=== PATIENT | male | born 1955 | race Caucasian/White ===

== ENCOUNTER 2016-09-13 17:59 | Emergency (ER) | payer BC, MEDICARE ==
[2016-09-13 18:35] VITALS: BP 136/67
[2016-09-13] MEDS ORDERED: Acetaminophen/HYDROcodone 325-5 MG Tab PO ONE (19:09)
--- NOTE | 2016-09-15 10:20 | ER ---
DATE SEEN: 09/13/2016 HISTORY OF PRESENT ILLNESS: The patient is a 60-year-old gentleman, who is status post left total knee replacement, who last , now 3 days ago, had his kim removed and Steri-Strips applied. He states he has been doing relatively well until yesterday when he started having discharge from this wound. He tried to elevate and apply pressure and ice, but still had a little bit of swelling. He states that he has gone through his hydrocodone, has been using ibuprofen and acetaminophen for pain with a little bit of relief, but not much. He has oxycodone, that he has been using and that seems to help a little bit more. He otherwise denies any fevers, chills, nausea, or vomiting. MEDICATIONS: 1. Trazodone. 2. Omeprazole. 3. Prozac. 4. Effexor. 5. Celebrex. 6. Hyzaar. ALLERGIES: No known drug allergies. PAST MEDICAL HISTORY: Depression, knee replacement, and hypertension. REVIEW OF SYSTEMS: RESPIRATORY: No shortness of breath. HEMATOLOGIC: He had an ultrasound done last week for left knee swelling in this region, which was negative for DVT. PHYSICAL EXAMINATION: VITAL SIGNS: Temperature 36.8, blood pressure 136/67, respiratory rate 18, and 100% on room air. GENERAL: He is in no apparent acute distress. EXTREMITIES: Left knee has a midline incision and Steri-Strips applied. There is scant discharge coming out of the lower one-third. His range of motion is limited, but he can flex and extend. EMERGENCY DEPARTMENT COURSE: Area of the wound incision was cleaned. Pressure dressing applied. There has been no recurrent bleeding. ASSESSMENT: Status post left knee replacement with bleeding. PLAN: Elevate, ice, and keep pressure dressing until Thursday, and then follow up with Orthopedics on Thursday. /[id number] GENA/AURELIA
== END 2016-09-13 19:20 | disposition home or self-care (01) ==
LOC: FB.ED 17:59
DX: M96.830 Postprocedural hemorrhage of a musculoskeletal structure following a musculoskeletal system procedure (principal); Z96.652 Presence of left artificial knee joint; I10 Essential (primary) hypertension; F32.9 Major depressive disorder, single episode, unspecified
CPT/HCPCS: 99282; A9270-GY

== ENCOUNTER 2016-09-23 09:57 | Inpatient (IN) | payer BC, MEDICARE ==
[2016-09-23] MEDS: ceFAZolin 2 GM in Premix Bag 1 BAG IV SCH ×2 (15:50→23:51)
[2016-09-23] MEDS: Acetaminophen/HYDROcodone 325-5 MG Tab PO PRN ×2 (15:52→22:46)
[2016-09-23] MEDS ORDERED: ceFAZolin 1 GM in Sodium Chloride 0.9% 50 ML IV SCH (16:00)
[2016-09-23] MEDS ORDERED: Loratadine 10 MG Tab PO PRN (16:12)
[2016-09-23] MEDS: Sodium Chloride 0.9% 10 ML Syringe FLUSH PRN (17:33)
[2016-09-23] MEDS: Heparin Sodium 10 Units/ML 5 ML Syringe FLUSH SCH (17:33)
[2016-09-23] MEDS: FLUoxetine 20 MG Cap PO SCH (17:34)
[2016-09-23] MEDS: Sodium Chloride 0.9% 250 ML IV SCH (17:34)
[2016-09-23] MEDS: Docusate Sodium 100 MG Cap PO SCH ×2 (17:50→20:52)
--- NOTE | 2016-09-23 17:51 | PCM.HP ---
H&P History of Present Illness - General Date of Service: 09/23/16 Admit Problem/Dx: Admission Diagnosis/Problem Admission Diagnosis/Problem Postoperative infection Source of Information: Patient History Limitations: Reports: No Limitations - History of Present Illness Initial Comments - Free Text/Narative: This is a 60-year-old male patient that had a left knee replacement on 08/26/69. He did well until 2 weeks ago and started having some pain and redness. He was evaluated by Dr. Cy Morris who did his surgery. He was found to have abscess in the joint and was admitted to the hospital for IV antibiotics and ID consultation. According to the patient they did surgery and open up the joint and cleaned it out. He is transferred down here for stream bed, PT, OT and IV antibiotics with a PICC line. RIGHTLOWER ARM\HAND Pain Score (Numeric/FACES): 8 LEFT KNEE\LOWER LEG Pain Score (Numeric/FACES): 8 - Related Data Allergies/Adverse Reactions: Allergies Allergy/AdvReac Type Severity Reaction Status Date / Time BARLEY GRAIN Allergy Difficulty Uncoded 09/23/16 14:41 Breathing Home Medications: Home Meds FLUoxetine [PROzac] 20 mg PO WITHDINNER 09/13/16 [History] Losartan/Hydrochlorothiazide [Hyzaar 100-25 Tablet] 1 tab PO DAILY 09/13/16 [ History] Omeprazole 20 mg PO DAILY 09/13/16 [History] Venlafaxine [Effexor] 75 mg PO BID 09/13/16 [History] traZODone HCl [Trazodone HCl] 100 mg PO BEDTIME 09/13/16 [History] Acetaminophen [Acetaminophen Extra Strength] 1,000 mg PO Q6H PRN 09/23/16 [ History] Acetaminophen/HYDROcodone [[place] 325-5 MG] 2 tab PO Q4H PRN 09/23/16 [History] Aspirin [Ecotrin] 325 mg PO BID 09/23/16 [History] Gabapentin [Neurontin] 300 mg PO BID 09/23/16 [History] Loratadine 10 mg PO DAILY PRN 09/23/16 [History] Metoprolol Tartrate [Lopressor] 25 mg PO BID 09/23/16 [History] Morphine [MS Contin] 15 mg PO BID 09/23/16 [History] Multivitamin [Daily Jorge] 1 tab PO DAILY 09/23/16 [History] Rifampin 300 mg PO Q12H 09/23/16 [History] hydrOXYzine Pamoate [Vistaril] 25 mg PO Q4H PRN 09/23/16 [History] Past Medical History HEENT History: Reports: Epistaxis, Hard of Hearing, Impaired Vision, Otitis Media, Sinusitis Cardiovascular History: Reports: Afib, Hypertension, SOB on Exertion Respiratory History: Reports: Bronchitis, Recurrent, SOB Gastrointestinal History: Reports: GERD, Hemorrhoids, Other (See Below) Other Gastrointestinal History: OBESITY Genitourinary History: Reports: UTI, Recurrent Musculoskeletal History: Reports: Arthritis, Back Pain, Chronic, Fracture, Osteoarthritis Psychiatric History: Reports: Depression Dermatologic History: Reports: Other (See Below) Other Dermatologic History: 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 KNEE REPLACEMENTS, BUNIONECTOMY ON LEFT FOOT, BACK SURGERY Dermatological Surgical History: Reports: None Social & Family History - Family History Family Medical History: Noncontributory - Tobacco Use Smoking Status *Q: Never Smoker Second Hand Smoke Exposure: No - Caffeine Use Caffeine Use: Reports: Soda Other Caffeine Use: ABOUT 3 CANS COKE PER DAY. - Recreational Drug Use Recreational Drug Use: No H&P Review of Systems - Review of Systems: Review Of Systems: See Below General: Reports: No Symptoms HEENT: Reports: No Symptoms Pulmonary: Reports: No Symptoms Cardiovascular: Reports: No Symptoms Gastrointestinal: Reports: Constipation Genitourinary: Reports: No Symptoms Musculoskeletal: Reports: Joint Pain Skin: Reports: Other (Right forearm infiltration from IV that swollen.) Psychiatric: Reports: No Symptoms Neurological: Reports: No Symptoms Hematologic/Lymphatic: Reports: No Symptoms Immunologic: Reports: No Symptoms Exam - Exam Exam: See Below - Vital Signs Vital Signs: Last Vital Signs Temp 97.9 F 09/23/16 13:00 Pulse 68 09/23/16 13:00 Resp 24 H 09/23/16 13:00 BP 123/67 09/23/16 13:00 Pulse Ox 100 09/23/16 13:00 Weight: 326 lb 4 oz - Exam General: Alert, Oriented, Cooperative HEENT: Hearing Intact, Posterior Pharynx Clear, TMs Clear Neck: Supple, Trachea Midline, 2 Lungs: Clear to Auscultation, Normal Respiratory Effort Cardiovascular: Regular Rate, Regular Rhythm. No: Systolic Murmur, Diastolic Murmur Abdomen: Normal Bowel Sounds, Soft. No: Peritoneal Signs, Distention, Guarding Back Exam: Normal Inspection Extremities: Other (Right forearm has some swelling and some brownish color forearm. Left knee has a little erythema. [place] in place without any drainage in the left knee.) Skin: Other (See above) Neuro Extensive - Mental Status: Alert, Oriented x3, Normal Mood/Affect, Normal Cognition Neuro Extensive - Motor, Sensory, Reflexes: No: Normal Gait Psychiatric: Alert, Normal Affect, Normal Mood *Q Meaningful Use (ADM) - VTE *Q VTE Criteria *Q: - Stroke *Q Stroke Criteria *Q: - AMI *Q AMI Criteria *Q: - Problem List (1) MRSA (methicillin resistant Staphylococcus aureus) infection SNOMED Code(s): 068956226 ICD Code: A49.02 - METHICILLIN RESIS STAPH INFECTION, UNSP SITE Status: Acute Current Visit: Yes (2) IV infiltration SNOMED Code(s): 96138989 ICD Code: T80.1XXA - VASCULAR COMP FOL INFUSN, TRANFS AND THERAPUTC INJECT, INIT Status: Acute Current Visit: Yes Problem List Initiated/Reviewed/Updated: Yes Orders Last 24hrs: Active Orders 24 hr Category Date Time Status Patient Status [ADT] Routine ADT 09/23/16 14:29 Active Oxygen Therapy [RC] PRN Care 09/23/16 14:29 Active Up With Assistance [RC] ASDIRECTED Care 09/23/16 14:29 Active VTE/DVT Education [RC] Per Unit Routine Care 09/23/16 14:29 Active Vital Signs [RC] 08 Care 09/23/16 14:29 Active Consult to Occupational Therapy [OT Evaluation and Cons 09/23/16 17:11 Active Treatment] [CONS] Routine Consult to Physical Therapy [PT Evaluation and Cons 09/23/16 17:11 Active Treatment] [CONS] Routine Regular Diet [DIET] Diet 09/23/16 Dinner Active CBC WITH AUTO DIFF [HEME] Routine Lab 09/29/16 05:11 Ordered CREATININE W/GFR [CHEM] Routine Lab 09/29/16 06:00 Ordered HEPATIC FUNCTION PANEL,HFP [CHEM] Routine Lab 09/29/16 06:00 Ordered Acetaminophen [Tylenol Extra Strength] Med 09/23/16 14:27 Active 1,000 mg PO Q6H PRN Acetaminophen/HYDROcodone [[place] 325-5 MG] Med 09/23/16 14:27 Active 2 tab PO Q4H PRN Aspirin [Ecotrin] Med 09/23/16 21:00 Active 325 mg PO BID Docusate Sodium [Colace] Med 09/23/16 17:15 Active 100 mg PO BID FLUoxetine [PROzac] Med 09/23/16 18:00 Active 20 mg PO WITHDINNER Gabapentin [Neurontin] Med 09/23/16 21:00 Active 300 mg PO BID Heparin Sodium [Heparin Lock Flush 10 Units/ML] Med 09/23/16 17:00 Active 50 unit FLUSH Q8H Hydrochlorothiazide/Losartan [Hyzaar 100-25 MG] Med 09/24/16 09:00 Active 1 tab PO DAILY Loratadine [Claritin] Med 09/23/16 16:12 Active 10 mg PO DAILY PRN Metoprolol Tartrate [Lopressor] Med 09/23/16 21:00 Active 25 mg PO BID Morphine [MS Contin] Med 09/23/16 21:00 Active 15 mg PO BID Multivitamins [Tab-A-Jorge] Med 09/24/16 09:00 Active 1 tab PO DAILY Omeprazole Med 09/24/16 06:00 Active 20 mg PO DAILY@0600 Rifampin [Rifadin] Med 09/23/16 21:00 Active 300 mg PO BID Sodium Chloride 0.9% [Normal Saline] 250 ml Med 09/23/16 16:15 Active IV ASDIRECTED Sodium Chloride 0.9% [Saline Flush] Med 09/23/16 16:12 Active 10 ml FLUSH ASDIRECTED PRN Venlafaxine [Effexor] Med 09/23/16 21:00 Active 75 mg PO BID ceFAZolin [Ancef] 2 gm Med 09/23/16 16:00 Active Premix Bag 1 bag IV Q8H hydrOXYzine HCl [Atarax] Med 09/23/16 14:44 Active 25 mg PO Q4H PRN traZODone Med 09/23/16 21:00 Active 100 mg PO BEDTIME Resuscitation Status Routine Resus Stat 09/23/16 14:29 Ordered Medication Orders Acetaminophen (Tylenol Extra Strength) 1,000 mg PO Q6H PRN PRN Reason: MILD PAIN Hydrocodone Bitart/Acetaminophen ([place] 325-5 Mg) 2 tab PO Q4H PRN PRN Reason: Pain Last Admin: 09/23/16 15:52 Dose: 2 tab Aspirin (Ecotrin) 325 mg PO BID [facility] Docusate Sodium (Colace) 100 mg PO BID [facility] Fluoxetine HCl (Prozac) 20 mg PO WITHDINNER [facility] Last Admin: 09/23/16 17:34 Dose: 20 mg Gabapentin (Neurontin) 300 mg PO BID [facility] HCTZ/Losartan Potassium (Hyzaar 100-25 Mg) 1 tab PO DAILY [facility] Heparin Sodium (Porcine) (Heparin Lock Flush 10 Units/Ml) 50 unit FLUSH Q8H [facility] Last Admin: 09/23/16 17:33 Dose: 50 unit Hydroxyzine HCl (Atarax) 25 mg PO Q4H PRN PRN Reason: PAIN/ITCHING Cefazolin Sodium/Dextrose 2 gm (/ Premix) 50 mls @ 100 mls/hr IV Q8H [facility] Stop: 10/29/16 18:00 Last Admin: 09/23/16 15:50 Dose: 100 mls/hr Sodium Chloride (Normal Saline) 250 mls @ 100 mls/hr IV ASDIRECTED [facility] Last Admin: 09/23/16 17:34 Dose: 100 mls/hr Loratadine (Claritin) 10 mg PO DAILY PRN PRN Reason: ALLERGIES Metoprolol Tartrate (Lopressor) 25 mg PO BID [facility] Morphine Sulfate (Ms Contin) 15 mg PO BID [facility] Multivitamins/Minerals/Vitamin C (Tab-A-Jorge) 1 tab PO DAILY [facility] Omeprazole (Omeprazole) 20 mg PO DAILY@0600 [facility] Rifampin (Rifadin) 300 mg PO BID [facility] Sodium Chloride (Saline Flush) 10 ml FLUSH ASDIRECTED PRN PRN Reason: Keep Vein Open Last Admin: 09/23/16 17:33 Dose: 10 ml Trazodone HCl (Trazodone) 100 mg PO BEDTIME [facility] Venlafaxine HCl (Effexor) 75 mg PO BID [facility] Assessment/Plan Comment:: 1. Patient admitted to swing bed for IV antibiotics/PT/OT on full code. 2. Regular diet 3. Upper PT/OT. 4. PICC line with IV antibiotics per infectious disease. Infectious disease
[2016-09-23] MEDS: Aspirin 325 MG Tab.EC PO SCH (20:31)
[2016-09-23] MEDS: Venlafaxine 75 MG Tab PO SCH (20:32)
[2016-09-23] MEDS: Metoprolol Tartrate 25 MG Tab PO SCH (20:33)
[2016-09-23] MEDS: Morphine 15 MG Tab.ER PO SCH (20:34)
[2016-09-23] MEDS: traZODone 100 MG Tab PO SCH (20:37)
[2016-09-23] MEDS: Rifampin 150 MG Cap PO SCH (20:38)
[2016-09-23] MEDS: Gabapentin 300 MG Cap PO SCH (20:43)
[2016-09-23] MEDS ORDERED: Rifampin 300 MG Cap PO SCH (21:00)
[2016-09-24] MEDS: Acetaminophen/HYDROcodone 325-5 MG Tab PO PRN ×3 (03:15→19:16)
[2016-09-24] MEDS: hydrOXYzine HCl 25 MG Tab PO PRN ×2 (03:15→21:57)
[2016-09-24] MEDS: Omeprazole 20 MG Cap.CR PO SCH (05:16)
[2016-09-24] MEDS: Morphine 15 MG Tab.ER PO SCH ×2 (08:47→21:54)
[2016-09-24] MEDS: Acetaminophen 500 MG Tab PO PRN (08:48)
[2016-09-24] MEDS: Docusate Sodium 100 MG Cap PO SCH ×2 (08:51→21:50)
[2016-09-24] MEDS: Aspirin 325 MG Tab.EC PO SCH ×2 (08:51→21:50)
[2016-09-24] MEDS: Venlafaxine 75 MG Tab PO SCH ×2 (08:51→21:51)
[2016-09-24] MEDS: Hydrochlorothiazide/Losartan 25-100 MG Tab PO SCH (08:52)
[2016-09-24] MEDS: Metoprolol Tartrate 25 MG Tab PO SCH ×2 (08:53→21:51)
[2016-09-24] MEDS: Rifampin 150 MG Cap PO SCH ×2 (08:54→21:56)
[2016-09-24] MEDS: Multivitamin Tab PO SCH (08:55)
[2016-09-24] MEDS: Gabapentin 300 MG Cap PO SCH ×2 (08:55→21:54)
[2016-09-24] MEDS: Sodium Chloride 0.9% 10 ML Syringe FLUSH PRN (08:56)
[2016-09-24] MEDS: ceFAZolin 2 GM in Premix Bag 1 BAG IV SCH ×2 (08:58→16:26)
[2016-09-24] MEDS: Sodium Chloride 0.9% 250 ML IV SCH (08:58)
[2016-09-24] MEDS: Heparin Sodium 10 Units/ML 5 ML Syringe FLUSH SCH ×3 (10:35→17:15)
[2016-09-24] MEDS: FLUoxetine 20 MG Cap PO SCH (17:16)
[2016-09-24] MEDS: traZODone 100 MG Tab PO SCH (21:56)
[2016-09-25] MEDS: Sodium Chloride 0.9% 10 ML Syringe FLUSH PRN ×5 (01:55→15:56)
[2016-09-25] MEDS: Heparin Sodium 10 Units/ML 5 ML Syringe FLUSH SCH ×3 (01:55→16:56)
[2016-09-25] MEDS: Acetaminophen/HYDROcodone 325-5 MG Tab PO PRN ×4 (01:56→20:15)
[2016-09-25] MEDS: Omeprazole 20 MG Cap.CR PO SCH (05:56)
[2016-09-25] MEDS: ceFAZolin 2 GM in Premix Bag 1 BAG IV SCH ×5 (07:59→23:37)
[2016-09-25] MEDS: Sodium Chloride 0.9% 250 ML IV SCH (08:00)
[2016-09-25] MEDS: Docusate Sodium 100 MG Cap PO SCH ×2 (08:09→20:18)
[2016-09-25] MEDS: Aspirin 325 MG Tab.EC PO SCH ×2 (08:09→20:19)
[2016-09-25] MEDS: Venlafaxine 75 MG Tab PO SCH ×2 (08:10→20:19)
[2016-09-25] MEDS: Hydrochlorothiazide/Losartan 25-100 MG Tab PO SCH (08:10)
[2016-09-25] MEDS: Metoprolol Tartrate 25 MG Tab PO SCH ×2 (08:10→20:19)
[2016-09-25] MEDS: Gabapentin 300 MG Cap PO SCH ×2 (08:11→20:20)
[2016-09-25] MEDS: Rifampin 150 MG Cap PO SCH ×2 (08:11→20:21)
[2016-09-25] MEDS: Multivitamin Tab PO SCH (08:11)
[2016-09-25] MEDS: Morphine 15 MG Tab.ER PO SCH ×2 (08:32→20:40)
[2016-09-25] MEDS: FLUoxetine 20 MG Cap PO SCH (18:41)
[2016-09-25] MEDS: traZODone 100 MG Tab PO SCH (20:21)
[2016-09-25] MEDS: hydrOXYzine HCl 25 MG Tab PO PRN (23:36)
[2016-09-26] MEDS: Heparin Sodium 10 Units/ML 5 ML Syringe FLUSH SCH ×3 (00:29→17:03)
[2016-09-26] MEDS: Omeprazole 20 MG Cap.CR PO SCH (05:53)
[2016-09-26] MEDS: Acetaminophen/HYDROcodone 325-5 MG Tab PO PRN ×2 (07:37→15:57)
[2016-09-26] MEDS: ceFAZolin 2 GM in Premix Bag 1 BAG IV SCH ×2 (08:43→16:02)
[2016-09-26] MEDS: Aspirin 325 MG Tab.EC PO SCH ×2 (08:43→20:32)
[2016-09-26] MEDS: Docusate Sodium 100 MG Cap PO SCH ×2 (08:43→20:32)
[2016-09-26] MEDS: Venlafaxine 75 MG Tab PO SCH ×2 (08:44→20:32)
[2016-09-26] MEDS: Morphine 15 MG Tab.ER PO SCH ×2 (08:45→20:40)
[2016-09-26] MEDS: Metoprolol Tartrate 25 MG Tab PO SCH ×2 (08:45→20:33)
[2016-09-26] MEDS: Hydrochlorothiazide/Losartan 25-100 MG Tab PO SCH (08:45)
[2016-09-26] MEDS: Gabapentin 300 MG Cap PO SCH ×2 (08:46→20:41)
[2016-09-26] MEDS: Multivitamin Tab PO SCH (08:46)
[2016-09-26] MEDS: Rifampin 150 MG Cap PO SCH ×2 (08:46→20:42)
[2016-09-26] MEDS: FLUoxetine 20 MG Cap PO SCH (17:21)
[2016-09-26] MEDS: hydrOXYzine HCl 25 MG Tab PO PRN (17:21)
[2016-09-26] MEDS: traZODone 100 MG Tab PO SCH (20:42)
[2016-09-27] MEDS: Heparin Sodium 10 Units/ML 5 ML Syringe FLUSH SCH ×3 (00:39→18:45)
[2016-09-27] MEDS: Acetaminophen/HYDROcodone 325-5 MG Tab PO PRN ×3 (00:50→14:11)
[2016-09-27] MEDS: Omeprazole 20 MG Cap.CR PO SCH (05:19)
[2016-09-27] MEDS: Sodium Chloride 0.9% 250 ML IV SCH (08:14)
[2016-09-27] MEDS: Sodium Chloride 0.9% 10 ML Syringe FLUSH PRN ×2 (08:14→09:33)
[2016-09-27] MEDS: ceFAZolin 2 GM in Premix Bag 1 BAG IV SCH ×5 (08:14→23:34)
[2016-09-27] MEDS: Aspirin 325 MG Tab.EC PO SCH ×2 (09:36→20:35)
[2016-09-27] MEDS: Metoprolol Tartrate 25 MG Tab PO SCH ×2 (09:36→20:36)
[2016-09-27] MEDS: Venlafaxine 75 MG Tab PO SCH ×2 (09:36→20:35)
[2016-09-27] MEDS: Multivitamin Tab PO SCH (09:37)
[2016-09-27] MEDS: Gabapentin 300 MG Cap PO SCH ×2 (09:37→20:36)
[2016-09-27] MEDS: Morphine 15 MG Tab.ER PO SCH ×2 (09:37→20:35)
[2016-09-27] MEDS: Hydrochlorothiazide/Losartan 25-100 MG Tab PO SCH (09:38)
[2016-09-27] MEDS: Rifampin 150 MG Cap PO SCH ×2 (09:38→20:36)
[2016-09-27] MEDS: Docusate Sodium 100 MG Cap PO SCH ×2 (09:39→20:34)
[2016-09-27] MEDS: FLUoxetine 20 MG Cap PO SCH (18:44)
[2016-09-27] MEDS: traZODone 100 MG Tab PO SCH (18:44)
[2016-09-27] MEDS: hydrOXYzine HCl 25 MG Tab PO PRN (19:13)
[2016-09-28] MEDS: Heparin Sodium 10 Units/ML 5 ML Syringe FLUSH SCH ×3 (00:25→18:13)
[2016-09-28] MEDS: Omeprazole 20 MG Cap.CR PO SCH (06:25)
[2016-09-28] MEDS: Morphine 15 MG Tab.ER PO SCH ×2 (09:02→20:10)
[2016-09-28] MEDS: ceFAZolin 2 GM in Premix Bag 1 BAG IV SCH ×3 (09:02→23:38)
[2016-09-28] MEDS: Aspirin 325 MG Tab.EC PO SCH ×2 (09:03→20:09)
[2016-09-28] MEDS: Gabapentin 300 MG Cap PO SCH ×2 (09:03→20:11)
[2016-09-28] MEDS: Metoprolol Tartrate 25 MG Tab PO SCH ×2 (09:03→20:09)
[2016-09-28] MEDS: Hydrochlorothiazide/Losartan 25-100 MG Tab PO SCH (09:04)
[2016-09-28] MEDS: Multivitamin Tab PO SCH (09:04)
[2016-09-28] MEDS: Venlafaxine 75 MG Tab PO SCH ×2 (09:05→20:09)
[2016-09-28] MEDS: Rifampin 150 MG Cap PO SCH ×2 (09:05→20:11)
[2016-09-28] MEDS: Docusate Sodium 100 MG Cap PO SCH ×2 (09:05→20:08)
[2016-09-28] MEDS: Sodium Chloride 0.9% 10 ML Syringe FLUSH PRN (09:51)
[2016-09-28] MEDS: traZODone 100 MG Tab PO SCH (18:57)
[2016-09-28] MEDS: FLUoxetine 20 MG Cap PO SCH (18:57)
[2016-09-28] MEDS: Acetaminophen/HYDROcodone 325-5 MG Tab PO PRN (18:57)
[2016-09-28] MEDS: hydrOXYzine HCl 25 MG Tab PO PRN (18:57)
[2016-09-29] MEDS: Heparin Sodium 10 Units/ML 5 ML Syringe FLUSH SCH ×3 (00:29→17:05)
[2016-09-29] MEDS: Omeprazole 20 MG Cap.CR PO SCH (05:35)
[2016-09-29] MEDS: Sodium Chloride 0.9% 10 ML Syringe FLUSH PRN ×2 (06:33→17:06)
[2016-09-29] MEDS: Morphine 15 MG Tab.ER PO SCH ×2 (08:31→21:09)
[2016-09-29] MEDS: Multivitamin Tab PO SCH (08:33)
[2016-09-29] MEDS: Docusate Sodium 100 MG Cap PO SCH ×2 (08:33→21:10)
[2016-09-29] MEDS: Aspirin 325 MG Tab.EC PO SCH ×2 (08:33→21:10)
[2016-09-29] MEDS: ceFAZolin 2 GM in Premix Bag 1 BAG IV SCH ×2 (08:33→17:05)
[2016-09-29] MEDS: Venlafaxine 75 MG Tab PO SCH ×2 (08:34→21:10)
[2016-09-29] MEDS: Hydrochlorothiazide/Losartan 25-100 MG Tab PO SCH (08:34)
[2016-09-29] MEDS: Rifampin 150 MG Cap PO SCH ×2 (08:35→21:10)
[2016-09-29] MEDS: Gabapentin 300 MG Cap PO SCH ×2 (08:35→21:10)
[2016-09-29] MEDS: Metoprolol Tartrate 25 MG Tab PO SCH ×2 (08:44→21:10)
[2016-09-29] MEDS: traZODone 100 MG Tab PO SCH (17:06)
[2016-09-29] MEDS: FLUoxetine 20 MG Cap PO SCH (17:06)
[2016-09-29] MEDS: Sodium Chloride 0.9% 250 ML IV SCH (17:08)
[2016-09-29] MEDS: hydrOXYzine HCl 25 MG Tab PO PRN (17:28)
[2016-09-29] MEDS: Acetaminophen/HYDROcodone 325-5 MG Tab PO PRN (17:29)
[2016-09-30] MEDS: ceFAZolin 2 GM in Premix Bag 1 BAG IV SCH ×4 (00:02→23:49)
[2016-09-30] MEDS: Heparin Sodium 10 Units/ML 5 ML Syringe FLUSH SCH ×3 (00:48→17:07)
[2016-09-30] MEDS: Omeprazole 20 MG Cap.CR PO SCH (06:13)
[2016-09-30] MEDS: Sodium Chloride 0.9% 10 ML Syringe FLUSH PRN (08:03)
[2016-09-30] MEDS: Rifampin 150 MG Cap PO SCH ×2 (08:11→20:52)
[2016-09-30] MEDS: Metoprolol Tartrate 25 MG Tab PO SCH ×2 (08:11→20:50)
[2016-09-30] MEDS: Multivitamin Tab PO SCH (08:11)
[2016-09-30] MEDS: Aspirin 325 MG Tab.EC PO SCH ×2 (08:11→20:51)
[2016-09-30] MEDS: Gabapentin 300 MG Cap PO SCH ×2 (08:11→20:52)
[2016-09-30] MEDS: Venlafaxine 75 MG Tab PO SCH ×2 (08:11→20:51)
[2016-09-30] MEDS: Hydrochlorothiazide/Losartan 25-100 MG Tab PO SCH (08:11)
[2016-09-30] MEDS: Docusate Sodium 100 MG Cap PO SCH ×2 (08:11→20:50)
[2016-09-30] MEDS: Morphine 15 MG Tab.ER PO SCH ×2 (08:52→20:51)
[2016-09-30] MEDS: Acetaminophen/HYDROcodone 325-5 MG Tab PO PRN (14:53)
[2016-09-30] MEDS: FLUoxetine 20 MG Cap PO SCH (17:08)
[2016-09-30] MEDS: traZODone 100 MG Tab PO SCH (17:09)
[2016-09-30] MEDS: hydrOXYzine HCl 25 MG Tab PO PRN (19:47)
[2016-09-30] MEDS: Sodium Chloride 0.9% 250 ML IV SCH (23:48)
[2016-10-01] MEDS: Heparin Sodium 10 Units/ML 5 ML Syringe FLUSH SCH ×3 (00:37→17:03)
[2016-10-01] MEDS: Omeprazole 20 MG Cap.CR PO SCH (06:09)
[2016-10-01] MEDS: hydrOXYzine HCl 25 MG Tab PO PRN (06:09)
[2016-10-01] MEDS: ceFAZolin 2 GM in Premix Bag 1 BAG IV SCH ×3 (07:23→23:45)
[2016-10-01] MEDS: Hydrochlorothiazide/Losartan 25-100 MG Tab PO SCH (08:40)
[2016-10-01] MEDS: Rifampin 150 MG Cap PO SCH ×2 (08:40→20:58)
[2016-10-01] MEDS: Gabapentin 300 MG Cap PO SCH ×2 (08:40→20:58)
[2016-10-01] MEDS: Morphine 15 MG Tab.ER PO SCH ×2 (08:41→20:57)
[2016-10-01] MEDS: Docusate Sodium 100 MG Cap PO SCH ×2 (08:41→20:50)
[2016-10-01] MEDS: Venlafaxine 75 MG Tab PO SCH ×2 (08:41→20:50)
[2016-10-01] MEDS: Aspirin 325 MG Tab.EC PO SCH ×2 (08:42→20:50)
[2016-10-01] MEDS: Multivitamin Tab PO SCH (08:42)
[2016-10-01] MEDS: Sodium Chloride 0.9% 10 ML Syringe FLUSH PRN ×3 (08:44→17:03)
[2016-10-01] MEDS: Metoprolol Tartrate 25 MG Tab PO SCH ×2 (09:00→20:51)
[2016-10-01] MEDS: Acetaminophen/HYDROcodone 325-5 MG Tab PO PRN ×2 (12:04→17:04)
[2016-10-01] MEDS: Sodium Chloride 0.9% 250 ML IV SCH (16:07)
[2016-10-01] MEDS: FLUoxetine 20 MG Cap PO SCH (17:05)
[2016-10-01] MEDS: traZODone 100 MG Tab PO SCH (17:05)
[2016-10-01] MEDS ORDERED: Enoxaparin 40 MG/0.4 ML Syringe SUBCUT SCH (21:00)
--- NOTE | 2016-10-01 21:11 | PCM.SN ---
- Free Text/Narrative Note: asked to see pt by daughter due to concerns for peripheral edema, increased pain in the right and left leg, and concern for DVT. currently swingbed for 2wk IV antibiotics and PT secondary to left knee joint infection s/p Left TKA, with culture positive for MSSA and now on IV ancef. He has done quite well with Pt. today seem to really 'tree' him out as his legs were more swollen and his feet were also beginning to hurt. Jonathan wraps applied and he notes this has helped. Exam shows bilateral edema up to knees. symetric minimal warmth that is equal and no additional swelling or thigh pain. knee other lin healthy. sensation and perfusion intact. 3+ pitting edema to the feet and ankles. cap refill <2sec and feet warm. US bilateral negative for DVTs. Pt and his daughter were reassured. will add jonathan to the right leg as well. will get his pain medication scheduled rather that prn as he was under the impression that they would just bring it to him instead of his needing to request it. therefore we have gotten behind on pain control. he knows now that it will be scheduled and that if he dose not need it, then he can refuse it at that time. all question answered and they are both comfortable with plan and reassured.
[2016-10-01] MEDS: Acetaminophen/HYDROcodone 325-5 MG Tab PO SCH (22:11)
[2016-10-02] MEDS: Heparin Sodium 10 Units/ML 5 ML Syringe FLUSH SCH ×3 (00:37→17:15)
[2016-10-02] MEDS: Acetaminophen/HYDROcodone 325-5 MG Tab PO SCH ×4 (03:42→22:47)
[2016-10-02] MEDS: Omeprazole 20 MG Cap.CR PO SCH (07:03)
[2016-10-02] MEDS: Aspirin 325 MG Tab.EC PO SCH ×2 (08:13→21:02)
[2016-10-02] MEDS: Docusate Sodium 100 MG Cap PO SCH ×2 (08:13→21:01)
[2016-10-02] MEDS: Rifampin 150 MG Cap PO SCH ×2 (08:13→21:03)
[2016-10-02] MEDS: Multivitamin Tab PO SCH (08:13)
[2016-10-02] MEDS: Hydrochlorothiazide/Losartan 25-100 MG Tab PO SCH (08:13)
[2016-10-02] MEDS: ceFAZolin 2 GM in Premix Bag 1 BAG IV SCH ×2 (08:13→16:11)
[2016-10-02] MEDS: Venlafaxine 75 MG Tab PO SCH ×2 (08:13→21:02)
[2016-10-02] MEDS: Gabapentin 300 MG Cap PO SCH ×2 (08:13→21:03)
[2016-10-02] MEDS: Morphine 15 MG Tab.ER PO SCH ×2 (08:23→21:02)
[2016-10-02] MEDS: Metoprolol Tartrate 25 MG Tab PO SCH ×2 (08:24→21:02)
[2016-10-02] MEDS: Sodium Chloride 0.9% 250 ML IV SCH (16:21)
[2016-10-02] MEDS: Sodium Chloride 0.9% 10 ML Syringe FLUSH PRN (16:24)
--- NOTE | 2016-10-02 16:28 | US ---
INDICATION: Pain and swelling in legs. DUPLEX ULTRASOUND, RIGHT AND LEFT LOWER EXTREMITY VEINS: Utilizing 2-D real time, duplex Doppler spectral analysis, and color flow imaging, examination of the right and left lower extremity veins revealed no evidence of deep venous thrombosis or obstruction. Compression views showed no abnormal lack of compression to suggest thrombosis. The patient was unable to perform Valsalva. Valvular competence was not evaluated. Interstitial edema is noted in the calves, limiting visualization of the anterior tibial and peroneal veins. IMPRESSION: 1. Duplex ultrasound, right and left lower extremity veins, shows no evidence of deep venous thrombosis. 2. Valvular competence was not evaluated. MTDD
[2016-10-02] MEDS: FLUoxetine 20 MG Cap PO SCH (17:16)
[2016-10-02] MEDS: traZODone 100 MG Tab PO SCH (17:17)
[2016-10-02] MEDS: hydrOXYzine HCl 25 MG Tab PO PRN (17:30)
[2016-10-02] MEDS: Enoxaparin 40 MG/0.4 ML Syringe SUBCUT SCH (21:02)
[2016-10-03] MEDS: ceFAZolin 2 GM in Premix Bag 1 BAG IV SCH ×4 (00:30→23:52)
[2016-10-03] MEDS: Heparin Sodium 10 Units/ML 5 ML Syringe FLUSH SCH ×3 (00:42→16:46)
[2016-10-03] MEDS: Acetaminophen/HYDROcodone 325-5 MG Tab PO SCH ×4 (05:00→21:26)
[2016-10-03] MEDS: Omeprazole 20 MG Cap.CR PO SCH (05:00)
[2016-10-03] MEDS: Aspirin 325 MG Tab.EC PO SCH ×2 (08:31→20:20)
[2016-10-03] MEDS: Docusate Sodium 100 MG Cap PO SCH ×2 (08:31→20:19)
[2016-10-03] MEDS: Hydrochlorothiazide/Losartan 25-100 MG Tab PO SCH (08:31)
[2016-10-03] MEDS: Metoprolol Tartrate 25 MG Tab PO SCH ×2 (08:31→20:21)
[2016-10-03] MEDS: Morphine 15 MG Tab.ER PO SCH ×2 (08:31→21:28)
[2016-10-03] MEDS: Loratadine 10 MG Tab PO SCH (08:31)
[2016-10-03] MEDS: Venlafaxine 75 MG Tab PO SCH ×2 (08:31→20:20)
[2016-10-03] MEDS: Multivitamin Tab PO SCH (08:32)
[2016-10-03] MEDS: Gabapentin 300 MG Cap PO SCH ×2 (08:32→20:27)
[2016-10-03] MEDS: Rifampin 150 MG Cap PO SCH ×2 (08:32→20:27)
[2016-10-03] MEDS: Sodium Chloride 0.9% 10 ML Syringe FLUSH PRN ×2 (15:45→16:46)
[2016-10-03] MEDS: FLUoxetine 20 MG Cap PO SCH (17:01)
[2016-10-03] MEDS: traZODone 100 MG Tab PO SCH (17:01)
[2016-10-03] MEDS: Enoxaparin 40 MG/0.4 ML Syringe SUBCUT SCH (20:25)
[2016-10-03] MEDS: hydrOXYzine HCl 25 MG Tab PO PRN (21:27)
[2016-10-04] MEDS: Heparin Sodium 10 Units/ML 5 ML Syringe FLUSH SCH ×3 (00:18→17:31)
[2016-10-04] MEDS: Acetaminophen/HYDROcodone 325-5 MG Tab PO SCH ×4 (03:30→21:57)
[2016-10-04] MEDS: Omeprazole 20 MG Cap.CR PO SCH (06:38)
[2016-10-04] MEDS: Sodium Chloride 0.9% 10 ML Syringe FLUSH PRN ×2 (08:21→16:35)
[2016-10-04] MEDS: Sodium Chloride 0.9% 250 ML IV SCH (08:22)
[2016-10-04] MEDS: ceFAZolin 2 GM in Premix Bag 1 BAG IV SCH ×2 (08:22→16:32)
[2016-10-04] MEDS: Loratadine 10 MG Tab PO SCH (09:28)
[2016-10-04] MEDS: Aspirin 325 MG Tab.EC PO SCH ×2 (09:28→21:08)
[2016-10-04] MEDS: Hydrochlorothiazide/Losartan 25-100 MG Tab PO SCH (09:28)
[2016-10-04] MEDS: Docusate Sodium 100 MG Cap PO SCH ×2 (09:28→21:08)
[2016-10-04] MEDS: Venlafaxine 75 MG Tab PO SCH ×2 (09:29→21:08)
[2016-10-04] MEDS: Metoprolol Tartrate 25 MG Tab PO SCH ×2 (09:30→21:08)
[2016-10-04] MEDS: Gabapentin 300 MG Cap PO SCH ×2 (09:32→21:08)
[2016-10-04] MEDS: Multivitamin Tab PO SCH (09:33)
[2016-10-04] MEDS: Rifampin 150 MG Cap PO SCH ×2 (09:33→21:08)
[2016-10-04] MEDS: Morphine 15 MG Tab.ER PO SCH ×2 (09:44→21:11)
[2016-10-04] MEDS: hydrOXYzine HCl 25 MG Tab PO PRN ×2 (18:07→21:58)
[2016-10-04] MEDS: traZODone 100 MG Tab PO SCH (18:07)
[2016-10-04] MEDS: FLUoxetine 20 MG Cap PO SCH (18:08)
[2016-10-04] MEDS: Enoxaparin 40 MG/0.4 ML Syringe SUBCUT SCH (21:13)
[2016-10-05] MEDS: ceFAZolin 2 GM in Premix Bag 1 BAG IV SCH ×3 (00:07→16:31)
[2016-10-05] MEDS: Heparin Sodium 10 Units/ML 5 ML Syringe FLUSH SCH ×3 (00:49→17:22)
[2016-10-05] MEDS: Acetaminophen/HYDROcodone 325-5 MG Tab PO SCH ×3 (06:30→21:49)
[2016-10-05] MEDS: Omeprazole 20 MG Cap.CR PO SCH (06:30)
[2016-10-05] MEDS: Sodium Chloride 0.9% 250 ML IV SCH (08:17)
[2016-10-05] MEDS: Docusate Sodium 100 MG Cap PO SCH ×2 (08:45→21:38)
[2016-10-05] MEDS: Gabapentin 300 MG Cap PO SCH ×2 (08:45→21:42)
[2016-10-05] MEDS: Loratadine 10 MG Tab PO SCH (08:45)
[2016-10-05] MEDS: Morphine 15 MG Tab.ER PO SCH ×2 (08:45→21:50)
[2016-10-05] MEDS: Metoprolol Tartrate 25 MG Tab PO SCH ×2 (08:45→21:39)
[2016-10-05] MEDS: Aspirin 325 MG Tab.EC PO SCH ×2 (08:45→21:38)
[2016-10-05] MEDS: Hydrochlorothiazide/Losartan 25-100 MG Tab PO SCH (08:45)
[2016-10-05] MEDS: Venlafaxine 75 MG Tab PO SCH ×2 (08:45→21:38)
[2016-10-05] MEDS: Multivitamin Tab PO SCH (08:46)
[2016-10-05] MEDS: Rifampin 150 MG Cap PO SCH ×2 (08:46→21:38)
[2016-10-05] MEDS: Sodium Chloride 0.9% 10 ML Syringe FLUSH PRN ×2 (16:32→17:23)
[2016-10-05] MEDS: FLUoxetine 20 MG Cap PO SCH (17:23)
[2016-10-05] MEDS: traZODone 100 MG Tab PO SCH (17:23)
[2016-10-05] MEDS: hydrOXYzine HCl 25 MG Tab PO PRN (17:23)
[2016-10-05] MEDS: Enoxaparin 40 MG/0.4 ML Syringe SUBCUT SCH (21:42)
[2016-10-06] MEDS: ceFAZolin 2 GM in Premix Bag 1 BAG IV SCH ×3 (00:07→16:03)
[2016-10-06] MEDS: Heparin Sodium 10 Units/ML 5 ML Syringe FLUSH SCH ×3 (01:07→17:30)
[2016-10-06] MEDS: Acetaminophen/HYDROcodone 325-5 MG Tab PO SCH ×4 (02:32→20:20)
[2016-10-06] MEDS: Omeprazole 20 MG Cap.CR PO SCH (06:32)
[2016-10-06] MEDS: Sodium Chloride 0.9% 10 ML Syringe FLUSH PRN ×2 (08:20→09:13)
[2016-10-06] MEDS: Sodium Chloride 0.9% 250 ML IV SCH (09:14)
[2016-10-06] MEDS: Morphine 15 MG Tab.ER PO SCH ×2 (09:20→21:48)
[2016-10-06] MEDS: Docusate Sodium 100 MG Cap PO SCH ×2 (09:22→21:43)
[2016-10-06] MEDS: Loratadine 10 MG Tab PO SCH (09:22)
[2016-10-06] MEDS: Aspirin 325 MG Tab.EC PO SCH ×2 (09:22→21:43)
[2016-10-06] MEDS: Venlafaxine 75 MG Tab PO SCH ×2 (09:23→21:42)
[2016-10-06] MEDS: Metoprolol Tartrate 25 MG Tab PO SCH ×2 (09:23→21:41)
[2016-10-06] MEDS: Hydrochlorothiazide/Losartan 25-100 MG Tab PO SCH (09:23)
[2016-10-06] MEDS: Gabapentin 300 MG Cap PO SCH ×2 (09:24→21:42)
[2016-10-06] MEDS: Rifampin 150 MG Cap PO SCH ×2 (09:24→21:41)
[2016-10-06] MEDS: Multivitamin Tab PO SCH (09:24)
[2016-10-06] MEDS: FLUoxetine 20 MG Cap PO SCH (17:30)
[2016-10-06] MEDS: traZODone 100 MG Tab PO SCH (17:30)
[2016-10-06] MEDS: hydrOXYzine HCl 25 MG Tab PO PRN (20:24)
[2016-10-06] MEDS: Enoxaparin 40 MG/0.4 ML Syringe SUBCUT SCH (21:43)
[2016-10-07] MEDS: ceFAZolin 2 GM in Premix Bag 1 BAG IV SCH ×4 (00:16→23:57)
[2016-10-07] MEDS: Heparin Sodium 10 Units/ML 5 ML Syringe FLUSH SCH ×3 (01:10→16:38)
[2016-10-07] MEDS: Acetaminophen/HYDROcodone 325-5 MG Tab PO SCH ×4 (02:09→20:28)
[2016-10-07] MEDS: Omeprazole 20 MG Cap.CR PO SCH (05:34)
[2016-10-07] MEDS: Sodium Chloride 0.9% 10 ML Syringe FLUSH PRN ×2 (07:57→15:37)
[2016-10-07] MEDS: Loratadine 10 MG Tab PO SCH (08:12)
[2016-10-07] MEDS: Aspirin 325 MG Tab.EC PO SCH ×2 (08:13→20:27)
[2016-10-07] MEDS: Multivitamin Tab PO SCH (08:13)
[2016-10-07] MEDS: Rifampin 150 MG Cap PO SCH ×2 (08:13→20:27)
[2016-10-07] MEDS: Docusate Sodium 100 MG Cap PO SCH ×2 (08:13→20:27)
[2016-10-07] MEDS: Hydrochlorothiazide/Losartan 25-100 MG Tab PO SCH (08:14)
[2016-10-07] MEDS: Metoprolol Tartrate 25 MG Tab PO SCH ×2 (08:14→20:28)
[2016-10-07] MEDS: Gabapentin 300 MG Cap PO SCH ×2 (08:14→20:27)
[2016-10-07] MEDS: Venlafaxine 75 MG Tab PO SCH ×2 (08:15→20:27)
[2016-10-07] MEDS: Morphine 15 MG Tab.ER PO SCH ×3 (08:16→20:28)
[2016-10-07] MEDS: Sodium Chloride 0.9% 250 ML IV SCH (15:40)
[2016-10-07] MEDS: FLUoxetine 20 MG Cap PO SCH (18:13)
[2016-10-07] MEDS: traZODone 100 MG Tab PO SCH (18:13)
[2016-10-07] MEDS: hydrOXYzine HCl 25 MG Tab PO PRN (18:21)
[2016-10-07] MEDS: Enoxaparin 40 MG/0.4 ML Syringe SUBCUT SCH (20:28)
[2016-10-08] MEDS: Heparin Sodium 10 Units/ML 5 ML Syringe FLUSH SCH ×3 (00:47→16:51)
[2016-10-08] MEDS: Acetaminophen/HYDROcodone 325-5 MG Tab PO SCH ×4 (02:02→20:30)
[2016-10-08] MEDS: Omeprazole 20 MG Cap.CR PO SCH (06:32)
[2016-10-08] MEDS: Morphine 15 MG Tab.ER PO SCH ×2 (08:56→20:29)
[2016-10-08] MEDS: Loratadine 10 MG Tab PO SCH (09:04)
[2016-10-08] MEDS: Docusate Sodium 100 MG Cap PO SCH ×2 (09:04→20:23)
[2016-10-08] MEDS: Aspirin 325 MG Tab.EC PO SCH ×2 (09:05→20:23)
[2016-10-08] MEDS: Venlafaxine 75 MG Tab PO SCH ×2 (09:05→20:23)
[2016-10-08] MEDS: Hydrochlorothiazide/Losartan 25-100 MG Tab PO SCH (09:06)
[2016-10-08] MEDS: Metoprolol Tartrate 25 MG Tab PO SCH ×2 (09:06→20:23)
[2016-10-08] MEDS: Gabapentin 300 MG Cap PO SCH ×2 (09:08→20:27)
[2016-10-08] MEDS: Rifampin 150 MG Cap PO SCH ×2 (09:08→20:27)
[2016-10-08] MEDS: Multivitamin Tab PO SCH (09:09)
[2016-10-08] MEDS: Sodium Chloride 0.9% 10 ML Syringe FLUSH PRN (09:18)
[2016-10-08] MEDS: Sodium Chloride 0.9% 250 ML IV SCH (09:20)
[2016-10-08] MEDS: ceFAZolin 2 GM in Premix Bag 1 BAG IV SCH ×2 (09:22→15:56)
[2016-10-08] MEDS: traZODone 100 MG Tab PO SCH (17:59)
[2016-10-08] MEDS: FLUoxetine 20 MG Cap PO SCH (17:59)
[2016-10-08] MEDS: hydrOXYzine HCl 25 MG Tab PO PRN (18:06)
[2016-10-08] MEDS: Enoxaparin 40 MG/0.4 ML Syringe SUBCUT SCH (20:26)
[2016-10-09] MEDS: ceFAZolin 2 GM in Premix Bag 1 BAG IV SCH ×3 (00:37→15:32)
[2016-10-09] MEDS: Heparin Sodium 10 Units/ML 5 ML Syringe FLUSH SCH ×3 (00:39→17:07)
[2016-10-09] MEDS: Acetaminophen/HYDROcodone 325-5 MG Tab PO SCH ×4 (01:50→20:22)
[2016-10-09] MEDS: Omeprazole 20 MG Cap.CR PO SCH (06:31)
[2016-10-09] MEDS: Aspirin 325 MG Tab.EC PO SCH ×2 (08:10→20:23)
[2016-10-09] MEDS: Venlafaxine 75 MG Tab PO SCH ×2 (08:10→20:23)
[2016-10-09] MEDS: Loratadine 10 MG Tab PO SCH (08:10)
[2016-10-09] MEDS: Docusate Sodium 100 MG Cap PO SCH ×2 (08:10→20:23)
[2016-10-09] MEDS: Hydrochlorothiazide/Losartan 25-100 MG Tab PO SCH (08:11)
[2016-10-09] MEDS: Metoprolol Tartrate 25 MG Tab PO SCH ×2 (08:11→20:23)
[2016-10-09] MEDS: Gabapentin 300 MG Cap PO SCH ×2 (08:12→20:24)
[2016-10-09] MEDS: Rifampin 150 MG Cap PO SCH ×2 (08:12→20:24)
[2016-10-09] MEDS: Multivitamin Tab PO SCH (08:13)
[2016-10-09] MEDS: Sodium Chloride 0.9% 10 ML Syringe FLUSH PRN (08:14)
[2016-10-09] MEDS: Morphine 15 MG Tab.ER PO SCH ×2 (08:34→20:23)
[2016-10-09] MEDS: hydrOXYzine HCl 25 MG Tab PO PRN ×2 (14:33→18:33)
[2016-10-09] MEDS: FLUoxetine 20 MG Cap PO SCH (18:28)
[2016-10-09] MEDS: traZODone 100 MG Tab PO SCH (18:28)
[2016-10-10] MEDS: ceFAZolin 2 GM in Premix Bag 1 BAG IV SCH ×3 (00:40→16:00)
[2016-10-10] MEDS: Sodium Chloride 0.9% 10 ML Syringe FLUSH PRN ×5 (01:35→16:58)
[2016-10-10] MEDS: Heparin Sodium 10 Units/ML 5 ML Syringe FLUSH SCH ×3 (01:36→16:58)
[2016-10-10] MEDS: Acetaminophen/HYDROcodone 325-5 MG Tab PO SCH ×3 (04:26→20:11)
[2016-10-10] MEDS: Omeprazole 20 MG Cap.CR PO SCH (06:00)
[2016-10-10] MEDS: Sodium Chloride 0.9% 250 ML IV SCH (08:13)
[2016-10-10] MEDS: Loratadine 10 MG Tab PO SCH (08:16)
[2016-10-10] MEDS: Venlafaxine 75 MG Tab PO SCH ×2 (08:17→20:11)
[2016-10-10] MEDS: Metoprolol Tartrate 25 MG Tab PO SCH ×2 (08:17→20:11)
[2016-10-10] MEDS: Aspirin 325 MG Tab.EC PO SCH ×2 (08:17→20:10)
[2016-10-10] MEDS: Hydrochlorothiazide/Losartan 25-100 MG Tab PO SCH (08:17)
[2016-10-10] MEDS: Docusate Sodium 100 MG Cap PO SCH ×2 (08:17→20:10)
[2016-10-10] MEDS: Multivitamin Tab PO SCH (08:18)
[2016-10-10] MEDS: Gabapentin 300 MG Cap PO SCH ×2 (08:18→20:11)
[2016-10-10] MEDS: Rifampin 150 MG Cap PO SCH ×2 (08:18→20:12)
[2016-10-10] MEDS: Morphine 15 MG Tab.ER PO SCH ×2 (08:20→20:11)
--- NOTE | 2016-10-10 08:31 | PCM.PN ---
- General Info Date of Service: 10/10/16 Admission Dx/Problem (Free Text): This a 60-year-old male patient here for infection postop left TKA. Doing well. Uses a knee pain is about 2-3/10. Much improved. He also had a infiltrate of the IV in the right forearm and wrist. That's much improved and doing better. He is very happy with his care here. He denies fevers or chills - Patient Data Vitals - most recent: Last Vital Signs Temp 98.0 F 10/09/16 08:00 Pulse 69 10/10/16 08:17 Resp 18 10/09/16 08:00 BP 125/68 10/10/16 08:17 Pulse Ox 98 10/09/16 08:00 Weight - most recent: 326 lb 11.2 oz I&O - last 24 hours: Intake & Output 10/09/16 10/10/16 10/10/16 22:59 06:59 14:59 Intake Total 560 90 80 Balance 560 90 80 Med Orders - Current: Current Medications Acetaminophen (Tylenol Extra Strength) 1,000 mg PO Q6H PRN PRN Reason: MILD PAIN Last Admin: 09/24/16 08:48 Dose: 1,000 mg Hydrocodone Bitart/Acetaminophen ([place] 325-5 Mg) 2 tab PO Q8H [facility] Last Admin: 10/10/16 04:26 Dose: 2 tab Aspirin (Ecotrin) 325 mg PO BID [facility] Last Admin: 10/10/16 08:17 Dose: 325 mg Docusate Sodium (Colace) 100 mg PO BID [facility] Last Admin: 10/10/16 08:17 Dose: 100 mg Fluoxetine HCl (Prozac) 20 mg PO WITHDINNER [facility] Last Admin: 10/09/16 18:28 Dose: 20 mg Gabapentin (Neurontin) 300 mg PO BID [facility] Last Admin: 10/10/16 08:18 Dose: 300 mg HCTZ/Losartan Potassium (Hyzaar 100-25 Mg) 1 tab PO DAILY [facility] Last Admin: 10/10/16 08:17 Dose: 1 tab Heparin Sodium (Porcine) (Heparin Lock Flush 10 Units/Ml) 50 unit FLUSH Q8H [facility] Last Admin: 10/10/16 01:36 Dose: 50 unit Hydroxyzine HCl (Atarax) 25 mg PO Q4H PRN PRN Reason: PAIN/ITCHING Last Admin: 10/09/16 18:33 Dose: 25 mg Cefazolin Sodium/Dextrose 2 gm (/ Premix) 50 mls @ 100 mls/hr IV Q8H [facility] Stop: 10/29/16 18:00 Last Admin: 10/10/16 08:13 Dose: 100 mls/hr Sodium Chloride (Normal Saline) 250 mls @ 100 mls/hr IV ASDIRECTED [facility] Last Admin: 10/10/16 08:13 Dose: 100 mls/hr Loratadine (Claritin) 10 mg PO DAILY [facility] Last Admin: 10/10/16 08:16 Dose: 10 mg Metoprolol Tartrate (Lopressor) 25 mg PO BID [facility] Last Admin: 10/10/16 08:17 Dose: 25 mg Morphine Sulfate (Ms Contin) 15 mg PO BID [facility] Last Admin: 10/10/16 08:20 Dose: 15 mg Multivitamins/Minerals/Vitamin C (Tab-A-Jorge) 1 tab PO DAILY [facility] Last Admin: 10/10/16 08:18 Dose: 1 tab Omeprazole (Omeprazole) 20 mg PO DAILY@0600 [facility] Last Admin: 10/10/16 06:00 Dose: 20 mg Rifampin (Rifadin) 300 mg PO BID [facility] Last Admin: 10/10/16 08:18 Dose: 300 mg Sodium Chloride (Saline Flush) 10 ml FLUSH ASDIRECTED PRN PRN Reason: Keep Vein Open Last Admin: 10/10/16 08:13 Dose: 10 ml Trazodone HCl (Trazodone) 100 mg PO WITHDINNER [facility] Last Admin: 10/09/16 18:28 Dose: 100 mg Venlafaxine HCl (Effexor) 75 mg PO BID [facility] Last Admin: 10/10/16 08:17 Dose: 75 mg Discontinued Medications Hydrocodone Bitart/Acetaminophen ([place] 325-5 Mg) 2 tab PO Q4H PRN PRN Reason: Pain Last Admin: 10/01/16 17:04 Dose: 2 tab Hydrocodone Bitart/Acetaminophen ([place] 325-5 Mg) 2 tab PO Q6H [facility] Last Admin: 10/05/16 06:30 Dose: 2 tab Hydrocodone Bitart/Acetaminophen ([place] 325-5 Mg) 2 tab PO Q6H [facility] Last Admin: 10/09/16 13:28 Dose: 2 tab Enoxaparin Sodium (Lovenox) 40 mg SUBCUT DAILY [facility] Last Admin: 10/01/16 22:18 Dose: 40 mg Enoxaparin Sodium (Lovenox) 40 mg SUBCUT Q24H [facility] Last Admin: 10/08/16 20:26 Dose: 40 mg Cefazolin Sodium 1 gm/ Sodium (Chloride) 50 mls @ 200 mls/hr IV Q8HR [facility] Loratadine (Claritin) 10 mg PO DAILY PRN PRN Reason: ALLERGIES Last Admin: 10/01/16 21:07 Dose: 10 mg Trazodone HCl (Trazodone) 100 mg PO BEDTIME [facility] Last Admin: 09/26/16 20:42 Dose: 100 mg - Exam General: alert, oriented, cooperative Skin: other (Left knee incision healing nicely without erythema or drainage.) - Problem List & Annotations (1) MRSA (methicillin resistant Staphylococcus aureus) infection SNOMED Code(s): 389279724 Code(s): A49.02 - METHICILLIN RESIS STAPH INFECTION, UNSP SITE Status: Deleted Current Visit: Yes (2) IV infiltration SNOMED Code(s): 38657438 Code(s): T80.1XXA - VASCULAR COMP FOL INFUSN, TRANFS AND THERAPUTC INJECT, INIT Status: Acute Current Visit: Yes Annotation/Comment:: right hand - Problem List Review Problem List Initiated/Reviewed/Updated: Yes - Plan Plan:: 1. Continue current care
[2016-10-10] MEDS: hydrOXYzine HCl 25 MG Tab PO PRN (16:01)
[2016-10-10] MEDS: traZODone 100 MG Tab PO SCH (17:01)
[2016-10-10] MEDS: FLUoxetine 20 MG Cap PO SCH (17:01)
[2016-10-11] MEDS: ceFAZolin 2 GM in Premix Bag 1 BAG IV SCH ×4 (00:01→23:54)
[2016-10-11] MEDS: Heparin Sodium 10 Units/ML 5 ML Syringe FLUSH SCH ×3 (00:02→18:22)
[2016-10-11] MEDS: Acetaminophen/HYDROcodone 325-5 MG Tab PO SCH ×3 (05:18→20:33)
[2016-10-11] MEDS: Omeprazole 20 MG Cap.CR PO SCH (05:19)
[2016-10-11] MEDS: Sodium Chloride 0.9% 10 ML Syringe FLUSH PRN ×2 (07:43→18:21)
[2016-10-11] MEDS: Morphine 15 MG Tab.ER PO SCH ×2 (08:21→20:32)
[2016-10-11] MEDS: Loratadine 10 MG Tab PO SCH (08:21)
[2016-10-11] MEDS: Docusate Sodium 100 MG Cap PO SCH ×2 (08:21→20:31)
[2016-10-11] MEDS: Aspirin 325 MG Tab.EC PO SCH ×2 (08:22→20:31)
[2016-10-11] MEDS: Hydrochlorothiazide/Losartan 25-100 MG Tab PO SCH (08:22)
[2016-10-11] MEDS: Venlafaxine 75 MG Tab PO SCH ×2 (08:22→20:31)
[2016-10-11] MEDS: Metoprolol Tartrate 25 MG Tab PO SCH ×2 (08:22→20:32)
[2016-10-11] MEDS: Gabapentin 300 MG Cap PO SCH ×2 (08:23→20:33)
[2016-10-11] MEDS: Rifampin 150 MG Cap PO SCH ×2 (08:23→20:34)
[2016-10-11] MEDS: Multivitamin Tab PO SCH (08:23)
[2016-10-11] MEDS: FLUoxetine 20 MG Cap PO SCH (18:25)
[2016-10-11] MEDS: traZODone 100 MG Tab PO SCH (18:27)
[2016-10-11] MEDS: hydrOXYzine HCl 25 MG Tab PO PRN (18:35)
[2016-10-11] MEDS: Sodium Chloride 0.9% 250 ML IV SCH (23:54)
[2016-10-12] MEDS: Heparin Sodium 10 Units/ML 5 ML Syringe FLUSH SCH ×4 (00:02→18:29)
[2016-10-12] MEDS: Acetaminophen/HYDROcodone 325-5 MG Tab PO SCH ×3 (06:00→20:37)
[2016-10-12] MEDS: Omeprazole 20 MG Cap.CR PO SCH (06:00)
[2016-10-12] MEDS: Sodium Chloride 0.9% 10 ML Syringe FLUSH PRN ×2 (08:33→18:37)
[2016-10-12] MEDS: Sodium Chloride 0.9% 250 ML IV SCH (08:36)
[2016-10-12] MEDS: ceFAZolin 2 GM in Premix Bag 1 BAG IV SCH ×2 (08:37→16:33)
[2016-10-12] MEDS: Loratadine 10 MG Tab PO SCH (09:01)
[2016-10-12] MEDS: Docusate Sodium 100 MG Cap PO SCH ×2 (09:02→20:36)
[2016-10-12] MEDS: Gabapentin 300 MG Cap PO SCH ×2 (09:02→20:36)
[2016-10-12] MEDS: Aspirin 325 MG Tab.EC PO SCH ×2 (09:02→20:36)
[2016-10-12] MEDS: Morphine 15 MG Tab.ER PO SCH ×2 (09:02→20:36)
[2016-10-12] MEDS: Venlafaxine 75 MG Tab PO SCH ×2 (09:02→20:36)
[2016-10-12] MEDS: Multivitamin Tab PO SCH (09:02)
[2016-10-12] MEDS: Hydrochlorothiazide/Losartan 25-100 MG Tab PO SCH (09:02)
[2016-10-12] MEDS: Metoprolol Tartrate 25 MG Tab PO SCH ×2 (09:02→20:40)
[2016-10-12] MEDS: Rifampin 150 MG Cap PO SCH ×2 (09:02→20:36)
[2016-10-12] MEDS ORDERED: Magnesium Hydroxide 400 MG/5 ML Susp 30 ML Cup PO PRN (18:10)
[2016-10-12] MEDS: traZODone 100 MG Tab PO SCH (18:30)
[2016-10-12] MEDS: FLUoxetine 20 MG Cap PO SCH (18:31)
[2016-10-12] MEDS: hydrOXYzine HCl 25 MG Tab PO PRN (18:35)
[2016-10-13] MEDS: ceFAZolin 2 GM in Premix Bag 1 BAG IV SCH ×4 (00:58→23:40)
[2016-10-13] MEDS: Heparin Sodium 10 Units/ML 5 ML Syringe FLUSH SCH ×4 (01:07→17:33)
[2016-10-13] MEDS: Sodium Chloride 0.9% 10 ML Syringe FLUSH PRN ×4 (04:19→23:36)
[2016-10-13] MEDS: Omeprazole 20 MG Cap.CR PO SCH (05:23)
[2016-10-13] MEDS: Acetaminophen/HYDROcodone 325-5 MG Tab PO SCH (05:24)
[2016-10-13] MEDS: Sodium Chloride 0.9% 250 ML IV SCH (08:03)
[2016-10-13] MEDS: Hydrochlorothiazide/Losartan 25-100 MG Tab PO SCH (08:34)
[2016-10-13] MEDS: Docusate Sodium 100 MG Cap PO SCH ×2 (08:34→20:20)
[2016-10-13] MEDS: Loratadine 10 MG Tab PO SCH (08:34)
[2016-10-13] MEDS: Metoprolol Tartrate 25 MG Tab PO SCH ×2 (08:35→20:21)
[2016-10-13] MEDS: Aspirin 325 MG Tab.EC PO SCH ×2 (08:35→20:21)
[2016-10-13] MEDS: Venlafaxine 75 MG Tab PO SCH ×2 (08:35→20:21)
[2016-10-13] MEDS: Gabapentin 300 MG Cap PO SCH ×2 (08:38→20:21)
[2016-10-13] MEDS: Rifampin 150 MG Cap PO SCH ×2 (08:38→20:21)
[2016-10-13] MEDS: Multivitamin Tab PO SCH (08:39)
--- NOTE | 2016-10-13 09:06 | PCM.PN ---
- General Info Date of Service: 10/13/16 Admission Dx/Problem (Free Text): Patient doing well without complaints. Left knee pain is very minimal. He is on MS Contin twice a day and scheduled oxycodone. He would like to start weaning off this medication. - Patient Data Vitals - most recent: Last Vital Signs Temp 97.5 F 10/13/16 08:30 Pulse 79 10/13/16 08:35 Resp 20 10/13/16 08:30 BP 131/75 10/13/16 08:35 Pulse Ox 100 10/13/16 08:30 Weight - most recent: 326 lb 11.2 oz I&O - last 24 hours: Intake & Output 10/12/16 10/13/16 10/13/16 22:59 06:59 14:59 Intake Total 91 80 Balance 91 80 Lab Results last 24 hrs: Laboratory Results - last 24 hr 10/13/16 10/13/16 Range/Units 04:25 04:25 WBC 7.1 (4.5-12.0) X10-3/uL RBC 2.69 L (4.30-5.75) x10(6)uL Hgb 8.4 L (11.5-15.5) g/dL Hct 25.4 L (30.0-51.3) % MCV 94.2 (80-96) fL MCH 31.1 (27.7-33.6) pg MCHC 33.0 (32.2-35.4) g/dL RDW 13.4 (11.5-15.5) % Plt Count 367 (125-369) X10(3)uL MPV 7.1 L (7.4-10.4) fL Neut % (Auto) 59.7 (46-82) % Lymph % (Auto) 25.4 (13-37) % Pitkin % (Auto) 11.4 (4-12) % Eos % (Auto) 3 (1.0-5.0) % Baso % (Auto) 0 (0-2) % Neut # (Auto) 4.3 (1.6-8.3) # Lymph # (Auto) 1.8 (0.6-5.0) # Pitkin # (Auto) 0.8 (0.0-1.3) # Eos # (Auto) 0.2 (0.0-0.8) # Baso # (Auto) 0.0 (0.0-0.2) # Creatinine 0.9 (0.6-1.3) mg/dL Est Cr Clr Drug Dosing 80.95 mL/min Estimated GFR (MDRD) > 60 (>60) Total Bilirubin 0.2 (0.1-1.3) mg/dL Direct Bilirubin < 0.1 L (0.1-0.2) mg/dL AST 11 D (5-27) IU/L ALT 8 L D (14-26) IU/L Alkaline Phosphatase 81 (56-112) IU/L Total Protein 6.7 (6.0-8.0) g/dL Albumin 2.7 L (3.2-4.6) g/dL Med Orders - Current: Current Medications Acetaminophen (Tylenol Extra Strength) 1,000 mg PO Q6H PRN PRN Reason: MILD PAIN Last Admin: 09/24/16 08:48 Dose: 1,000 mg Hydrocodone Bitart/Acetaminophen (Poyntelle 325-5 Mg) 2 tab PO Q8H [facility] Last Admin: 10/13/16 05:24 Dose: 2 tab Aspirin (Ecotrin) 325 mg PO BID [facility] Last Admin: 10/13/16 08:35 Dose: 325 mg Docusate Sodium (Colace) 100 mg PO BID [facility] Last Admin: 10/13/16 08:34 Dose: 100 mg Fluoxetine HCl (Prozac) 20 mg PO WITHDINNER [facility] Last Admin: 10/12/16 18:31 Dose: 20 mg Gabapentin (Neurontin) 300 mg PO BID [facility] Last Admin: 10/13/16 08:38 Dose: 300 mg HCTZ/Losartan Potassium (Hyzaar 100-25 Mg) 1 tab PO DAILY [facility] Last Admin: 10/13/16 08:34 Dose: 1 tab Heparin Sodium (Porcine) (Heparin Lock Flush 10 Units/Ml) 50 unit FLUSH Q8H [facility] Last Admin: 10/13/16 08:42 Dose: 50 unit Hydroxyzine HCl (Atarax) 25 mg PO Q4H PRN PRN Reason: PAIN/ITCHING Last Admin: 10/12/16 18:35 Dose: 25 mg Cefazolin Sodium/Dextrose 2 gm (/ Premix) 50 mls @ 100 mls/hr IV Q8H [facility] Stop: 10/29/16 18:00 Last Admin: 10/13/16 08:04 Dose: 100 mls/hr Sodium Chloride (Normal Saline) 250 mls @ 100 mls/hr IV ASDIRECTED [facility] Last Admin: 10/13/16 08:03 Dose: 100 mls/hr Loratadine (Claritin) 10 mg PO DAILY [facility] Last Admin: 10/13/16 08:34 Dose: 10 mg Magnesium Hydroxide (Milk Of Magnesia) 30 ml PO DAILY PRN PRN Reason: Constipation Last Admin: 10/12/16 18:31 Dose: 30 ml Metoprolol Tartrate (Lopressor) 25 mg PO BID [facility] Last Admin: 10/13/16 08:35 Dose: 25 mg Morphine Sulfate (Ms Contin) 15 mg PO BID [facility] Last Admin: 10/12/16 20:36 Dose: Not Given Multivitamins/Minerals/Vitamin C (Tab-A-Jorge) 1 tab PO DAILY [facility] Last Admin: 10/13/16 08:39 Dose: 1 tab Omeprazole (Omeprazole) 20 mg PO DAILY@0600 [facility] Last Admin: 10/13/16 05:23 Dose: 20 mg Rifampin (Rifadin) 300 mg PO BID [facility] Last Admin: 10/13/16 08:38 Dose: 300 mg Sodium Chloride (Saline Flush) 10 ml FLUSH ASDIRECTED PRN PRN Reason: Keep Vein Open Last Admin: 10/13/16 07:56 Dose: 10 ml Trazodone HCl (Trazodone) 100 mg PO WITHDINNER [facility] Last Admin: 10/12/16 18:30 Dose: 100 mg Venlafaxine HCl (Effexor) 75 mg PO BID [facility] Last Admin: 10/13/16 08:35 Dose: 75 mg Discontinued Medications Hydrocodone Bitart/Acetaminophen (Poyntelle 325-5 Mg) 2 tab PO Q4H PRN PRN Reason: Pain Last Admin: 10/01/16 17:04 Dose: 2 tab Hydrocodone Bitart/Acetaminophen (Poyntelle 325-5 Mg) 2 tab PO Q6H [facility] Last Admin: 10/05/16 06:30 Dose: 2 tab Hydrocodone Bitart/Acetaminophen (Poyntelle 325-5 Mg) 2 tab PO Q6H [facility] Last Admin: 10/09/16 13:28 Dose: 2 tab Enoxaparin Sodium (Lovenox) 40 mg SUBCUT DAILY [facility] Last Admin: 10/01/16 22:18 Dose: 40 mg Enoxaparin Sodium (Lovenox) 40 mg SUBCUT Q24H [facility] Last Admin: 10/08/16 20:26 Dose: 40 mg Cefazolin Sodium 1 gm/ Sodium (Chloride) 50 mls @ 200 mls/hr IV Q8HR [facility] Loratadine (Claritin) 10 mg PO DAILY PRN PRN Reason: ALLERGIES Last Admin: 10/01/16 21:07 Dose: 10 mg Trazodone HCl (Trazodone) 100 mg PO BEDTIME [facility] Last Admin: 09/26/16 20:42 Dose: 100 mg - Exam General: alert, oriented, cooperative Skin: other (Wound is healing nicely without erythema or drainage.) - Problem List & Annotations (1) MRSA (methicillin resistant Staphylococcus aureus) infection SNOMED Code(s): 522646377 Code(s): A49.02 - METHICILLIN RESIS STAPH INFECTION, UNSP SITE Status: Deleted Current Visit: Yes (2) IV infiltration SNOMED Code(s): 17321293 Code(s): T80.1XXA - VASCULAR COMP FOL INFUSN, TRANFS AND THERAPUTC INJECT, INIT Status: Acute Current Visit: Yes Annotation/Comment:: right hand - Problem List Review Problem List Initiated/Reviewed/Updated: Yes - My Orders Last 24 Hours: My Active Orders 10/12/16 18:10 Magnesium Hydroxide [Milk of Magnesia] 30 ml PO DAILY PRN - Plan Plan:: 1. DC MS Contin 2. DC scheduled Poyntelle and make it when necessary. 3. I discussed withdrawal with this patient and if he has symptoms of withdrawal that he cannot take he'll contact the nurse and will try to use hydrocodone for that issue.
[2016-10-13] MEDS: Morphine 15 MG Tab.ER PO SCH (10:28)
[2016-10-13] MEDS: Acetaminophen/HYDROcodone 325-5 MG Tab PO PRN (17:14)
[2016-10-13] MEDS: traZODone 100 MG Tab PO SCH (18:19)
[2016-10-13] MEDS: FLUoxetine 20 MG Cap PO SCH (18:19)
[2016-10-13] MEDS: hydrOXYzine HCl 25 MG Tab PO PRN (18:22)
[2016-10-14] MEDS: Heparin Sodium 10 Units/ML 5 ML Syringe FLUSH SCH ×3 (00:29→17:30)
[2016-10-14] MEDS: Acetaminophen/HYDROcodone 325-5 MG Tab PO PRN ×2 (00:29→18:05)
[2016-10-14] MEDS: Sodium Chloride 0.9% 10 ML Syringe FLUSH PRN ×2 (00:41→07:35)
[2016-10-14] MEDS: Omeprazole 20 MG Cap.CR PO SCH (05:50)
[2016-10-14] MEDS: ceFAZolin 2 GM in Premix Bag 1 BAG IV SCH ×2 (07:36→16:04)
[2016-10-14] MEDS: Sodium Chloride 0.9% 250 ML IV SCH (07:37)
[2016-10-14] MEDS: Docusate Sodium 100 MG Cap PO SCH ×2 (08:24→19:59)
[2016-10-14] MEDS: Loratadine 10 MG Tab PO SCH (08:24)
[2016-10-14] MEDS: Venlafaxine 75 MG Tab PO SCH ×2 (08:25→20:00)
[2016-10-14] MEDS: Hydrochlorothiazide/Losartan 25-100 MG Tab PO SCH (08:25)
[2016-10-14] MEDS: Metoprolol Tartrate 25 MG Tab PO SCH ×2 (08:25→20:00)
[2016-10-14] MEDS: Aspirin 325 MG Tab.EC PO SCH ×2 (08:25→20:00)
[2016-10-14] MEDS: Rifampin 150 MG Cap PO SCH ×2 (08:26→20:01)
[2016-10-14] MEDS: Multivitamin Tab PO SCH (08:26)
[2016-10-14] MEDS: Gabapentin 300 MG Cap PO SCH ×2 (08:26→20:00)
[2016-10-14] MEDS: traZODone 100 MG Tab PO SCH (18:51)
[2016-10-14] MEDS: hydrOXYzine HCl 25 MG Tab PO PRN (18:52)
[2016-10-14] MEDS: FLUoxetine 20 MG Cap PO SCH (18:52)
[2016-10-15] MEDS: Acetaminophen/HYDROcodone 325-5 MG Tab PO PRN ×5 (00:23→22:21)
[2016-10-15] MEDS: ceFAZolin 2 GM in Premix Bag 1 BAG IV SCH ×3 (00:28→18:24)
[2016-10-15] MEDS: Heparin Sodium 10 Units/ML 5 ML Syringe FLUSH SCH ×3 (02:08→19:47)
[2016-10-15] MEDS: Omeprazole 20 MG Cap.CR PO SCH (05:35)
[2016-10-15] MEDS: Multivitamin Tab PO SCH (09:44)
[2016-10-15] MEDS: Aspirin 325 MG Tab.EC PO SCH ×2 (09:44→20:39)
[2016-10-15] MEDS: Hydrochlorothiazide/Losartan 25-100 MG Tab PO SCH (09:44)
[2016-10-15] MEDS: Docusate Sodium 100 MG Cap PO SCH ×2 (09:44→20:38)
[2016-10-15] MEDS: Gabapentin 300 MG Cap PO SCH ×2 (09:45→20:39)
[2016-10-15] MEDS: Loratadine 10 MG Tab PO SCH (09:45)
[2016-10-15] MEDS: Venlafaxine 75 MG Tab PO SCH ×2 (09:45→20:39)
[2016-10-15] MEDS: Rifampin 150 MG Cap PO SCH (09:45)
[2016-10-15] MEDS: Metoprolol Tartrate 25 MG Tab PO SCH ×2 (09:54→20:39)
[2016-10-15] MEDS: FLUoxetine 20 MG Cap PO SCH (18:31)
[2016-10-15] MEDS: hydrOXYzine HCl 25 MG Tab PO PRN (18:31)
[2016-10-15] MEDS: traZODone 100 MG Tab PO SCH (18:31)
[2016-10-15] MEDS: Rifampin 300 MG Cap PO SCH (20:39)
[2016-10-16] MEDS: ceFAZolin 2 GM in Premix Bag 1 BAG IV SCH ×3 (02:31→18:57)
[2016-10-16] MEDS: Heparin Sodium 10 Units/ML 5 ML Syringe FLUSH SCH ×4 (03:20→20:07)
[2016-10-16] MEDS: Omeprazole 20 MG Cap.CR PO SCH (06:12)
[2016-10-16] MEDS: Aspirin 325 MG Tab.EC PO SCH ×2 (08:42→20:20)
[2016-10-16] MEDS: Loratadine 10 MG Tab PO SCH (08:42)
[2016-10-16] MEDS: Docusate Sodium 100 MG Cap PO SCH ×2 (08:42→20:20)
[2016-10-16] MEDS: Venlafaxine 75 MG Tab PO SCH ×2 (08:43→20:20)
[2016-10-16] MEDS: Rifampin 300 MG Cap PO SCH ×2 (08:43→20:20)
[2016-10-16] MEDS: Hydrochlorothiazide/Losartan 25-100 MG Tab PO SCH (08:43)
[2016-10-16] MEDS: Multivitamin Tab PO SCH (08:43)
[2016-10-16] MEDS: Gabapentin 300 MG Cap PO SCH ×2 (08:43→20:20)
[2016-10-16] MEDS: Metoprolol Tartrate 25 MG Tab PO SCH ×2 (08:45→20:20)
[2016-10-16] MEDS: Acetaminophen/HYDROcodone 325-5 MG Tab PO PRN ×2 (08:46→18:56)
[2016-10-16] MEDS: traZODone 100 MG Tab PO SCH (18:57)
[2016-10-16] MEDS: hydrOXYzine HCl 25 MG Tab PO PRN (18:57)
[2016-10-16] MEDS: FLUoxetine 20 MG Cap PO SCH (18:57)
[2016-10-16] MEDS: Sodium Chloride 0.9% 10 ML Syringe FLUSH PRN (20:06)
[2016-10-17] MEDS: ceFAZolin 2 GM in Premix Bag 1 BAG IV SCH ×3 (02:10→17:57)
[2016-10-17] MEDS: Heparin Sodium 10 Units/ML 5 ML Syringe FLUSH SCH ×3 (05:33→18:40)
[2016-10-17] MEDS: Pantoprazole 40 MG Tab.CR PO SCH (05:39)
[2016-10-17] MEDS: Acetaminophen/HYDROcodone 325-5 MG Tab PO PRN ×3 (07:44→21:41)
[2016-10-17] MEDS: Hydrochlorothiazide/Losartan 25-100 MG Tab PO SCH (08:58)
[2016-10-17] MEDS: Docusate Sodium 100 MG Cap PO SCH ×2 (08:58→21:20)
[2016-10-17] MEDS: Loratadine 10 MG Tab PO SCH (08:58)
[2016-10-17] MEDS: Metoprolol Tartrate 25 MG Tab PO SCH ×2 (08:58→21:21)
[2016-10-17] MEDS: Aspirin 325 MG Tab.EC PO SCH ×2 (08:58→21:20)
[2016-10-17] MEDS: Gabapentin 300 MG Cap PO SCH ×2 (08:58→21:22)
[2016-10-17] MEDS: Rifampin 300 MG Cap PO SCH ×2 (08:58→21:23)
[2016-10-17] MEDS: Multivitamin Tab PO SCH (08:58)
[2016-10-17] MEDS: Venlafaxine 75 MG Tab PO SCH ×2 (08:58→21:25)
[2016-10-17] MEDS: Sodium Chloride 0.9% 10 ML Syringe FLUSH PRN ×4 (10:32→18:55)
[2016-10-17] MEDS: traZODone 100 MG Tab PO SCH (17:57)
[2016-10-17] MEDS: FLUoxetine 20 MG Cap PO SCH (17:58)
[2016-10-17] MEDS: hydrOXYzine HCl 25 MG Tab PO PRN (18:05)
[2016-10-18] MEDS: ceFAZolin 2 GM in Premix Bag 1 BAG IV SCH ×3 (02:28→18:42)
[2016-10-18] MEDS: Heparin Sodium 10 Units/ML 5 ML Syringe FLUSH SCH ×3 (02:33→19:36)
[2016-10-18] MEDS: Pantoprazole 40 MG Tab.CR PO SCH (05:23)
[2016-10-18] MEDS: Acetaminophen/HYDROcodone 325-5 MG Tab PO PRN ×4 (05:30→23:24)
[2016-10-18] MEDS: Aspirin 325 MG Tab.EC PO SCH ×2 (08:23→20:39)
[2016-10-18] MEDS: Metoprolol Tartrate 25 MG Tab PO SCH ×2 (08:23→20:43)
[2016-10-18] MEDS: Loratadine 10 MG Tab PO SCH (08:23)
[2016-10-18] MEDS: Docusate Sodium 100 MG Cap PO SCH ×3 (08:23→20:45)
[2016-10-18] MEDS: Venlafaxine 75 MG Tab PO SCH ×2 (08:23→20:39)
[2016-10-18] MEDS: Gabapentin 300 MG Cap PO SCH ×2 (08:23→20:41)
[2016-10-18] MEDS: Hydrochlorothiazide/Losartan 25-100 MG Tab PO SCH (08:23)
[2016-10-18] MEDS: Rifampin 300 MG Cap PO SCH ×2 (08:24→20:42)
[2016-10-18] MEDS: Multivitamin Tab PO SCH (08:24)
[2016-10-18] MEDS: Sodium Chloride 0.9% 10 ML Syringe FLUSH PRN ×2 (11:26→19:35)
[2016-10-18] MEDS ORDERED: Aluminum Hydroxide/Magnesium Hydroxide Susp 30 ML Cup PO PRN (14:53)
[2016-10-18] MEDS: traZODone 100 MG Tab PO SCH (18:32)
[2016-10-18] MEDS: FLUoxetine 20 MG Cap PO SCH (18:32)
[2016-10-18] MEDS: hydrOXYzine HCl 25 MG Tab PO PRN (18:37)
[2016-10-19] MEDS: Sodium Chloride 0.9% 10 ML Syringe FLUSH PRN ×3 (01:46→18:56)
[2016-10-19] MEDS: Sodium Chloride 0.9% 250 ML IV SCH (01:48)
[2016-10-19] MEDS: ceFAZolin 2 GM in Premix Bag 1 BAG IV SCH ×3 (01:48→17:55)
[2016-10-19] MEDS: Heparin Sodium 10 Units/ML 5 ML Syringe FLUSH SCH ×3 (02:53→18:56)
[2016-10-19] MEDS: Pantoprazole 40 MG Tab.CR PO SCH (06:13)
[2016-10-19] MEDS: Acetaminophen/HYDROcodone 325-5 MG Tab PO PRN ×2 (07:59→21:46)
[2016-10-19] MEDS: Loratadine 10 MG Tab PO SCH (08:04)
[2016-10-19] MEDS: Docusate Sodium 100 MG Cap PO SCH ×2 (08:04→21:46)
[2016-10-19] MEDS: Aspirin 325 MG Tab.EC PO SCH ×2 (08:05→21:46)
[2016-10-19] MEDS: Venlafaxine 75 MG Tab PO SCH ×2 (08:06→21:46)
[2016-10-19] MEDS: Metoprolol Tartrate 25 MG Tab PO SCH ×2 (08:07→21:50)
[2016-10-19] MEDS: Hydrochlorothiazide/Losartan 25-100 MG Tab PO SCH (08:07)
[2016-10-19] MEDS: Gabapentin 300 MG Cap PO SCH ×2 (08:08→21:46)
[2016-10-19] MEDS: Rifampin 300 MG Cap PO SCH ×2 (08:08→21:46)
[2016-10-19] MEDS: Multivitamin Tab PO SCH (08:09)
[2016-10-19] MEDS: Acetaminophen 500 MG Tab PO PRN (16:52)
[2016-10-19] MEDS: hydrOXYzine HCl 25 MG Tab PO PRN (17:54)
[2016-10-19] MEDS: traZODone 100 MG Tab PO SCH (17:54)
[2016-10-19] MEDS: FLUoxetine 20 MG Cap PO SCH (17:55)
[2016-10-20] MEDS: Sodium Chloride 0.9% 10 ML Syringe FLUSH PRN ×5 (02:32→18:14)
[2016-10-20] MEDS: hydrOXYzine HCl 25 MG Tab PO PRN (02:32)
[2016-10-20] MEDS: Acetaminophen 500 MG Tab PO PRN (02:32)
[2016-10-20] MEDS: ceFAZolin 2 GM in Premix Bag 1 BAG IV SCH ×3 (02:32→17:21)
[2016-10-20] MEDS: Heparin Sodium 10 Units/ML 5 ML Syringe FLUSH SCH ×3 (03:17→18:14)
[2016-10-20] MEDS: Pantoprazole 40 MG Tab.CR PO SCH (06:19)
[2016-10-20] MEDS: Metoprolol Tartrate 25 MG Tab PO SCH ×2 (08:07→20:54)
[2016-10-20] MEDS: Rifampin 300 MG Cap PO SCH ×2 (08:07→20:56)
[2016-10-20] MEDS: Multivitamin Tab PO SCH (08:07)
[2016-10-20] MEDS: Venlafaxine 75 MG Tab PO SCH ×2 (08:07→20:53)
[2016-10-20] MEDS: Hydrochlorothiazide/Losartan 25-100 MG Tab PO SCH (08:07)
[2016-10-20] MEDS: Docusate Sodium 100 MG Cap PO SCH ×2 (08:07→20:51)
[2016-10-20] MEDS: Aspirin 325 MG Tab.EC PO SCH ×2 (08:07→20:53)
[2016-10-20] MEDS: Gabapentin 300 MG Cap PO SCH ×2 (08:07→20:55)
[2016-10-20] MEDS: Loratadine 10 MG Tab PO SCH (08:07)
[2016-10-20] MEDS: traZODone 100 MG Tab PO SCH (17:22)
[2016-10-20] MEDS: FLUoxetine 20 MG Cap PO SCH (17:22)
[2016-10-20] MEDS: Acetaminophen/HYDROcodone 325-5 MG Tab PO PRN ×2 (18:55→23:02)
[2016-10-21] MEDS: ceFAZolin 2 GM in Premix Bag 1 BAG IV SCH ×3 (01:13→18:21)
[2016-10-21] MEDS: Heparin Sodium 10 Units/ML 5 ML Syringe FLUSH SCH ×3 (02:03→19:32)
[2016-10-21] MEDS: Pantoprazole 40 MG Tab.CR PO SCH (05:44)
[2016-10-21] MEDS: Docusate Sodium 100 MG Cap PO SCH ×2 (08:15→21:14)
[2016-10-21] MEDS: Gabapentin 300 MG Cap PO SCH ×2 (08:15→21:15)
[2016-10-21] MEDS: Acetaminophen/HYDROcodone 325-5 MG Tab PO PRN ×2 (08:15→18:38)
[2016-10-21] MEDS: Aspirin 325 MG Tab.EC PO SCH ×2 (08:15→21:14)
[2016-10-21] MEDS: Hydrochlorothiazide/Losartan 25-100 MG Tab PO SCH (08:15)
[2016-10-21] MEDS: Multivitamin Tab PO SCH (08:15)
[2016-10-21] MEDS: Metoprolol Tartrate 25 MG Tab PO SCH ×2 (08:15→21:15)
[2016-10-21] MEDS: Venlafaxine 75 MG Tab PO SCH ×2 (08:15→21:14)
[2016-10-21] MEDS: Rifampin 300 MG Cap PO SCH ×2 (08:15→21:15)
[2016-10-21] MEDS: Loratadine 10 MG Tab PO SCH (08:15)
[2016-10-21] MEDS: Sodium Chloride 0.9% 10 ML Syringe FLUSH PRN ×3 (09:52→15:29)
[2016-10-21] MEDS: Sodium Chloride 0.9% 250 ML IV SCH (09:52)
--- NOTE | 2016-10-21 10:29 | PN ---
DATE SEEN: 10/21/2016 CHIEF COMPLAINT: Frequency of urination. HISTORY OF PRESENT ILLNESS: This is a 60-year-old male, who is here for swing bed and antibiotic treatment after left TKA. He had some complications with septic arthritis around that knee. He is doing well today, however, complains of frequency of urination, nocturia, urgency, but no dysuria. Symptoms have lasted for several months. REVIEW OF SYSTEMS: No fever or chills. No chest pain or shortness of breath. ALLERGIES: Reviewed. MEDICATIONS: Reviewed. PHYSICAL EXAMINATION: GENERAL: Not in any cardiopulmonary distress. VITAL SIGNS: Blood pressure today 133/72, pulse is 88, and temperature 98.1. EXTREMITIES: Left knee, no obvious signs of swelling or infection. Gait, using a walker. MENTAL STATUS: Alert. IMPRESSION: 1. BPH with symptoms. 2. Status post left total knee arthroplasty. 3. Septic arthritis, currently on antibiotic therapy. PLAN: We will start the patient on finasteride 5 mg at bedtime and 0.4 mg of Flomax. Continue current treatment plan with IV antibiotics and physical therapy. /[id number] NEHA/AURELIA
[2016-10-21] MEDS: FLUoxetine 20 MG Cap PO SCH (18:22)
[2016-10-21] MEDS: traZODone 100 MG Tab PO SCH (18:22)
[2016-10-21] MEDS: hydrOXYzine HCl 25 MG Tab PO PRN (18:38)
[2016-10-21] MEDS: Tamsulosin 0.4 MG Cap.ER PO SCH (21:14)
[2016-10-21] MEDS: Finasteride 5 MG Tab PO SCH (21:14)
[2016-10-22] MEDS: ceFAZolin 2 GM in Premix Bag 1 BAG IV SCH ×3 (01:33→18:23)
[2016-10-22] MEDS: Heparin Sodium 10 Units/ML 5 ML Syringe FLUSH SCH ×3 (04:22→19:28)
[2016-10-22] MEDS: Pantoprazole 40 MG Tab.CR PO SCH (05:45)
[2016-10-22] MEDS: Acetaminophen 500 MG Tab PO PRN (06:36)
[2016-10-22] MEDS: Metoprolol Tartrate 25 MG Tab PO SCH ×2 (08:35→20:29)
[2016-10-22] MEDS: Docusate Sodium 100 MG Cap PO SCH ×2 (08:35→20:29)
[2016-10-22] MEDS: Hydrochlorothiazide/Losartan 25-100 MG Tab PO SCH (08:35)
[2016-10-22] MEDS: Aspirin 325 MG Tab.EC PO SCH ×2 (08:35→20:29)
[2016-10-22] MEDS: Venlafaxine 75 MG Tab PO SCH ×2 (08:35→20:29)
[2016-10-22] MEDS: Loratadine 10 MG Tab PO SCH (08:35)
[2016-10-22] MEDS: Rifampin 300 MG Cap PO SCH ×2 (08:36→20:30)
[2016-10-22] MEDS: Gabapentin 300 MG Cap PO SCH ×2 (08:36→20:30)
[2016-10-22] MEDS: Acetaminophen/HYDROcodone 325-5 MG Tab PO PRN ×2 (08:36→20:28)
[2016-10-22] MEDS: Multivitamin Tab PO SCH (08:36)
[2016-10-22] MEDS: Sodium Chloride 0.9% 10 ML Syringe FLUSH PRN (11:07)
[2016-10-22] MEDS: traZODone 100 MG Tab PO SCH (18:23)
[2016-10-22] MEDS: FLUoxetine 20 MG Cap PO SCH (18:23)
[2016-10-22] MEDS ORDERED: traZODone 50 MG Tab ONE (18:28)
[2016-10-22] MEDS: Tamsulosin 0.4 MG Cap.ER PO SCH (20:28)
[2016-10-22] MEDS: Finasteride 5 MG Tab PO SCH (20:30)
[2016-10-23] MEDS: ceFAZolin 2 GM in Premix Bag 1 BAG IV SCH ×3 (02:38→18:22)
[2016-10-23] MEDS: Heparin Sodium 10 Units/ML 5 ML Syringe FLUSH SCH ×3 (03:08→19:38)
[2016-10-23] MEDS: Pantoprazole 40 MG Tab.CR PO SCH (05:13)
[2016-10-23] MEDS: Venlafaxine 75 MG Tab PO SCH ×2 (09:19→20:27)
[2016-10-23] MEDS: Docusate Sodium 100 MG Cap PO SCH ×2 (09:19→20:26)
[2016-10-23] MEDS: Aspirin 325 MG Tab.EC PO SCH ×2 (09:19→20:26)
[2016-10-23] MEDS: Metoprolol Tartrate 25 MG Tab PO SCH ×2 (09:19→20:29)
[2016-10-23] MEDS: Hydrochlorothiazide/Losartan 25-100 MG Tab PO SCH (09:19)
[2016-10-23] MEDS: Loratadine 10 MG Tab PO SCH (09:19)
[2016-10-23] MEDS: Multivitamin Tab PO SCH (09:20)
[2016-10-23] MEDS: Rifampin 300 MG Cap PO SCH ×2 (09:20→20:29)
[2016-10-23] MEDS: Gabapentin 300 MG Cap PO SCH ×2 (09:20→20:28)
[2016-10-23] MEDS: Sodium Chloride 0.9% 250 ML IV SCH (10:29)
[2016-10-23] MEDS: Celecoxib 200 MG Cap PO SCH (11:18)
[2016-10-23] MEDS: Acetaminophen 500 MG Tab PO PRN ×2 (12:15→20:34)
[2016-10-23] MEDS: traZODone 100 MG Tab PO SCH (18:22)
[2016-10-23] MEDS: FLUoxetine 20 MG Cap PO SCH (18:22)
[2016-10-23] MEDS: Tamsulosin 0.4 MG Cap.ER PO SCH (20:26)
[2016-10-23] MEDS: Finasteride 5 MG Tab PO SCH (20:28)
[2016-10-24] MEDS: ceFAZolin 2 GM in Premix Bag 1 BAG IV SCH ×3 (02:12→17:49)
[2016-10-24] MEDS: Heparin Sodium 10 Units/ML 5 ML Syringe FLUSH SCH ×3 (03:05→18:40)
[2016-10-24] MEDS: Pantoprazole 40 MG Tab.CR PO SCH (06:09)
[2016-10-24] MEDS: Acetaminophen 500 MG Tab PO PRN ×2 (06:43→18:50)
[2016-10-24] MEDS: Celecoxib 200 MG Cap PO SCH (08:36)
[2016-10-24] MEDS: Aspirin 325 MG Tab.EC PO SCH ×2 (08:36→20:56)
[2016-10-24] MEDS: Docusate Sodium 100 MG Cap PO SCH ×2 (08:36→20:56)
[2016-10-24] MEDS: Venlafaxine 75 MG Tab PO SCH ×2 (08:36→20:54)
[2016-10-24] MEDS: Rifampin 300 MG Cap PO SCH ×2 (08:37→20:55)
[2016-10-24] MEDS: Metoprolol Tartrate 25 MG Tab PO SCH ×2 (08:37→20:57)
[2016-10-24] MEDS: Multivitamin Tab PO SCH (08:37)
[2016-10-24] MEDS: Hydrochlorothiazide/Losartan 25-100 MG Tab PO SCH (08:37)
[2016-10-24] MEDS: Gabapentin 300 MG Cap PO SCH ×2 (08:37→20:54)
[2016-10-24] MEDS: Sodium Chloride 0.9% 10 ML Syringe FLUSH PRN ×3 (11:32→18:39)
[2016-10-24] MEDS: FLUoxetine 20 MG Cap PO SCH (18:42)
[2016-10-24] MEDS: traZODone 100 MG Tab PO SCH (18:42)
[2016-10-24] MEDS: Loratadine 10 MG Tab PO SCH (18:42)
[2016-10-24] MEDS: Tamsulosin 0.4 MG Cap.ER PO SCH (20:55)
[2016-10-24] MEDS: Finasteride 5 MG Tab PO SCH (20:56)
[2016-10-25] MEDS: Acetaminophen 500 MG Tab PO PRN ×2 (02:22→21:05)
[2016-10-25] MEDS: ceFAZolin 2 GM in Premix Bag 1 BAG IV SCH ×3 (02:24→17:45)
[2016-10-25] MEDS: Heparin Sodium 10 Units/ML 5 ML Syringe FLUSH SCH ×3 (03:16→18:46)
[2016-10-25] MEDS: Pantoprazole 40 MG Tab.CR PO SCH (06:03)
[2016-10-25] MEDS: Rifampin 300 MG Cap PO SCH ×2 (08:46→21:15)
[2016-10-25] MEDS: Aspirin 325 MG Tab.EC PO SCH ×2 (08:46→21:05)
[2016-10-25] MEDS: Metoprolol Tartrate 25 MG Tab PO SCH ×2 (08:46→21:05)
[2016-10-25] MEDS: Venlafaxine 75 MG Tab PO SCH ×2 (08:47→20:57)
[2016-10-25] MEDS: Docusate Sodium 100 MG Cap PO SCH ×2 (08:48→20:56)
[2016-10-25] MEDS: Gabapentin 300 MG Cap PO SCH (08:48)
[2016-10-25] MEDS: Hydrochlorothiazide/Losartan 25-100 MG Tab PO SCH (08:48)
[2016-10-25] MEDS: Multivitamin Tab PO SCH (08:48)
[2016-10-25] MEDS: Celecoxib 200 MG Cap PO SCH (08:48)
[2016-10-25] MEDS: Sodium Chloride 0.9% 10 ML Syringe FLUSH PRN ×4 (10:15→18:47)
[2016-10-25] MEDS: Sodium Chloride 0.9% 250 ML IV SCH (10:20)
--- NOTE | 2016-10-25 10:25 | PN ---
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 He underwent a left total knee arthroplasty in the past and subsequently the joint got infected. This was on re-operated, but the hardware was left in. He was started on IV antibiotics and is now on IV cefazolin scheduled through October 30 along with oral rifampin b.i.d., which he will remain on for life. Additionally, while he was hospitalized at [facility], he developed a DVT from infiltrated IV in his right arm, which compromised function in the arm. He has been getting physical therapy on this as well as on his knee. The therapist who is seeing him with me today documents good progress on both the hand, arm, and knee with much improved ambulation since arrival. Dustin confirms this as well. OBJECTIVE: GENERAL: He is alert, comfortable. He appears depressed, however. VITAL SIGNS: Blood pressure 125/80, pulse 67 and regular, respirations 18, temp 98.1, O2 saturation 98% on room air. EXTREMITIES: Examination of his right arm reveals very slight puffiness yet at the distal forearm compared to left side. No tenderness or pain and early intervention specialist strength is good. He is working on the [facility] well. Left knee incision shows no sign of drainage. It is mildly erythematous. He has been ambulating twice a day with physical therapy. He has progressed to car transfer, which has gone satisfactorily. ASSESSMENT: 1. Septic arthritis, left knee joint. 2. Deep vein thrombosis right upper extremity post IV. 3. Depression. PLAN: We will continue his current medications. Continue his therapy and I believe he is still on schedule for discharge on 10/30. /[id number] RO/MODL
[2016-10-25] MEDS: Loratadine 10 MG Tab PO SCH (17:48)
[2016-10-25] MEDS: traZODone 100 MG Tab PO SCH (17:48)
[2016-10-25] MEDS: FLUoxetine 20 MG Cap PO SCH (17:49)
[2016-10-25] MEDS: Gabapentin 100 MG Cap PO SCH (20:56)
[2016-10-25] MEDS: Tamsulosin 0.4 MG Cap.ER PO SCH (20:57)
[2016-10-25] MEDS: Finasteride 5 MG Tab PO SCH (20:57)
[2016-10-26] MEDS ORDERED: hydrOXYzine HCl 25 MG Tab PO ONE (00:43)
[2016-10-26] MEDS: ceFAZolin 2 GM in Premix Bag 1 BAG IV SCH ×3 (02:12→17:30)
[2016-10-26] MEDS: Heparin Sodium 10 Units/ML 5 ML Syringe FLUSH SCH ×3 (03:03→18:20)
[2016-10-26] MEDS: Acetaminophen 500 MG Tab PO PRN (07:12)
[2016-10-26] MEDS: Rifampin 300 MG Cap PO SCH ×2 (08:08→20:33)
[2016-10-26] MEDS: Metoprolol Tartrate 25 MG Tab PO SCH ×2 (08:08→20:31)
[2016-10-26] MEDS: Gabapentin 100 MG Cap PO SCH ×2 (08:08→20:32)
[2016-10-26] MEDS: Celecoxib 200 MG Cap PO SCH (08:09)
[2016-10-26] MEDS: Docusate Sodium 100 MG Cap PO SCH ×2 (08:09→20:29)
[2016-10-26] MEDS: Aspirin 325 MG Tab.EC PO SCH ×2 (08:09→20:30)
[2016-10-26] MEDS: Multivitamin Tab PO SCH (08:09)
[2016-10-26] MEDS: Hydrochlorothiazide/Losartan 25-100 MG Tab PO SCH (08:09)
[2016-10-26] MEDS: Venlafaxine 75 MG Tab PO SCH ×2 (08:09→20:30)
[2016-10-26] MEDS: Sodium Chloride 0.9% 10 ML Syringe FLUSH PRN ×4 (09:53→18:20)
[2016-10-26] MEDS: Sodium Chloride 0.9% 250 ML IV SCH (10:00)
[2016-10-26] MEDS: Acetaminophen/HYDROcodone 325-5 MG Tab PO PRN ×2 (13:08→20:33)
[2016-10-26] MEDS: Loratadine 10 MG Tab PO SCH (17:32)
[2016-10-26] MEDS: FLUoxetine 20 MG Cap PO SCH (17:33)
[2016-10-26] MEDS: traZODone 100 MG Tab PO SCH (17:33)
[2016-10-26] MEDS: Tamsulosin 0.4 MG Cap.ER PO SCH (20:28)
[2016-10-26] MEDS: Finasteride 5 MG Tab PO SCH (20:32)
[2016-10-27] MEDS: ceFAZolin 2 GM in Premix Bag 1 BAG IV SCH ×3 (02:16→18:49)
[2016-10-27] MEDS: Heparin Sodium 10 Units/ML 5 ML Syringe FLUSH SCH ×6 (02:18→20:00)
[2016-10-27] MEDS: Acetaminophen 500 MG Tab PO PRN (02:57)
[2016-10-27] MEDS: Acetaminophen/HYDROcodone 325-5 MG Tab PO PRN ×3 (08:12→19:09)
[2016-10-27] MEDS: Gabapentin 100 MG Cap PO SCH ×2 (08:14→20:01)
[2016-10-27] MEDS: Celecoxib 200 MG Cap PO SCH (08:14)
[2016-10-27] MEDS: Docusate Sodium 100 MG Cap PO SCH ×2 (08:14→19:59)
[2016-10-27] MEDS: Venlafaxine 75 MG Tab PO SCH ×2 (08:14→20:00)
[2016-10-27] MEDS: Metoprolol Tartrate 25 MG Tab PO SCH ×2 (08:14→20:02)
[2016-10-27] MEDS: Multivitamin Tab PO SCH (08:14)
[2016-10-27] MEDS: Hydrochlorothiazide/Losartan 25-100 MG Tab PO SCH (08:14)
[2016-10-27] MEDS: Rifampin 300 MG Cap PO SCH ×2 (08:15→20:01)
[2016-10-27] MEDS: Aspirin 325 MG Tab.EC PO SCH ×2 (08:15→20:00)
[2016-10-27] MEDS: Sodium Chloride 0.9% 10 ML Syringe FLUSH PRN ×3 (09:37→18:49)
[2016-10-27] MEDS: Sodium Chloride 0.9% 250 ML IV SCH (09:45)
[2016-10-27] MEDS: Loratadine 10 MG Tab PO SCH (18:49)
[2016-10-27] MEDS: traZODone 100 MG Tab PO SCH (18:49)
[2016-10-27] MEDS: FLUoxetine 20 MG Cap PO SCH (18:49)
[2016-10-27] MEDS: Tamsulosin 0.4 MG Cap.ER PO SCH (19:59)
[2016-10-27] MEDS: Finasteride 5 MG Tab PO SCH (20:01)
[2016-10-28] MEDS: ceFAZolin 2 GM in Premix Bag 1 BAG IV SCH ×3 (02:54→18:05)
[2016-10-28] MEDS: Heparin Sodium 10 Units/ML 5 ML Syringe FLUSH SCH ×3 (03:45→19:33)
[2016-10-28] MEDS: Acetaminophen/HYDROcodone 325-5 MG Tab PO PRN ×2 (06:41→19:34)
[2016-10-28] MEDS: Celecoxib 200 MG Cap PO SCH (08:22)
[2016-10-28] MEDS: Venlafaxine 75 MG Tab PO SCH ×2 (08:23→21:07)
[2016-10-28] MEDS: Rifampin 300 MG Cap PO SCH ×2 (08:23→21:08)
[2016-10-28] MEDS: Metoprolol Tartrate 25 MG Tab PO SCH ×2 (08:23→21:08)
[2016-10-28] MEDS: Aspirin 325 MG Tab.EC PO SCH (08:23)
[2016-10-28] MEDS: Gabapentin 100 MG Cap PO SCH ×2 (08:23→21:08)
[2016-10-28] MEDS: Docusate Sodium 100 MG Cap PO SCH ×2 (08:23→21:07)
[2016-10-28] MEDS: Hydrochlorothiazide/Losartan 25-100 MG Tab PO SCH (08:23)
[2016-10-28] MEDS: Multivitamin Tab PO SCH (08:24)
[2016-10-28] MEDS: Hydrocortisone Acetate 1% Crm 30 GM Tube TOP SCH ×2 (10:39→21:07)
[2016-10-28] MEDS: Acetaminophen 500 MG Tab PO PRN (13:07)
[2016-10-28] MEDS: FLUoxetine 20 MG Cap PO SCH (18:06)
[2016-10-28] MEDS: traZODone 100 MG Tab PO SCH (18:07)
[2016-10-28] MEDS: Loratadine 10 MG Tab PO SCH (18:07)
[2016-10-28] MEDS: Sodium Chloride 0.9% 250 ML IV SCH (18:08)
[2016-10-28] MEDS: Sodium Chloride 0.9% 10 ML Syringe FLUSH PRN (19:33)
[2016-10-28] MEDS: Tamsulosin 0.4 MG Cap.ER PO SCH (21:07)
[2016-10-28] MEDS: Finasteride 5 MG Tab PO SCH (21:08)
[2016-10-29] MEDS: ceFAZolin 2 GM in Premix Bag 1 BAG IV SCH ×3 (01:45→18:06)
[2016-10-29] MEDS: Heparin Sodium 10 Units/ML 5 ML Syringe FLUSH SCH ×3 (02:35→18:06)
[2016-10-29] MEDS: Sodium Chloride 0.9% 10 ML Syringe FLUSH PRN ×3 (02:35→18:05)
[2016-10-29] MEDS: Acetaminophen 500 MG Tab PO PRN ×2 (06:15→22:11)
[2016-10-29] MEDS: Celecoxib 200 MG Cap PO SCH (10:01)
[2016-10-29] MEDS: Venlafaxine 75 MG Tab PO SCH ×2 (10:02→20:19)
[2016-10-29] MEDS: Docusate Sodium 100 MG Cap PO SCH ×2 (10:02→20:18)
[2016-10-29] MEDS: Hydrocortisone Acetate 1% Crm 30 GM Tube TOP SCH ×2 (10:02→20:19)
[2016-10-29] MEDS: Hydrochlorothiazide/Losartan 25-100 MG Tab PO SCH (10:03)
[2016-10-29] MEDS: Metoprolol Tartrate 25 MG Tab PO SCH ×2 (10:04→20:19)
[2016-10-29] MEDS: Gabapentin 100 MG Cap PO SCH ×2 (10:06→20:20)
[2016-10-29] MEDS: Rifampin 300 MG Cap PO SCH ×2 (10:06→20:21)
[2016-10-29] MEDS: Multivitamin Tab PO SCH (10:06)
[2016-10-29] MEDS: Loratadine 10 MG Tab PO SCH (18:07)
[2016-10-29] MEDS: traZODone 100 MG Tab PO SCH (18:07)
[2016-10-29] MEDS: FLUoxetine 20 MG Cap PO SCH (18:07)
[2016-10-29] MEDS: Tamsulosin 0.4 MG Cap.ER PO SCH (20:18)
[2016-10-29] MEDS: Finasteride 5 MG Tab PO SCH (20:20)
[2016-10-30] MEDS: ceFAZolin 2 GM in Premix Bag 1 BAG IV SCH (01:54)
[2016-10-30] MEDS: Heparin Sodium 10 Units/ML 5 ML Syringe FLUSH SCH (02:49)
[2016-10-30] MEDS: Celecoxib 200 MG Cap PO SCH (07:59)
[2016-10-30] MEDS: Hydrocortisone Acetate 1% Crm 30 GM Tube TOP SCH (07:59)
[2016-10-30] MEDS: Venlafaxine 75 MG Tab PO SCH (07:59)
[2016-10-30] MEDS: Docusate Sodium 100 MG Cap PO SCH (07:59)
[2016-10-30] MEDS: Hydrochlorothiazide/Losartan 25-100 MG Tab PO SCH (08:00)
[2016-10-30] MEDS: Metoprolol Tartrate 25 MG Tab PO SCH (08:00)
[2016-10-30] MEDS: Rifampin 300 MG Cap PO SCH (08:00)
[2016-10-30] MEDS: Gabapentin 100 MG Cap PO SCH (08:00)
[2016-10-30] MEDS: Multivitamin Tab PO SCH (08:01)
[2016-10-30 08:03] VITALS: BP 118/65
[2016-10-30] MEDS: Acetaminophen 500 MG Tab PO PRN (08:14)
[2016-10-30] MEDS ORDERED: Rifampin 300 MG Cap PO ONE (11:09)
[2016-10-30] MEDS ORDERED: Rifampin 300 MG Cap PO SCH (21:00)
--- NOTE | 2016-10-31 04:51 | DISCH ---
DISCHARGE DATE: 10/30/2016 OPERATIONS: None. COMPLICATIONS: None. SUMMARY: Mr. Justice is a 60-year-old man from [place], [place], who underwent total knee arthroplasty on August 25, 2016. Postoperatively, he had complications of atrial fibrillation and intra-articular hemorrhage that delayed his recuperation. He subsequently was readmitted on September 17 with an I and D, poly exchange, and cultures positive for MSSA septic arthritis. Postsurgical clean out, he developed a superficial DVT in the right upper extremity. His recuperation was slow and he was discharged to [facility] swing bed on 09/23/2016. He has been maintained in swing bed on IV cefazolin, oral rifampin, and physical therapy. He has been tolerating this and making slow steady improvement in ambulation, pain control, etc. He developed urinary retention and was started on Flomax and finasteride for BPH. The patient has remained afebrile throughout his hospitalization and laboratory studies have included hemoglobin of 8.8, white count 12,100 on admission with a CRP of 8.8. His hemoglobin has slowly risen. By 10/27/2016, his white count is 8400, hemoglobin 11 g, MCV 91, normal differential. Creatinine 0.8. AST and ALT normal, and CRP down to 2.2. He is discharged to home to continue oral rifampin. His cefazolin is discontinued and his PICC line is removed. MEDICATIONS: He will be on medications as follows: 1. Flomax 0.4 mg daily. 2. Rifampin 300 mg b.i.d. 3. Omeprazole 20 mg daily. 4. Milk of magnesia p.r.n. constipation. 5. Claritin 10 mg daily. 6. Hydrocortisone cream p.r.n. 7. Gabapentin 300 mg b.i.d. 8. Finasteride 5 mg daily. 9. Docusate 100 mg b.i.d. 10.Celebrex 200 mg daily. 11.Aspirin 325 mg daily. 12.Magaldrate p.r.n. 13.Blissfield 5/325 one to two every 4 hours p.r.n. 14.Trazodone 100 mg at bedtime. 15.Effexor 75 mg b.i.d. 16.Multiple vitamin one daily. 17.Metoprolol 25 mg b.i.d. 18.Losartan/hydrochlorothiazide one tablet daily. 19.Gabapentin 100 mg b.i.d. 20.Fluoxetine 20 mg daily. He is to have follow up with Orthopedics as previously planned and get in touch with his regular doctor on a p.r.n. basis. /[id number] CARLEEN/AURELIA
== END 2016-10-30 11:10 | disposition home or self-care (01) | DRG 344 ==
LOC: FB.MS 12:50
PROVIDERS: ADMIT Family Medicine; ATTEND Family Medicine
DX: M00.062 Staphylococcal arthritis, left knee (principal); B95.61 Methicillin susceptible Staphylococcus aureus infection as the cause of diseases classified elsewhere; Z96.653 Presence of artificial knee joint, bilateral; M79.89 Other specified soft tissue disorders; R60.9 Edema, unspecified; I10 Essential (primary) hypertension; F32.9 Major depressive disorder, single episode, unspecified; Z86.718 Personal history of other venous thrombosis and embolism; K21.9 Gastro-esophageal reflux disease without esophagitis; M19.90 Unspecified osteoarthritis, unspecified site; M54.9 Dorsalgia, unspecified; G89.29 Other chronic pain; Z87.440 Personal history of urinary (tract) infections; H91.90 Unspecified hearing loss, unspecified ear; H54.7 Unspecified visual loss; Z79.82 Long term (current) use of aspirin; Z91.048 Other nonmedicinal substance allergy status; T80.1XXA Vascular complications following infusion, transfusion and therapeutic injection, initial encounter; N40.1 Benign prostatic hyperplasia with lower urinary tract symptoms; R33.8 Other retention of urine; Z87.898 Personal history of other specified conditions
CPT/HCPCS: 36415; 80053; 80076; 82565; 85025; 86140; 93970; 97110-GO; 97110-GP; 97116-GP; 97162-GP; 97165-GO; 97530-GO; 97530-GO-KX; 97530-GP; 97535-GO; A9270-GY; J0690; J1642; J1650; J7050

== ENCOUNTER 2019-06-26 14:40 | Emergency (ER) | payer MEDICARE, OTHER ==
[2019-06-26] MEDS ORDERED: Acetaminophen/HYDROcodone 325-5 MG Tab PO ONE (14:41)
[2019-06-26 15:05] VITALS: BP 129/91; PULSE 113
--- NOTE | 2019-06-26 15:11 | EDM.PDOC ---
ED HPI GENERAL MEDICAL PROBLEM - General Chief Complaint: Respiratory Problem Stated Complaint: BROKE RIBS Time Seen by Provider: 06/26/19 15:06 Source of Information: Reports: Patient History Limitations: Reports: No Limitations - History of Present Illness INITIAL COMMENTS - FREE TEXT/NARRATIVE: Presents with productive cough x 5-6 days. Patient experienced left chest pain after a cough on 06/22/19, he believes he may have broken a rib. Denies fevers, chills or SOB. He is unable to sleep due to the pain, and has had no improvement with Tylenol or Ibuprofen. Patient does not smoke cigarettes or vape. He denies known exposure to a person diagnosed with COVID-19 or PUI. Also denies travel in the last 14 days. Location: Reports: Chest Severity: Moderate left rib Pain Score (Numeric/FACES): 9 - Related Data Allergies Allergy/AdvReac Type Severity Reaction Status Date / Time BARLEY GRAIN Allergy Difficulty Uncoded 09/23/16 14:41 Breathing Home Meds: Home Meds FLUoxetine [PROzac] 20 mg PO WITHDINNER 09/13/16 [History] Losartan/Hydrochlorothiazide [Hyzaar 100-25 Tablet] 1 tab PO DAILY 09/13/16 [ History] Omeprazole 20 mg PO DAILY 09/13/16 [History] Venlafaxine [Effexor] 75 mg PO BID 09/13/16 [History] traZODone HCl [Trazodone HCl] 100 mg PO BEDTIME 09/13/16 [History] Aspirin [Ecotrin EC] 325 mg PO BID 09/23/16 [History] Loratadine 10 mg PO DAILY PRN 09/23/16 [History] Multivitamin [Daily Jorge] 1 tab PO DAILY 09/23/16 [History] Alum Hydroxide/Mag Hydroxide [Mag-Al] 30 ml PO Q2H PRN #0 cup 10/30/16 [Rx] Celecoxib [CeleBREX] 200 mg PO DAILY #30 cap 10/30/16 [Rx] Docusate Sodium [Colace] 100 mg PO BID cap 10/30/16 [Rx] Finasteride [Proscar] 5 mg PO BEDTIME #30 tablet 10/30/16 [Rx] Gabapentin [Neurontin] 100 mg PO BID #60 cap 10/30/16 [Rx] Hydrocortisone Acetate [Hydrocortisone Acetate 1% Crm] 0 gm TOP BID tube [Rx] Loratadine [Claritin] 10 mg PO DAILY@1800 tablet 10/30/16 [Rx] Magnesium Hydroxide [Milk of Magnesia] 30 ml PO DAILY PRN #0 cup 10/30/16 [Rx] Metoprolol Tartrate [Lopressor] 25 mg PO BID #60 tablet 10/30/16 [Rx] Tamsulosin [Flomax] 0.4 mg PO DAILY@2000 #30 cap.er 10/30/16 [Rx] Acetaminophen/HYDROcodone [Nash 325-5 MG] 1 - 2 tab PO Q6H PRN #16 tab [Rx] Doxycycline Monohydrate 100 mg PO BID #20 capsule 06/26/19 [Rx] Past Medical History HEENT History: Reports: Epistaxis, Hard of Hearing, Impaired Vision, Otitis Media, Sinusitis Cardiovascular History: Reports: Afib, Hypertension, SOB on Exertion Respiratory History: Reports: Bronchitis, Recurrent, SOB Gastrointestinal History: Reports: GERD, Hemorrhoids, Other (See Below) Other Gastrointestinal History: OBESITY Genitourinary History: Reports: UTI, Recurrent Musculoskeletal History: Reports: Arthritis, Back Pain, Chronic, Fracture, Osteoarthritis Psychiatric History: Reports: Depression Dermatologic History: Reports: Other (See Below) Other Dermatologic History: 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 KNEE REPLACEMENTS, BUNIONECTOMY ON LEFT FOOT, BACK SURGERY Dermatological Surgical History: Reports: None Social & Family History - Family History Family Medical History: Noncontributory - Tobacco Use Tobacco Use Within Last Twelve Months: No - Caffeine Use Caffeine Use: Reports: Soda Other Caffeine Use: ABOUT 3 CANS COKE PER DAY. ED ROS GENERAL - Review of Systems Review Of Systems: Comprehensive ROS is negative, except as noted in HPI. ED EXAM, GENERAL - Physical Exam Exam: See Below Exam Limited By: No Limitations General Appearance: Alert, WD/WN, No Apparent Distress Throat/Mouth: No Airway Compromise Head: Atraumatic, Normocephalic Neck: Full Range of Motion Respiratory/Chest: No Respiratory Distress, Lungs Clear, Normal Breath Sounds, Other (left upper chest wall tenderness @costochondral junction, and tenderness to left lateral ribs (there is ecchymosis to this area)) Cardiovascular: Regular Rate, Rhythm, No Murmur Back Exam: Full Range of Motion Extremities: Normal Range of Motion Neurological: Alert, Normal Cognition Psychiatric: Normal Affect, Normal Mood Skin Exam: Warm, Dry, Intact, Other (As above) Course - Vital Signs Last Recorded V/S: Last Vital Signs Temp 37.0 C 06/26/19 14:40 Pulse 113 H 06/26/19 14:40 Resp 18 06/26/19 14:40 BP 129/91 H 06/26/19 14:40 Pulse Ox 96 06/26/19 14:40 - Orders/Labs/Meds Orders: Active Orders 24 hr Category Date Time Status CXR [Chest 2V] [CR] Stat Exams 06/26/19 15:05 Taken Ribs 3V wo Chest Lt [CR] Stat Exams 06/26/19 15:58 Taken Meds: Medications Discontinued Medications Generic Name Dose Route Start Last Admin Trade Name Freq PRN Reason Stop Dose Admin Doxycycline Hyclate 100 mg 06/26/19 16:38 Vibra-Tabs PO 06/26/19 16:39 ONETIME ONE - Radiology Interpretation Free Text/Narrative:: CXR: No acute cardiopulmonary process identified. ([facility], Dr. Silva) Left Rib XR: Subtle non-displaced fractures posterolateral left 8th and 9th ribs. Questionable subtle fracture of the left 7th rib as well. ([facility], Dr. Silva) Departure - Departure Time of Disposition: 16:43 Disposition: Home, Self-Care 01 Condition: Good Clinical Impression: URI (upper respiratory infection) Qualifiers: URI type: unspecified URI Qualified Code(s): J06.9 - Acute upper respiratory infection, unspecified Ribs, multiple fractures Qualifiers: Encounter type: initial encounter Fracture type: closed Laterality: left Qualified Code(s): S22.42XA - Multiple fractures of ribs, left side, initial encounter for closed fracture - Discharge Information *PRESCRIPTION DRUG MONITORING PROGRAM REVIEWED*: Yes *COPY OF PRESCRIPTION DRUG MONITORING REPORT IN PATIENT ANA MARÍA: No Prescriptions: Acetaminophen/HYDROcodone [Nash 325-5 MG] 1 - 2 tab PO Q6H PRN #16 tab PRN Reason: Pain Doxycycline Monohydrate 100 mg PO BID #20 capsule Instructions: Upper Respiratory Infection, Adult, [id number], Rib Fracture, [id number] Referrals: Dasha Hamlin PA-C [Primary Care Provider] - 2 Days Forms: ED Department Discharge Additional Instructions: Fill the Doxycycline and Nash prescriptions and take as directed. Take OTC Mucinex as needed. Use the incentive spirometer every 1-2 hours while awake. Follow up with your primary physician in 2-3 days. Return to the ER if symptoms worsen. Sepsis Event Note - Evaluation Sepsis Screening Result: No Definite Risk - Focused Exam Vital Signs: Vital Signs Temp Pulse Resp BP Pulse Ox 06/26/19 14:40 37.0 C 113 H 18 129/91 H 96 Date Exam was Performed: 06/26/19 Time Exam was Performed: 16:41 - My Orders Last 24 Hours: My Active Orders 06/26/19 15:05 CXR [Chest 2V] [CR] Stat 06/26/19 15:58 Ribs 3V wo Chest Lt [CR] Stat - Assessment/Plan Last 24 Hours: My Active Orders 06/26/19 15:05 CXR [Chest 2V] [CR] Stat 06/26/19 15:58 Ribs 3V wo Chest Lt [CR] Stat
[2019-06-26] MEDS ORDERED: Doxycycline 100 MG Tab PO ONE (16:38)
== END 2019-06-26 17:03 | disposition home or self-care (01) ==
LOC: FB.ED 14:40
DX: S22.42XA Multiple fractures of ribs, left side, initial encounter for closed fracture (principal); J06.9 Acute upper respiratory infection, unspecified; I10 Essential (primary) hypertension; Z88.8 Allergy status to other drugs, medicaments and biological substances; Z79.899 Other long term (current) drug therapy; Z79.82 Long term (current) use of aspirin; X58.XXXA Exposure to other specified factors, initial encounter
CPT/HCPCS: 71046; 71101; 99285; A9270; 99283

== ENCOUNTER 2019-07-14 20:45 | Inpatient (IN) | payer MEDICARE, OTHER ==
[2019-07-14] MEDS ORDERED: Morphine 2 MG/ML Syringe IVPUSH PRN (20:51)
[2019-07-14] MEDS ORDERED: Ketorolac 30 MG/ML SDV IVPUSH PRN (20:51)
[2019-07-14] MEDS: Sodium Chloride 0.9% 10 ML Syringe FLUSH PRN ×3 (20:55→22:43)
[2019-07-14] MEDS ORDERED: Morphine 2 MG/ML Syringe ONE (21:02)
[2019-07-14] MEDS ORDERED: Ondansetron 4 MG/2 ML SDV IV PRN (21:33)
[2019-07-14] MEDS ORDERED: Docusate Sodium 100 MG Cap PO PRN (21:33)
[2019-07-14] MEDS ORDERED: Bisacodyl 5 MG Tab PO PRN (21:33)
[2019-07-14] MEDS ORDERED: Albuterol 0.5% 5 MG/ML Neb Soln 20 ML Bottle NEB PRN (21:42)
[2019-07-14] MEDS ORDERED: Loratadine 10 MG Tab PO PRN (22:00)
[2019-07-14] MEDS ORDERED: Hydrocortisone Acetate 1% Crm 30 GM Tube TOP PRN (22:00)
[2019-07-14] MEDS ORDERED: Magnesium Hydroxide 400 MG/5 ML Susp 30 ML Cup PO PRN (22:00)
--- NOTE | 2019-07-14 22:13 | EDM.PDOC ---
ED HPI GENERAL MEDICAL PROBLEM - General Chief Complaint: Respiratory Problem Stated Complaint: RIB PAIN Time Seen by Provider: 07/14/19 20:45 Source of Information: Reports: Patient History Limitations: Reports: No Limitations - History of Present Illness INITIAL COMMENTS - FREE TEXT/NARRATIVE: Patient presented to the ED because of left sided. He was diagnosed with pneumonia and spontaneous rib fracture on 06/26/19. He was treated with [place] and doxycycline which didn't help. He went to follow up with his medical provider on 07/11/19 and 07/14/19 and a repeat chest xray did show increase infiltrate. He was then started on duricef and apparently tonight he has persistent cough and dyspneic although his oxygen saturation was 95% on RA. There is no fever or chills, N/V/D. He was recently tested for Covid-19 which was negative. - Related Data Allergies Allergy/AdvReac Type Severity Reaction Status Date / Time BARLEY GRAIN Allergy Difficulty Uncoded 07/14/19 20:54 Breathing Home Meds: Home Meds Omeprazole 20 mg PO DAILY 09/13/16 [History] Loratadine 10 mg PO DAILY PRN 09/23/16 [History] Multivitamin [Daily Jorge] 1 tab PO DAILY 09/23/16 [History] Celecoxib [CeleBREX] 200 mg PO DAILY #30 cap 10/30/16 [Rx] Finasteride [Proscar] 5 mg PO BEDTIME #30 tablet 10/30/16 [Rx] Magnesium Hydroxide [Milk of Magnesia] 30 ml PO DAILY PRN #0 cup 10/30/16 [Rx] Tamsulosin [Flomax] 0.4 mg PO DAILY@1999 #30 cap.er 10/30/16 [Rx] Acetaminophen/HYDROcodone [[place] 325-5 MG] 1 - 2 tab PO Q6H PRN #16 tab [Rx] Cefadroxil [Duricef] 500 mg PO BID 07/14/19 [History] Furosemide [Lasix] 40 mg PO DAILY 07/14/19 [History] Gabapentin [Neurontin] 300 mg PO BID 07/14/19 [History] Hydrocortisone Acetate [Hydrocortisone Acetate 1% Crm] 1 applic TOP BID PRN 12/24 [History] Losartan [Cozaar] 100 mg PO DAILY 07/14/19 [History] guaiFENesin/Dextromethorphan [Mucinex Dm ER 1,200-60 mg Tab] 1 each PO Q12H PRN 07/14/19 [History] hydroCHLOROthiazide [Hydrochlorothiazide] 25 mg PO DAILY 07/14/19 [History] metFORMIN HCl [Glucophage] 1,000 mg PO DAILY 07/14/19 [History] traZODone 150 mg PO BEDTIME 07/14/19 [History] Past Medical History HEENT History: Reports: Epistaxis, Hard of Hearing, Impaired Vision, Otitis Media, Sinusitis Cardiovascular History: Reports: Afib, Hypertension, SOB on Exertion Respiratory History: Reports: Bronchitis, Recurrent, SOB Gastrointestinal History: Reports: GERD, Hemorrhoids, Other (See Below) Other Gastrointestinal History: OBESITY Genitourinary History: Reports: UTI, Recurrent Musculoskeletal History: Reports: Arthritis, Back Pain, Chronic, Fracture, Osteoarthritis Psychiatric History: Reports: Depression Dermatologic History: Reports: Other (See Below) Other Dermatologic History: 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 KNEE REPLACEMENTS, BUNIONECTOMY ON LEFT FOOT, BACK SURGERY Dermatological Surgical History: Reports: None Social & Family History - Family History Family Medical History: Noncontributory Musculoskeletal: Reports: Arthritis Psychiatric: Reports: Anxiety, Depression - Caffeine Use Caffeine Use: Reports: Soda Other Caffeine Use: ABOUT 3 CANS COKE PER DAY. Caffeine Use Comment: Drinks coke everyday ED ROS GENERAL - Review of Systems Review Of Systems: See Below Constitutional: Reports: No Symptoms HEENT: Reports: No Symptoms Respiratory: Reports: Shortness of Breath, Cough. Denies: Sputum Cardiovascular: Reports: No Symptoms Endocrine: Reports: No Symptoms GI/Abdominal: Reports: No Symptoms : Reports: No Symptoms Musculoskeletal: Reports: No Symptoms, Neck Pain, Shoulder Pain Skin: Reports: No Symptoms, Cyanosis Neurological: Reports: No Symptoms, Confusion, Dizziness Psychiatric: Reports: No Symptoms Hematologic/Lymphatic: Reports: No Symptoms Immunologic: Reports: No Symptoms ED EXAM, GENERAL - Physical Exam Exam: See Below Exam Limited By: No Limitations General Appearance: Alert, WD/WN, No Apparent Distress Eye Exam: Bilateral Eye: PERRL Ears: Normal External Exam, Normal Canal Nose: Normal Inspection, Normal Mucosa, No Blood Throat/Mouth: Normal Inspection, Normal Lips, Normal Teeth, Normal Gums Head: Atraumatic, Normocephalic Neck: Normal Inspection, Supple, Non-Tender, Full Range of Motion Respiratory/Chest: No Respiratory Distress, Lungs Clear, Normal Breath Sounds, Other (tenderness over the left rib area) Cardiovascular: Normal Peripheral Pulses, Regular Rate, Rhythm, No Edema, No Gallop, No Murmur, No Rub GI/Abdominal: Normal Bowel Sounds, Soft, Non-Tender, No Organomegaly Back Exam: Normal Inspection Extremities: Normal Inspection, Normal Range of Motion Course - Vital Signs Text/Narrative:: Labs was reviewed and discussed with the patient and verbalized full understanding Duoneb x1 Morphine 4 mg IV x1 Toradol 30 mg IV x1 Admit to inpatient start on Zosyn IV Last Recorded V/S: Last Vital Signs Temp 36.1 C 07/14/19 20:45 Pulse 103 H 07/14/19 20:57 Resp 22 H 07/14/19 20:45 BP 174/91 H 07/14/19 20:45 Pulse Ox 94 L 07/14/19 20:57 - Orders/Labs/Meds Orders: Active Orders 24 hr Category Date Time Status Oxygen Therapy [RC] PRN Care 07/14/19 21:33 Active Pulse Oximetry [RC] CONTINUOUS Care 07/14/19 21:37 Active RT Aerosol Therapy [RC] ASDIRECTED Care 07/14/19 20:53 Active RT Aerosol Therapy [RC] ASDIRECTED Care 07/14/19 21:43 Active Up With Assistance [RC] ASDIRECTED Care 07/14/19 21:33 Active VTE/DVT Education [RC] Per Unit Routine Care 07/14/19 21:33 Active Vital Signs [RC] Q4H Care 07/14/19 21:33 Active Heart Healthy Diet [DIET] Diet 07/15/19 Breakfast Ordered BASIC METABOLIC PANEL,BMP [CHEM] Routine Lab 07/15/19 06:00 Ordered CBC WITH AUTO DIFF [HEME] Routine Lab 07/15/19 06:00 Ordered CULTURE BLOOD [BC] Urgent Lab 07/14/19 20:55 Received CULTURE BLOOD [BC] Urgent Lab 07/14/19 21:10 Received CULTURE SPUTUM + SMEAR [RM] Routine Lab 07/15/19 06:00 Ordered Acetaminophen/oxyCODONE [Percocet 325-5 MG] Med 07/14/19 21:33 Active 2 tab PO Q4H PRN Albuterol [Proventil Neb Soln] Med 07/14/19 21:42 Active 2.5 mg NEB Q2H PRN Albuterol/Ipratropium [DuoNeb 3.0-0.5 MG/3 ML] Med 07/14/19 20:51 Active 3 ml NEB Q6H PRN Docusate Sodium [Colace] Med 07/14/19 21:33 Active 100 mg PO BID PRN Enoxaparin [Lovenox] Med 07/14/19 21:45 Active 40 mg SUBCUT Q24H Ketorolac [Toradol] Med 07/14/19 20:51 Active 30 mg IVPUSH Q8H PRN Morphine Med 07/14/19 20:51 Active 4 mg IVPUSH Q4H PRN Ondansetron [Zofran] Med 07/14/19 21:33 Active 4 mg IV Q4H PRN Sodium Chloride 0.9% [Normal Saline] 1,000 ml Med 07/14/19 21:45 Active IV ASDIRECTED Sodium Chloride 0.9% [Saline Flush] Med 07/14/19 20:49 Active 10 ml FLUSH ASDIRECTED PRN bisacodyL [Dulcolax] Med 07/14/19 21:33 Active 5 mg PO DAILY PRN Blood Culture x2 Reflex Set [OM.PC] Urgent Oth 07/14/19 20:50 Ordered Saline Lock Insert [OM.PC] Routine Oth 07/14/19 20:49 Ordered Medication Orders Albuterol (Proventil Neb Soln) 2.5 mg NEB Q2H PRN PRN Reason: Dyspnea Albuterol/Ipratropium (Duoneb 3.0-0.5 Mg/3 Ml) 3 ml NEB Q6H PRN PRN Reason: Dyspnea Bisacodyl (Dulcolax) 5 mg PO DAILY PRN PRN Reason: Constipation Celecoxib (Celebrex) 200 mg PO DAILY [facility] Docusate Sodium (Colace) 100 mg PO BID PRN PRN Reason: Constipation Enoxaparin Sodium (Lovenox) 40 mg SUBCUT Q24H [facility] Finasteride (Proscar) 5 mg PO BEDTIME [facility] Furosemide (Lasix) 40 mg PO DAILY [facility] Gabapentin (Neurontin) 300 mg PO BID [facility] Hydrochlorothiazide (Hydrochlorothiazide) 25 mg PO DAILY [facility] Hydrocortisone Acetate (Hydrocortisone Acetate 1% Crm) gm TOP BID PRN PRN Reason: Rash Sodium Chloride (Normal Saline) 1,000 mls @ 125 mls/hr IV ASDIRECTED [facility] Piperacillin Sod/Tazobactam (Sod 4.5 gm/ Sodium Chloride) 100 mls @ 200 mls/hr IV Q6H [facility] Ketorolac Tromethamine (Toradol) 30 mg IVPUSH Q8H PRN PRN Reason: Pain Stop: 07/19/19 20:52 Last Admin: 07/14/19 21:04 Dose: 30 mg Loratadine (Claritin) 10 mg PO DAILY PRN PRN Reason: Allergies Losartan Potassium (Cozaar) 100 mg PO DAILY [facility] Magnesium Hydroxide (Milk Of Magnesia) 30 ml PO DAILY PRN PRN Reason: Constipation Metformin HCl (Glucophage) 1,000 mg PO DAILY [facility] Morphine Sulfate (Morphine) 4 mg IVPUSH Q4H PRN PRN Reason: Pain Last Admin: 07/14/19 20:55 Dose: 4 mg Multivitamins/Minerals/Vitamin C (Tab-A-Jorge) 1 tab PO DAILY [facility] Non-Formulary Medication (Guaifenesin/Dextromethorphan [Mucinex Dm Er 1,200-60 Mg]) 1 each PO Q12H PRN PRN Reason: Congestion Non-Formulary Medication (Omeprazole [Omeprazole]) 20 mg PO DAILY [facility] Non-Formulary Medication (Trazodone [Trazodone]) 150 mg PO BEDTIME [facility] Ondansetron HCl (Zofran) 4 mg IV Q4H PRN PRN Reason: Nausea/Vomiting Oxycodone/Acetaminophen (Percocet 325-5 Mg) 2 tab PO Q4H PRN PRN Reason: Pain (moderate 4-6) Sodium Chloride (Saline Flush) 10 ml FLUSH ASDIRECTED PRN PRN Reason: Keep Vein Open Last Admin: 07/14/19 21:04 Dose: 10 ml Admin: 07/14/19 20:55 Dose: 10 ml Tamsulosin HCl (Flomax) 0.4 mg PO DAILY@1999 [facility] Labs: Laboratory Tests 07/14/19 07/14/19 07/14/19 Range/Units 20:55 20:55 20:55 WBC 10.6 (4.5-12.0) X10-3/uL RBC 3.72 L (4.30-5.75) x10(6)uL Hgb 11.8 L (13.5-17.8) g/dL Hct 35.2 (30.0-51.3) % MCV 94.6 (80-96) fL MCH 31.6 (27.7-33.6) pg MCHC 33.4 (32.2-35.4) g/dL RDW 13.3 (11.5-15.5) % Plt Count 525 H (125-369) X10(3)uL MPV 6.3 L (7.4-10.4) fL Neut % (Auto) 74.6 (46-82) % Lymph % (Auto) 12.7 L (13-37) % [place] % (Auto) 9.3 (4-12) % Eos % (Auto) 3 (1.0-5.0) % Baso % (Auto) 1 (0-2) % Neut # (Auto) 7.9 (1.6-8.3) # Lymph # (Auto) 1.3 (0.6-5.0) # Hamilton # (Auto) 1.0 (0.0-1.3) # Eos # (Auto) 0.3 (0.0-0.8) # Baso # (Auto) 0.1 (0.0-0.2) # Sodium 141 (135-145) mmol/L Potassium 4.0 (3.5-5.3) mmol/L Chloride 103 (100-110) mmol/L Carbon Dioxide 32 (21-32) mmol/L BUN 15 (7-18) mg/dL Creatinine 1.1 (0.70-1.30) mg/dL Est Cr Clr Drug Dosing TNP Estimated GFR (MDRD) > 60 (>60) BUN/Creatinine Ratio 13.6 (9-20) Glucose 121 H (80-116) mg/dL Lactic Acid 1.1 (0.4-2.0) mmol/L Calcium 9.1 (8.6-10.2) mg/dL Total Bilirubin 0.6 (0.1-1.3) mg/dL AST 40 H (5-25) IU/L ALT 46 H (12-36) U/L Alkaline Phosphatase 123 H (56-112) IU/L Total Protein 7.1 (6.0-8.0) g/dL Albumin 2.7 L (3.2-4.6) g/dL Globulin 4.4 g/dL Albumin/Globulin Ratio 0.6 Meds: Medications Generic Name Dose Route Start Last Admin Trade Name Freq PRN Reason Stop Dose Admin Albuterol 2.5 mg 07/14/19 21:42 Proventil Neb Soln NEB Q2H PRN Dyspnea Albuterol/Ipratropium 3 ml 07/14/19 20:51 Duoneb 3.0-0.5 Mg/3 Ml NEB Q6H PRN Dyspnea Bisacodyl 5 mg 07/14/19 21:33 Dulcolax PO DAILY PRN Constipation Celecoxib 200 mg 07/15/19 09:00 Celebrex PO DAILY [facility] Docusate Sodium 100 mg 07/14/19 21:33 Colace PO BID PRN Constipation Enoxaparin Sodium 40 mg 07/14/19 21:45 Lovenox SUBCUT Q24H [facility] Finasteride 5 mg 07/15/19 21:00 Proscar PO BEDTIME [facility] Furosemide 40 mg 07/15/19 09:00 Lasix PO DAILY [facility] Gabapentin 300 mg 07/15/19 09:00 Neurontin PO BID [facility] Hydrochlorothiazide 25 mg 07/15/19 09:00 Hydrochlorothiazide PO DAILY [facility] Hydrocortisone Acetate gm 07/14/19 22:00 Hydrocortisone Acetate 1% Crm TOP BID PRN Rash Sodium Chloride 1,000 mls @ 125 mls/hr 07/14/19 21:45 Normal Saline IV ASDIRECTED [facility] Piperacillin Sod/Tazobactam 100 mls @ 200 mls/hr 07/14/19 21:45 Sod 4.5 gm/ Sodium Chloride IV Q6H [facility] Ketorolac Tromethamine 30 mg 07/14/19 20:51 07/14/19 21:04 Toradol IVPUSH 07/19/19 20:52 30 mg Q8H PRN Administration Pain Loratadine 10 mg 07/14/19 22:00 Claritin PO DAILY PRN Allergies Losartan Potassium 100 mg 07/15/19 09:00 Cozaar PO DAILY [facility] Magnesium Hydroxide 30 ml 07/14/19 22:00 Milk Of Magnesia PO DAILY PRN Constipation Metformin HCl 1,000 mg 07/15/19 09:00 Glucophage PO DAILY [facility] Morphine Sulfate 4 mg 07/14/19 20:51 07/14/19 20:55 Morphine IVPUSH 4 mg Q4H PRN Administration Pain Multivitamins/Minerals/Vitamin C 1 tab 07/15/19 09:00 Tab-A-Jorge PO DAILY [facility] Non-Formulary Medication 1 each 07/14/19 22:00 Guaifenesin/Dextromethorphan [Mucinex Dm Er 1,200-60 Mg] PO Q12H PRN Congestion Non-Formulary Medication 20 mg 07/15/19 09:00 Omeprazole [Omeprazole] PO DAILY [facility] Non-Formulary Medication 150 mg 07/15/19 21:00 Trazodone [Trazodone] PO BEDTIME [facility] Ondansetron HCl 4 mg 07/14/19 21:33 Zofran IV Q4H PRN Nausea/Vomiting Oxycodone/Acetaminophen 2 tab 07/14/19 21:33 Percocet 325-5 Mg PO Q4H PRN Pain (moderate 4-6) Sodium Chloride 10 ml 07/14/19 20:49 07/14/19 21:04 Saline Flush FLUSH 10 ml ASDIRECTED PRN Administration Keep Vein Open Tamsulosin HCl 0.4 mg 07/15/19 20:00 Flomax PO DAILY@1999 [facility] Discontinued Medications Generic Name Dose Route Start Last Admin Trade Name Freq PRN Reason Stop Dose Admin Morphine Sulfate Confirm 07/14/19 21:02 Morphine Administered 07/14/19 21:03 Dose 2 mg .ROUTE .STK-MED ONE Departure - Departure Time of Disposition: 20:45 Disposition: Admitted As Inpatient 64 Condition: Good Clinical Impression: Pneumonia, Rib fracture - Discharge Information Sepsis Event Note - Evaluation Sepsis Screening Result: Possible Sepsis Risk - Focused Exam Vital Signs: Vital Signs Temp Pulse Resp BP Pulse Ox Pulse Ox 07/14/19 20:57 103 H 94 L 07/14/19 20:45 36.1 C 103 H 22 H 174/91 H 94 L Date Exam was Performed: 07/14/19 Time Exam was Performed: 22:04 - My Orders Last 24 Hours: My Active Orders 07/14/19 20:49 Sodium Chloride 0.9% [Saline Flush] 10 ml FLUSH ASDIRECTED PRN Saline Lock Insert [OM.PC] Routine 07/14/19 20:50 Blood Culture x2 Reflex Set [OM.PC] Urgent 07/14/19 20:51 Albuterol/Ipratropium [DuoNeb 3.0-0.5 MG/3 ML] 3 ml NEB Q6H PRN Ketorolac [Toradol] 30 mg IVPUSH Q8H PRN Morphine 4 mg IVPUSH Q4H PRN 07/14/19 20:53 RT Aerosol Therapy [RC] ASDIRECTED 07/14/19 20:55 CULTURE BLOOD [BC] Urgent 07/14/19 21:10 CULTURE BLOOD [BC] Urgent 07/14/19 21:33 Oxygen Therapy [RC] PRN Up With Assistance [RC] ASDIRECTED VTE/DVT Education [RC] Per Unit Routine Vital Signs [RC] Q4H Acetaminophen/oxyCODONE [Percocet 325-5 MG] 2 tab PO Q4H PRN Docusate Sodium [Colace] 100 mg PO BID PRN Ondansetron [Zofran] 4 mg IV Q4H PRN bisacodyL [Dulcolax] 5 mg PO DAILY PRN 07/14/19 21:37 Pulse Oximetry [RC] CONTINUOUS 07/14/19 21:42 Albuterol [Proventil Neb Soln] 2.5 mg NEB Q2H PRN 07/14/19 21:43 RT Aerosol Therapy [RC] ASDIRECTED 07/14/19 21:45 Enoxaparin [Lovenox] 40 mg SUBCUT Q24H Sodium Chloride 0.9% [Normal Saline] 1,000 ml IV ASDIRECTED 07/15/19 06:00 BASIC METABOLIC PANEL,BMP [CHEM] Routine CBC WITH AUTO DIFF [HEME] Routine CULTURE SPUTUM + SMEAR [RM] Routine 07/15/19 Breakfast Heart Healthy Diet [DIET] - Assessment/Plan Last 24 Hours: My Active Orders 07/14/19 20:49 Sodium Chloride 0.9% [Saline Flush] 10 ml FLUSH ASDIRECTED PRN Saline Lock Insert [OM.PC] Routine 07/14/19 20:50 Blood Culture x2 Reflex Set [OM.PC] Urgent 07/14/19 20:51 Albuterol/Ipratropium [DuoNeb 3.0-0.5 MG/3 ML] 3 ml NEB Q6H PRN Ketorolac [Toradol] 30 mg IVPUSH Q8H PRN Morphine 4 mg IVPUSH Q4H PRN 07/14/19 20:53 RT Aerosol Therapy [RC] ASDIRECTED 07/14/19 20:55 CULTURE BLOOD [BC] Urgent 07/14/19 21:10 CULTURE BLOOD [BC] Urgent 07/14/19 21:33 Oxygen Therapy [RC] PRN Up With Assistance [RC] ASDIRECTED VTE/DVT Education [RC] Per Unit Routine Vital Signs [RC] Q4H Acetaminophen/oxyCODONE [Percocet 325-5 MG] 2 tab PO Q4H PRN Docusate Sodium [Colace] 100 mg PO BID PRN Ondansetron [Zofran] 4 mg IV Q4H PRN bisacodyL [Dulcolax] 5 mg PO DAILY PRN 07/14/19 21:37 Pulse Oximetry [RC] CONTINUOUS 07/14/19 21:42 Albuterol [Proventil Neb Soln] 2.5 mg NEB Q2H PRN 07/14/19 21:43 RT Aerosol Therapy [RC] ASDIRECTED 07/14/19 21:45 Enoxaparin [Lovenox] 40 mg SUBCUT Q24H Sodium Chloride 0.9% [Normal Saline] 1,000 ml IV ASDIRECTED 07/15/19 06:00 BASIC METABOLIC PANEL,BMP [CHEM] Routine CBC WITH AUTO DIFF [HEME] Routine CULTURE SPUTUM + SMEAR [RM] Routine 07/15/19 Breakfast Heart Healthy Diet [DIET]
[2019-07-14] MEDS: Enoxaparin 40 MG/0.4 ML Syringe SUBCUT SCH (22:39)
[2019-07-14] MEDS: Sodium Chloride 0.9% 1,000 ML IV SCH (22:43)
[2019-07-14] MEDS: Piperacillin/Tazobactam 4.5 GM in Sodium Chloride 0.9% 100 ML IV SCH (22:43)
[2019-07-15] MEDS: Acetaminophen/oxyCODONE 325-5 MG Tab PO PRN ×2 (03:47→08:06)
[2019-07-15] MEDS: Piperacillin/Tazobactam 4.5 GM in Sodium Chloride 0.9% 100 ML IV SCH ×3 (03:52→16:20)
[2019-07-15] MEDS: Pantoprazole 40 MG Tab.CR PO SCH ×2 (06:21→06:50)
[2019-07-15] MEDS: Sodium Chloride 0.9% 1,000 ML IV SCH (08:02)
[2019-07-15] MEDS: Losartan 100 MG Tab PO SCH (08:47)
[2019-07-15] MEDS: Furosemide 40 MG Tab PO SCH (08:48)
[2019-07-15] MEDS: Gabapentin 300 MG Cap PO SCH ×2 (08:54→21:14)
[2019-07-15] MEDS ORDERED: Hydrochlorothiazide 25 MG Tab PO SCH (09:00)
[2019-07-15] MEDS ORDERED: metFORMIN 500 MG Tab PO SCH (09:00)
[2019-07-15] MEDS ORDERED: Multivitamin Tab PO SCH (09:00)
[2019-07-15] MEDS ORDERED: Celecoxib 200 MG Cap PO SCH (09:00)
[2019-07-15] MEDS ORDERED: Albuterol 0.083% 2.5 MG/3 ML Neb Soln NEB PRN (09:51)
[2019-07-15] MEDS ORDERED: Acetaminophen/oxyCODONE 325-5 MG Tab PO PRN (11:48)
[2019-07-15] MEDS ORDERED: Furosemide 40 MG/4 ML VIAL IVPUSH ONE (11:49)
[2019-07-15] MEDS: DULoxetine 30 MG Cap PO SCH ×2 (11:50→20:55)
[2019-07-15] MEDS: Saccharomyces Boulardii (Probiotic) 250 MG Cap PO SCH ×2 (11:51→20:58)
[2019-07-15] MEDS: Albuterol/Ipratropium 3.0-0.5 MG/3 ML Neb Soln NEB PRN ×2 (11:55→21:31)
[2019-07-15] MEDS: Sodium Chloride 0.9% 10 ML Syringe FLUSH PRN ×6 (12:04→21:22)
[2019-07-15] MEDS: Benzonatate 100 MG Cap PO SCH ×2 (13:51→21:00)
[2019-07-15] MEDS: Acetaminophen 500 MG Tab PO SCH ×3 (13:51→20:59)
[2019-07-15] MEDS: Ketorolac 30 MG/ML SDV IVPUSH PRN (14:03)
--- NOTE | 2019-07-15 17:45 | PCM.HP.2 ---
H&P History of Present Illness - General Date of Service: 07/15/19 Admit Problem/Dx: Admission Diagnosis/Problem Admission Diagnosis/Problem Pneumonia Source of Information: Patient, Family, Provider - History of Present Illness Initial Comments - Free Text/Narative: ER Note: Patient presented to the ED because of left sided rib pain. He was diagnosed with pneumonia and spontaneous rib fracture on 06/26/19. He was treated with [place] and doxycycline which didn't help as outpatient. He went to follow up with his medical provider on 07/11/19 and 07/14/19 and a repeat chest xray did show increase infiltrate. He was then started on duricef and apparently tonight he has persistent cough and dyspneic although his oxygen saturation was 95% on RA. There is no fever or chills, N/V/D. He was recently tested for Covid-19 which was negative. This morning he states that his breathing is better, feels a little foggy in his thinking. States it started when he was put on [place], also having constipation from this. He has taken Omeprazole for years for gastris/reflux symptoms with calcium with vitamin D3 500 mg daily. He has had rib fracture before from rolling his 4-cam[place]. Constipated, no nausea or vomiting. Ice works better than heat for his pain. No bruising. Left Chest Pain Score (Numeric/FACES): 5 - Related Data Allergies/Adverse Reactions: Allergies Allergy/AdvReac Type Severity Reaction Status Date / Time BARLEY GRAIN Allergy Difficulty Uncoded 07/14/19 20:54 Breathing Home Medications: Home Meds Omeprazole 20 mg PO DAILY 09/13/16 [History] Loratadine 10 mg PO DAILY PRN 09/23/16 [History] Multivitamin [Daily Jorge] 1 tab PO DAILY 09/23/16 [History] Celecoxib [CeleBREX] 200 mg PO DAILY #30 cap 10/30/16 [Rx] Finasteride [Proscar] 5 mg PO BEDTIME #30 tablet 10/30/16 [Rx] Magnesium Hydroxide [Milk of Magnesia] 30 ml PO DAILY PRN #0 cup 10/30/16 [Rx] Tamsulosin [Flomax] 0.4 mg PO DAILY@1999 #30 cap.er 10/30/16 [Rx] Acetaminophen/HYDROcodone [[place] 325-5 MG] 1 - 2 tab PO Q6H PRN #16 tab [Rx] Cefadroxil [Duricef] 500 mg PO BID 07/14/19 [History] Furosemide [Lasix] 40 mg PO DAILY 07/14/19 [History] Gabapentin [Neurontin] 300 mg PO BID 07/14/19 [History] Hydrocortisone Acetate [Hydrocortisone Acetate 1% Crm] 1 applic TOP BID PRN 12/24 [History] Losartan [Cozaar] 100 mg PO DAILY 07/14/19 [History] guaiFENesin/Dextromethorphan [Mucinex Dm ER 1,200-60 mg Tab] 1 each PO Q12H PRN 07/14/19 [History] hydroCHLOROthiazide [Hydrochlorothiazide] 25 mg PO DAILY 07/14/19 [History] traZODone 150 mg PO BEDTIME 07/14/19 [History] Albuterol Sulfate [Proair Hfa] 2 puff INH Q6H PRN 07/15/19 [History] Albuterol [Proventil Neb Soln] 3 ml INH Q6H PRN 07/15/19 [History] DULoxetine [Cymbalta] 30 mg PO BID 07/15/19 [History] FLUoxetine HCl [Fluoxetine HCl] 20 mg PO WITHDINNER 07/15/19 [History] metFORMIN HCl [Metformin HCl ER] 1,000 mg PO WITHDINNER 07/15/19 [History] Past Medical History HEENT History: Reports: Epistaxis, Hard of Hearing, Impaired Vision, Otitis Media, Sinusitis Cardiovascular History: Reports: Afib, Hypertension, SOB on Exertion Respiratory History: Reports: Bronchitis, Recurrent, SOB Other Respiratory History: fx ribs Gastrointestinal History: Reports: GERD, Hemorrhoids, Other (See Below) Other Gastrointestinal History: OBESITY Genitourinary History: Reports: UTI, Recurrent Musculoskeletal History: Reports: Arthritis, Back Pain, Chronic, Fracture, Osteoarthritis Neurological History: Reports: None Psychiatric History: Reports: Depression Endocrine/Metabolic History: Reports: Obesity/BMI 30+ Hematologic History: Reports: None Oncologic (Cancer) History: Reports: None Dermatologic History: Reports: Other (See Below) Other Dermatologic History: 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 KNEE REPLACEMENTS, BUNIONECTOMY ON LEFT FOOT, BACK SURGERY Dermatological Surgical History: Reports: None Social & Family History - Family History Family Medical History: Noncontributory Musculoskeletal: Reports: Arthritis Psychiatric: Reports: Anxiety, Depression - Tobacco Use Smoking Status *Q: Never Smoker Second Hand Smoke Exposure: No - Caffeine Use Caffeine Use: Reports: Soda Other Caffeine Use: ABOUT 3 CANS COKE PER DAY. Caffeine Use Comment: Drinks coke everyday - Recreational Drug Use Recreational Drug Use: No H&P Review of Systems - Review of Systems: Review Of Systems: See Below General: Reports: No Symptoms Pulmonary: Reports: Shortness of Breath (improved), Pleuritic Chest Pain, Cough. Denies: Wheezing, Sputum Cardiovascular: Reports: Edema. Denies: Chest Pain, Palpitations Gastrointestinal: Reports: Constipation. Denies: Abdominal Pain, Diarrhea, Nausea, Vomiting Genitourinary: Reports: No Symptoms Skin: Reports: No Symptoms Neurological: Reports: Other (Feeling foggy) Exam - Exam Exam: See Below - Vital Signs Vital Signs: Last Vital Signs Temp 98.0 F 07/15/19 16:30 Pulse 89 07/15/19 16:30 Resp 20 07/15/19 16:30 BP 134/85 07/15/19 16:30 Pulse Ox 91 L 07/15/19 16:30 Weight: 346 lb - Exam General: Alert, Oriented, Cooperative, Mild Distress Lungs: Decreased Breath Sounds, Crackles (LLL, wet respirations throughout), Other (TTP left lower rib cage, no ecchymosis present.). No: Wheezing Cardiovascular: Regular Rate, Regular Rhythm GI/Abdominal Exam: Normal Bowel Sounds, Soft, Non-Tender, No Distention, Other ( subcutaneous edema) Extremities: Pedal Edema (2+ extends up to groin, stasis dermatitis present BLE) - Patient Data Lab Results Last 24 hrs: Laboratory Results - last 24 hr 07/14/19 07/14/19 07/14/19 Range/Units 20:55 20:55 20:55 WBC 10.6 (4.5-12.0) X10-3/uL RBC 3.72 L (4.30-5.75) x10(6)uL Hgb 11.8 L (13.5-17.8) g/dL Hct 35.2 (30.0-51.3) % MCV 94.6 (80-96) fL MCH 31.6 (27.7-33.6) pg MCHC 33.4 (32.2-35.4) g/dL RDW 13.3 (11.5-15.5) % Plt Count 525 H (125-369) X10(3)uL MPV 6.3 L (7.4-10.4) fL Neut % (Auto) 74.6 (46-82) % Lymph % (Auto) 12.7 L (13-37) % Clinton % (Auto) 9.3 (4-12) % Eos % (Auto) 3 (1.0-5.0) % Baso % (Auto) 1 (0-2) % Neut # (Auto) 7.9 (1.6-8.3) # Lymph # (Auto) 1.3 (0.6-5.0) # Clinton # (Auto) 1.0 (0.0-1.3) # Eos # (Auto) 0.3 (0.0-0.8) # Baso # (Auto) 0.1 (0.0-0.2) # Sodium 141 (135-145) mmol/L Potassium 4.0 (3.5-5.3) mmol/L Chloride 103 (100-110) mmol/L Carbon Dioxide 32 (21-32) mmol/L BUN 15 (7-18) mg/dL Creatinine 1.1 (0.70-1.30) mg/dL Est Cr Clr Drug Dosing TNP Estimated GFR (MDRD) > 60 (>60) BUN/Creatinine Ratio 13.6 (9-20) Glucose 121 H (80-116) mg/dL Lactic Acid 1.1 (0.4-2.0) mmol/L Calcium 9.1 (8.6-10.2) mg/dL Total Bilirubin 0.6 (0.1-1.3) mg/dL AST 40 H (5-25) IU/L ALT 46 H (12-36) U/L Alkaline Phosphatase 123 H (56-112) IU/L Total Protein 7.1 (6.0-8.0) g/dL Albumin 2.7 L (3.2-4.6) g/dL Globulin 4.4 g/dL Albumin/Globulin Ratio 0.6 07/15/19 07/15/19 Range/Units 06:30 06:30 WBC 9.0 (4.5-12.0) X10-3/uL RBC 3.23 L (4.30-5.75) x10(6)uL Hgb 11.2 L (13.5-17.8) g/dL Hct 31.8 (30.0-51.3) % MCV 98.6 H (80-96) fL MCH 34.7 H (27.7-33.6) pg MCHC 35.1 (32.2-35.4) g/dL RDW 13.2 (11.5-15.5) % Plt Count 423 H (125-369) X10(3)uL MPV 7.0 L (7.4-10.4) fL Neut % (Auto) 75.3 (46-82) % Lymph % (Auto) 12.1 L (13-37) % Clinton % (Auto) 9.2 (4-12) % Eos % (Auto) 3 (1.0-5.0) % Baso % (Auto) 1 (0-2) % Neut # (Auto) 6.8 (1.6-8.3) # Lymph # (Auto) 1.1 (0.6-5.0) # Clinton # (Auto) 0.8 (0.0-1.3) # Eos # (Auto) 0.3 (0.0-0.8) # Baso # (Auto) 0.0 (0.0-0.2) # Sodium 141 (135-145) mmol/L Potassium 4.2 (3.5-5.3) mmol/L Chloride 105 (100-110) mmol/L Carbon Dioxide 31 (21-32) mmol/L BUN 17 (7-18) mg/dL Creatinine 1.0 (0.70-1.30) mg/dL Est Cr Clr Drug Dosing 71.25 Estimated GFR (MDRD) > 60 (>60) BUN/Creatinine Ratio 17.0 (9-20) Glucose 110 (80-116) mg/dL Lactic Acid (0.4-2.0) mmol/L Calcium 8.6 (8.6-10.2) mg/dL Total Bilirubin (0.1-1.3) mg/dL AST (5-25) IU/L ALT (12-36) U/L Alkaline Phosphatase (56-112) IU/L Total Protein (6.0-8.0) g/dL Albumin (3.2-4.6) g/dL Globulin g/dL Albumin/Globulin Ratio Result Diagrams: 07/15/19 06:30 07/15/19 06:30 Sepsis Event Note - Evaluation Sepsis Screening Result: No Definite Risk - Focused Exam Vital Signs: Vital Signs Temp Pulse Resp BP BP BP Pulse Ox 07/15/19 16:30 98.0 F 89 20 134/85 91 L 07/15/19 12:00 98.0 F 88 24 H 145/72 H 95 07/15/19 11:55 88 07/15/19 08:47 155/78 H 07/15/19 07:55 97.6 F 86 24 H 155/78 H 94 L Date Exam was Performed: 07/15/19 Time Exam was Performed: 18:28 - Problem List (1) Pneumonia SNOMED Code(s): 688149380 ICD Code: J18.9 - PNEUMONIA, UNSPECIFIED ORGANISM Status: Acute Current Visit: Yes Qualifiers: Laterality: left (2) Rib fracture SNOMED Code(s): 60439574 ICD Code: S22.39XA - FRACTURE OF ONE RIB, UNSP SIDE, INIT FOR CLOS FX Status: Acute Current Visit: Yes Qualifiers: Encounter type: subsequent encounter Laterality: left (3) Peripheral edema SNOMED Code(s): 801309896 ICD Code: R60.9 - EDEMA, UNSPECIFIED Status: Acute Current Visit: No Problem Details: Bilateral legs, abdomen: refused EBONY wraps/Compression stockings. DC HCTZ Lasix 40 mg daily, extra dose today. (4) Diabetes SNOMED Code(s): 39320678 ICD Code: E11.9 - TYPE 2 DIABETES MELLITUS WITHOUT COMPLICATIONS Status: Chronic Current Visit: Yes Qualifiers: Diabetes mellitus type: type 2 (5) Reflux gastritis SNOMED Code(s): 39699688, 84450828 ICD Code: K29.60 - OTHER GASTRITIS WITHOUT BLEEDING Status: Chronic Current Visit: Yes (6) BPH (benign prostatic hyperplasia) SNOMED Code(s): 273863215 ICD Code: N40.0 - BENIGN PROSTATIC HYPERPLASIA WITHOUT LOWER URINRY TRACT SYMP Status: Chronic Current Visit: No Problem List Initiated/Reviewed/Updated: Yes Orders Last 24hrs: Active Orders 24 hr Category Date Time Status Patient Status [ADT] Routine ADT 07/15/19 11:59 Active Antiembolic Devices [RC] .Routine Care 07/15/19 08:14 Inactive Communication Order [RC] ASDIRECTED Care 07/15/19 14:10 Active Oxygen Therapy [RC] PRN Care 07/14/19 21:33 Active RT Aerosol Therapy [RC] ASDIRECTED Care 07/14/19 20:53 Active Up With Assistance [RC] ASDIRECTED Care 07/14/19 21:33 Active Vital Signs [RC] 08,12,16,20,00,04 Care 07/14/19 21:33 Active OT Evaluation and Treatment [CONS] Routine Cons 07/15/19 16:31 Active PT Evaluation and Treatment [CONS] Routine Cons 07/15/19 16:31 Active Consistent Carbohydrate Diet [DIET] Diet 07/15/19 Dinner Active BASIC METABOLIC PANEL,BMP [CHEM] Routine Lab 07/16/19 06:00 Ordered CBC WITH AUTO DIFF [HEME] Routine Lab 07/16/19 06:00 Ordered CULTURE BLOOD [BC] Urgent Lab 07/14/19 20:55 Received CULTURE BLOOD [BC] Urgent Lab 07/14/19 21:10 Received CULTURE SPUTUM + SMEAR [RM] Routine Lab 07/15/19 06:00 Ordered Acetaminophen [Tylenol Extra Strength] Med 07/15/19 13:00 Active 500 mg PO QID Acetaminophen/oxyCODONE [Percocet 325-5 MG] Med 07/15/19 11:48 Active 1 tab PO Q6H PRN Albuterol [Proventil Neb Soln] Med 07/15/19 09:51 Active 2.5 mg NEB Q2H PRN Albuterol/Ipratropium [DuoNeb 3.0-0.5 MG/3 ML] Med 07/14/19 20:51 Active 3 ml NEB Q6H PRN Benzonatate [Tessalon Perles] Med 07/15/19 14:00 Active 100 mg PO TID Celecoxib [CeleBREX] Med 07/15/19 09:00 Hold 200 mg PO DAILY DULoxetine [Cymbalta] Med 07/15/19 10:00 Active 30 mg PO BID Docusate Sodium [Colace] Med 07/14/19 21:33 Active 100 mg PO BID PRN Enoxaparin [Lovenox] Med 07/14/19 21:45 Active 40 mg SUBCUT Q24H FLUoxetine [PROzac] Med 07/15/19 18:00 Active 20 mg PO WITHDINNER Finasteride [Proscar] Med 07/15/19 21:00 Active 5 mg PO BEDTIME Furosemide [Lasix] Med 07/15/19 09:00 Active 40 mg PO DAILY Gabapentin [Neurontin] Med 07/15/19 09:00 Active 300 mg PO BID Hydrocortisone Acetate [Hydrocortisone Acetate 1% Crm] Med 07/14/19 22:00 Active 0 gm TOP BID PRN Ketorolac [Toradol] Med 07/15/19 12:00 Active 30 mg IVPUSH Q6H PRN Loratadine [Claritin] Med 07/14/19 22:00 Active 10 mg PO DAILY PRN Losartan [Cozaar] Med 07/15/19 09:00 Active 100 mg PO DAILY Magnesium Hydroxide [Milk of Magnesia] Med 07/14/19 22:00 Active 30 ml PO DAILY PRN Multivitamins [Tab-A-Jorge] Med 07/16/19 12:00 Active 1 tab PO DAILY@1200 Ondansetron [Zofran] Med 07/14/19 21:33 Active 4 mg IV Q4H PRN Pantoprazole [ProTONIX] Med 07/15/19 07:30 Active 40 mg PO ACBREAKFAST Piperacillin/Tazobactam [Zosyn] 4.5 gm Med 07/14/19 21:45 Active Sodium Chloride 0.9% [Normal Saline] 100 ml IV Q6H Pneumococcal Polyvalent-23 Vac [Pneumovax 23] Med 07/17/19 23:12 Once 0.5 ml IM .ONCE ONE Saccharomyces Boulardii [Florastor] Med 07/15/19 10:00 Active 250 mg PO BID Sodium Chloride 0.9% [Saline Flush] Med 07/14/19 20:49 Active 10 ml FLUSH ASDIRECTED PRN Tamsulosin [Flomax] Med 07/15/19 20:00 Active 0.4 mg PO DAILY@1999 bisacodyL [Dulcolax] Med 07/14/19 21:33 Active 5 mg PO DAILY PRN diphenhydrAMINE [Benadryl] Med 07/15/19 11:57 Active 25 mg PO Q4H PRN metFORMIN [Glucophage XR] Med 07/15/19 18:00 Active 1,000 mg PO WITHDINNER traZODone Med 07/15/19 21:00 Active 150 mg PO BEDTIME Blood Culture x2 Reflex Set [OM.PC] Urgent Oth 07/14/19 20:50 Ordered Saline Lock Insert [OM.PC] Routine Oth 07/14/19 20:49 Ordered Code Status [Resuscitation Status] Stat Resus Stat 07/14/19 21:52 Ordered Medication Orders Acetaminophen (Tylenol Extra Strength) 500 mg PO QID [facility] Last Admin: 07/15/19 16:37 Dose: 500 mg Admin: 07/15/19 13:51 Dose: 500 mg Albuterol (Proventil Neb Soln) 2.5 mg NEB Q2H PRN PRN Reason: Dyspnea Albuterol/Ipratropium (Duoneb 3.0-0.5 Mg/3 Ml) 3 ml NEB Q6H PRN PRN Reason: Dyspnea Last Admin: 07/15/19 11:55 Dose: 3 ml Benzonatate (Tessalon Perles) 100 mg PO TID [facility] Last Admin: 07/15/19 13:51 Dose: 100 mg Bisacodyl (Dulcolax) 5 mg PO DAILY PRN PRN Reason: Constipation Celecoxib (Celebrex) 200 mg PO DAILY [facility] Last Admin: 07/15/19 08:48 Dose: 200 mg Diphenhydramine HCl (Benadryl) 25 mg PO Q4H PRN PRN Reason: Itching Docusate Sodium (Colace) 100 mg PO BID PRN PRN Reason: Constipation Duloxetine HCl (Cymbalta) 30 mg PO BID [facility] Last Admin: 07/15/19 11:50 Dose: 30 mg Enoxaparin Sodium (Lovenox) 40 mg SUBCUT Q24H [facility] Last Admin: 07/14/19 22:39 Dose: 40 mg Finasteride (Proscar) 5 mg PO BEDTIME [facility] Fluox[facility]) [facility] Furosemide (Lasix) 40 mg PO DAILY [facility] Last Admin: 07/15/19 08:48 Dose: 40 mg Gabapentin (Neurontin) 300 mg PO BID [facility] Last Admin: 07/15/19 08:54 Dose: 300 mg Hydrocortisone Acetate (Hydrocortisone Acetate 1% Crm) 0 gm TOP BID PRN PRN Reason: Rash Piperacillin Sod/Tazobactam (Sod 4.5 gm/ Sodium Chloride) 100 mls @ 200 mls/hr IV Q6H [facility] Last Admin: 07/15/19 16:20 Dose: 200 mls/hr Admin: 07/15/19 09:59 Dose: 200 mls/hr Admin: 07/15/19 03:52 Dose: 200 mls/hr Admin: 07/14/19 22:43 Dose: 200 mls/hr Ketorolac Tromethamine (Toradol) 30 mg IVPUSH Q6H PRN PRN Reason: MODERATE PAIN (4-6/10) Last Admin: 07/15/19 14:03 Dose: 30 mg Loratadine (Claritin) 10 mg PO DAILY PRN PRN Reason: Allergies Losartan Potassium (Cozaar) 100 mg PO DAILY [facility] Last Admin: 07/15/19 08:47 Dose: 100 mg Magnesium Hydroxide (Milk Of Magnesia) 30 ml PO DAILY PRN PRN Reason: Constipation Metformin HCl (Glucophage Xr) 1,000 mg PO [facility] Multivitamins/Minerals/Vitamin C (Tab-A-Jorge) 1 tab PO DAILY@1200 [facility] Ondansetron HCl (Zofran) 4 mg IV Q4H PRN PRN Reason: Nausea/Vomiting Oxycodone/Acetaminophen (Percocet 325-5 Mg) 1 tab PO Q6H PRN PRN Reason: SEVERE PAIN (7-10/10) Pantoprazole Sodium (Protonix) 40 mg PO ACBREAKFAST [facility] Last Admin: 07/15/19 06:50 Dose: Admin: 07/15/19 06:21 Dose: 40 mg Pneumococcal Polyvalent Vaccine (Pneumovax 23) 0.5 ml IM .ONCE ONE Stop: 07/17/19 23:13 Saccharomyces Boulardii (Florastor) 250 mg PO BID [facility] Last Admin: 07/15/19 11:51 Dose: 250 mg Sodium Chloride (Saline Flush) 10 ml FLUSH ASDIRECTED PRN PRN Reason: Keep Vein Open Last Admin: 07/15/19 16:57 Dose: 10 ml Admin: 07/15/19 16:18 Dose: 10 ml Admin: 07/15/19 14:03 Dose: 10 ml Admin: 07/15/19 12:04 Dose: 10 ml Admin: 07/14/19 22:43 Dose: 10 ml Admin: 07/14/19 21:04 Dose: 10 ml Admin: 07/14/19 20:55 Dose: 10 ml Tamsulosin HCl (Flomax) 0.4 mg PO DAILY@1999 [facility] Trazodone HCl (Trazodone) 150 mg PO BEDTIME [facility] Assessment/Plan Comment:: 1. Admit for LLL pneumonia with rib fractures(06/26/2019). 2. Zosyn day 1, Tessalon Perles 100 mg tid for cough. Florastor 250 mg bid. 3. Pain control: Toradol 30 mg IV [id number] with scheduled Tylenol 500 mg qid. Percocet 1 tablet every 6 hrs as needed breakthrough pain. Ice as needed. 4. Diabetic diet, continue Metformin. Accuchecks bid. 5. DVT prophylaxis: Lovenox 40 mg daily. 6. Deconditioning: PT/OT consult. His Corazon states that since he was in hospital for leg infection he hardly walks at home and easily gets short of breath, scared to get up and walk. 7. GI prophylaxis: Pantoprazole per formulary. Will change his Calcium to at noon for better absorption. 8. CODE STATUS: DNR/DNI. - Mortality Measure Prognosis:: Good
[2019-07-15] MEDS: diphenhydrAMINE 25 MG Cap PO PRN (18:47)
[2019-07-15] MEDS: metFORMIN 500 MG Tab.ER PO SCH (18:48)
[2019-07-15] MEDS: FLUoxetine 20 MG Cap PO SCH (18:49)
[2019-07-15] MEDS: Tamsulosin 0.4 MG Cap.ER PO SCH (20:54)
[2019-07-15] MEDS: traZODone 50 MG Tab PO SCH (21:01)
[2019-07-15] MEDS: Enoxaparin 40 MG/0.4 ML Syringe SUBCUT SCH (21:01)
[2019-07-15] MEDS: Finasteride 5 MG Tab PO SCH (21:02)
[2019-07-15] MEDS: cefTRIAXone 2 GM Vial IVPUSH SCH (21:15)
[2019-07-15] MEDS: Azithromycin 500 MG in Sodium Chloride 0.9% 250 ML IV SCH (21:17)
[2019-07-16] MEDS: Ketorolac 30 MG/ML SDV IVPUSH PRN ×3 (02:12→17:59)
[2019-07-16] MEDS: Sodium Chloride 0.9% 10 ML Syringe FLUSH PRN ×4 (02:13→20:52)
[2019-07-16] MEDS: Albuterol/Ipratropium 3.0-0.5 MG/3 ML Neb Soln NEB PRN ×2 (05:00→21:01)
[2019-07-16] MEDS: Pantoprazole 40 MG Tab.CR PO SCH (06:31)
[2019-07-16] MEDS: Benzonatate 100 MG Cap PO SCH (08:53)
[2019-07-16] MEDS: DULoxetine 30 MG Cap PO SCH ×2 (08:53→20:36)
[2019-07-16] MEDS: Acetaminophen 500 MG Tab PO SCH ×4 (08:53→20:37)
[2019-07-16] MEDS: Saccharomyces Boulardii (Probiotic) 250 MG Cap PO SCH ×2 (08:53→20:36)
[2019-07-16] MEDS: Gabapentin 300 MG Cap PO SCH ×2 (08:53→20:50)
[2019-07-16] MEDS: Furosemide 40 MG Tab PO SCH (08:53)
[2019-07-16] MEDS: Losartan 100 MG Tab PO SCH (09:15)
--- NOTE | 2019-07-16 10:26 | PCM.PN ---
- General Info Date of Service: 07/16/19 Admission Dx/Problem (Free Text): States his breathing & pain is better but was itching overnight, had to get up and take a shower. He had 2 episodes of itching yesterday about 30min-1 hour after his Zosyn doses so this was discontinued and changed to Rocephin and Azithromycin. Takes Loratadine daily as needed for itching at home. States the Tessalon Perles are not helping his cough, he did have improvement as outpatient with Robitussin DM and is ok with taking syrup form. He has not had BM since admission, takes MiraLAX at home daily. - Patient Data Vitals - Most Recent: Last Vital Signs Temp 98 F 07/16/19 04:00 Pulse 94 07/16/19 05:01 Resp 20 07/16/19 04:00 BP 147/94 H 07/16/19 09:15 Pulse Ox 94 L 07/16/19 04:00 Weight - Most Recent: 346 lb I&O - Last 24 Hours: Intake & Output 07/15/19 07/16/19 07/16/19 22:59 06:59 14:59 Intake Total 340 Balance 340 Lab Results Last 24 Hours: Laboratory Results - last 24 hr 07/16/19 07/16/19 07/16/19 Range/Units 05:21 06:15 06:15 WBC 6.8 (4.5-12.0) X10-3/uL RBC 3.52 L (4.30-5.75) x10(6)uL Hgb 11.0 L (13.5-17.8) g/dL Hct 32.8 (30.0-51.3) % MCV 93.3 (80-96) fL MCH 31.2 (27.7-33.6) pg MCHC 33.4 (32.2-35.4) g/dL RDW 13.5 (11.5-15.5) % Plt Count 416 H (125-369) X10(3)uL MPV 6.5 L (7.4-10.4) fL Neut % (Auto) 65.4 (46-82) % Lymph % (Auto) 17.9 (13-37) % [place] % (Auto) 11.3 (4-12) % Eos % (Auto) 5 (1.0-5.0) % Baso % (Auto) 1 (0-2) % Neut # (Auto) 4.5 (1.6-8.3) # Lymph # (Auto) 1.2 (0.6-5.0) # [place] # (Auto) 0.8 (0.0-1.3) # Eos # (Auto) 0.3 (0.0-0.8) # Baso # (Auto) 0.0 (0.0-0.2) # Sodium 143 (135-145) mmol/L Potassium 3.8 (3.5-5.3) mmol/L Chloride 104 (100-110) mmol/L Carbon Dioxide 34 H (21-32) mmol/L BUN 18 (7-18) mg/dL Creatinine 1.1 (0.70-1.30) mg/dL Est Cr Clr Drug Dosing 64.77 mL/min Estimated GFR (MDRD) > 60 (>60) BUN/Creatinine Ratio 16.4 (9-20) Glucose 107 (80-116) mg/dL POC Glucose 97 (80-116) mg/dL Calcium 8.7 (8.6-10.2) mg/dL Endy Results Last 24 Hours: Microbiology 07/14/19 21:10 Aerobic Blood Culture - Preliminary Blood - Venous - Lab Draw NO GROWTH AFTER 1 DAY Anaerobic Blood Culture - Preliminary NO GROWTH AFTER 1 DAY 07/14/19 20:55 Aerobic Blood Culture - Preliminary Blood - Venous NO GROWTH AFTER 1 DAY Anaerobic Blood Culture - Preliminary NO GROWTH AFTER 1 DAY Med Orders - Current: Current Medications Acetaminophen (Tylenol Extra Strength) 500 mg PO QID [facility] Last Admin: 07/16/19 08:53 Dose: 500 mg Albuterol (Proventil Neb Soln) 2.5 mg NEB Q2H PRN PRN Reason: Dyspnea Albuterol/Ipratropium (Duoneb 3.0-0.5 Mg/3 Ml) 3 ml NEB Q6H PRN PRN Reason: Dyspnea Last Admin: 07/16/19 05:00 Dose: 3 ml Bisacodyl (Dulcolax) 5 mg PO DAILY PRN PRN Reason: Constipation Calcium Carbonate/Glycine (Oyster Shell Calcium) 500 mg PO DAILY@1200 [facility] Ceftriaxone Sodium (Rocephin) 2 gm IVPUSH Q24H [facility] Last Admin: 07/15/19 21:15 Dose: 2 gm Celecoxib (Celebrex) 200 mg PO DAILY [facility] Last Admin: 07/15/19 08:48 Dose: 200 mg Diphenhydramine HCl (Benadryl) 25 mg PO Q4H PRN PRN Reason: Itching Last Admin: 07/15/19 18:47 Dose: 25 mg Docusate Sodium (Colace) 100 mg PO BID PRN PRN Reason: Constipation Duloxetine HCl (Cymbalta) 30 mg PO BID [facility] Last Admin: 07/16/19 08:53 Dose: 30 mg Enoxaparin Sodium (Lovenox) 40 mg SUBCUT Q24H [facility] Last Admin: 07/15/19 21:01 Dose: 40 mg Finasteride (Proscar) 5 mg PO BEDTIME [facility] Last Admin: 07/15/19 21:02 Dose: 5 mg Fluoxetine HCl (Prozac) 20 mg PO WITHDINNER [facility] Last Admin: 07/15/19 18:49 Dose: 20 mg Furosemide (Lasix) 40 mg PO BID [facility] Gabapentin (Neurontin) 300 mg PO BID [facility] Last Admin: 07/16/19 08:53 Dose: 300 mg Guaifenesin/Phenylephrine HCl (Robitussin Dm) 10 ml PO Q4H PRN PRN Reason: Cough Hydrocortisone Acetate (Hydrocortisone Acetate 1% Crm) 0 gm TOP BID PRN PRN Reason: Rash Azithromycin 500 mg/ Sodium (Chloride) 250 mls @ 250 mls/hr IV Q24H [facility] Last Admin: 07/15/19 21:17 Dose: 250 mls/hr Ketorolac Tromethamine (Toradol) 30 mg IVPUSH Q6H PRN PRN Reason: MODERATE PAIN (4-6/10) Last Admin: 07/16/19 08:33 Dose: 30 mg Loratadine (Claritin) 10 mg PO DAILY PRN PRN Reason: Allergies Losartan Potassium (Cozaar) 100 mg PO DAILY [facility] Last Admin: 07/16/19 09:15 Dose: 100 mg Magnesium Hydroxide (Milk Of Magnesia) 30 ml PO DAILY PRN PRN Reason: Constipation Metformin HCl (Glucophage Xr) 1,000 mg PO WITHDINNER [facility] Last Admin: 07/15/19 18:48 Dose: 1,000 mg Multivitamins/Minerals/Vitamin C (Tab-A-Jorge) 1 tab PO DAILY@1200 [facility] Oxycodone/Acetaminophen (Percocet 325-5 Mg) 1 tab PO Q6H PRN PRN Reason: SEVERE PAIN () Pantoprazole Sodium (Protonix) 40 mg PO ACBREAKFAST [facility] Last Admin: 07/16/19 06:31 Dose: 40 mg Pneumococcal Polyvalent Vaccine (Pneumovax 23) 0.5 ml IM .ONCE ONE Stop: 07/17/19 23:13 Polyethylene Glycol (Miralax) 17 gm PO DAILY [facility] Saccharomyces Boulardii (Florastor) 250 mg PO BID [facility] Last Admin: 07/16/19 08:53 Dose: 250 mg Sodium Chloride (Saline Flush) 10 ml FLUSH ASDIRECTED PRN PRN Reason: Keep Vein Open Last Admin: 07/16/19 08:35 Dose: 10 ml Tamsulosin HCl (Flomax) 0.4 mg PO DAILY@2000 [facility] Last Admin: 07/15/19 20:54 Dose: 0.4 mg Trazodone HCl (Trazodone) 150 mg PO BEDTIME [facility] Last Admin: 07/15/19 21:01 Dose: 150 mg Discontinued Medications Albuterol (Proventil Neb Soln) 2.5 mg NEB Q2H PRN PRN Reason: Dyspnea Benzonatate (Tessalon Perles) 100 mg PO TID [facility] Last Admin: 07/16/19 08:53 Dose: 100 mg Furosemide (Lasix) 40 mg PO DAILY [facility] Last Admin: 07/16/19 08:53 Dose: 40 mg Furosemide (Lasix) 40 mg IVPUSH ONETIME ONE Stop: 07/15/19 11:50 Last Admin: 07/15/19 12:05 Dose: 40 mg Hydrochlorothiazide (Hydrochlorothiazide) 25 mg PO DAILY [facility] Last Admin: 07/15/19 08:47 Dose: 25 mg Sodium Chloride (Normal Saline) 1,000 mls @ 125 mls/hr IV ASDIRECTED [facility] Last Admin: 07/15/19 08:02 Dose: 125 mls/hr Piperacillin Sod/Tazobactam (Sod 4.5 gm/ Sodium Chloride) 100 mls @ 200 mls/hr IV Q6H [facility] Last Admin: 07/15/19 16:20 Dose: 200 mls/hr Ketorolac Tromethamine (Toradol) 30 mg IVPUSH Q8H PRN PRN Reason: Pain Stop: 07/19/19 20:52 Last Admin: 07/14/19 21:04 Dose: 30 mg Morphine Sulfate (Morphine) 4 mg IVPUSH Q4H PRN PRN Reason: Pain Last Admin: 07/14/19 20:55 Dose: 4 mg Morphine Sulfate (Morphine) Confirm Administered Dose 2 mg .ROUTE .STK-MED ONE Stop: 07/14/19 21:03 Last Admin: 07/14/19 22:08 Dose: Not Given Multivitamins/Minerals/Vitamin C (Tab-A-Jorge) 1 tab PO DAILY [facility] Last Admin: 07/15/19 08:47 Dose: 1 tab Ondansetron HCl (Zofran) 4 mg IV Q4H PRN PRN Reason: Nausea/Vomiting Oxycodone/Acetaminophen (Percocet 325-5 Mg) 2 tab PO Q4H PRN PRN Reason: Pain (moderate 4-6) Last Admin: 07/15/19 08:06 Dose: 2 tab - Exam Quality Assessment: No: Supplemental Oxygen General: Alert, Oriented, Cooperative, No Acute Distress Lungs: Decreased Breath Sounds, Crackles (LLL). No: Wheezing Cardiovascular: Regular Rate, Regular Rhythm GI/Abdominal Exam: Normal Bowel Sounds, Soft, Non-Tender, No Distention, Other ( SQ edema 3/4, area on pannus erythematous & weeping) Extremities: Pedal Edema (3+, area of stasis dermatitis is more erythematous, weeping now secondary to edema.) Skin: Warm, Other (see above note on his legs & abdomen) Psy/Mental Status: Alert, Normal Affect, Normal Mood Sepsis Event Note - Evaluation Sepsis Screening Result: No Definite Risk - Focused Exam Vital Signs: Vital Signs Temp Pulse Pulse Resp BP BP Pulse Ox 07/16/19 09:15 147/94 H 07/16/19 05:01 94 94 07/16/19 04:00 98 F 98 20 140/89 94 L 07/16/19 00:00 97.7 F 92 20 138/84 93 L Date Exam was Performed: 07/16/19 Time Exam was Performed: 10:20 - Problem List & Annotations (1) Pneumonia SNOMED Code(s): 440257535 Code(s): J18.9 - PNEUMONIA, UNSPECIFIED ORGANISM Status: Acute Current Visit: Yes Qualifiers: Laterality: left (2) Rib fracture SNOMED Code(s): 24699312 Code(s): S22.39XA - FRACTURE OF ONE RIB, UNSP SIDE, INIT FOR CLOS FX Status : Acute Current Visit: Yes Qualifiers: Encounter type: subsequent encounter Rib fracture type: multiple ribs Laterality: left Annotation/Comment:: has visible movement of fractures on inspiration, no open fractures. Given his body habitus, we do not have rib belt large enough to help stablize. Question whether EBONY wrap would give enough compression to be of benefit. (3) Peripheral edema SNOMED Code(s): 556609751 Code(s): R60.9 - EDEMA, UNSPECIFIED Status: Acute Current Visit: No Annotation/Comment:: Bilateral legs, abdomen: refused EBONY wraps/Compression stockings. Advised to ambulate to mobilize fluids. Non-adhesive dressing with Kerlix & EBONY wraps now that legs are weeping secondary to edema. Increase Lasix 40 mg BID, I&O, if not having good output with orals will change to IV. (4) Diabetes SNOMED Code(s): 67386433 Code(s): E11.9 - TYPE 2 DIABETES MELLITUS WITHOUT COMPLICATIONS Status: Chronic Current Visit: Yes Qualifiers: Diabetes mellitus type: type 2 (5) Reflux gastritis SNOMED Code(s): 99486474, 84661228 Code(s): K29.60 - OTHER GASTRITIS WITHOUT BLEEDING Status: Chronic Current Visit: Yes (6) BPH (benign prostatic hyperplasia) SNOMED Code(s): 679070440 Code(s): N40.0 - BENIGN PROSTATIC HYPERPLASIA WITHOUT LOWER URINRY TRACT SYMP Status: Chronic Current Visit: No - Problem List Review Problem List Initiated/Reviewed/Updated: Yes - My Orders Last 24 Hours: My Active Orders 07/15/19 10:00 DULoxetine [Cymbalta] 30 mg PO BID Saccharomyces Boulardii [Florastor] 250 mg PO BID 07/15/19 11:48 Acetaminophen/oxyCODONE [Percocet 325-5 MG] 1 tab PO Q6H PRN 07/15/19 11:57 diphenhydrAMINE [Benadryl] 25 mg PO Q4H PRN 07/15/19 11:59 Patient Status [ADT] Routine 07/15/19 13:00 Acetaminophen [Tylenol Extra Strength] 500 mg PO QID 07/15/19 14:10 Communication Order [RC] ASDIRECTED 07/15/19 16:31 OT Evaluation and Treatment [CONS] Routine PT Evaluation and Treatment [CONS] Routine 07/15/19 18:00 FLUoxetine [PROzac] 20 mg PO WITHDINNER metFORMIN [Glucophage XR] 1,000 mg PO WITHDINNER 07/15/19 18:41 Accu Check [Blood Glucose Check, Bedside] [RC] 0700,1730 07/15/19 20:00 cefTRIAXone [Rocephin] 2 gm IVPUSH Q24H 07/15/19 21:00 Azithromycin [Zithromax] 500 mg Sodium Chloride 0.9% [Normal Saline (AdvBag)] 250 ml IV Q24H 07/15/19 Dinner Consistent Carbohydrate Diet [DIET] 07/16/19 10:05 Dextromethorphan/guaiFENesin [Robitussin DM] 10 ml PO Q4H PRN 07/16/19 10:15 Ambulate [RC] ASDIRECTED 07/16/19 10:16 Intake and Output [RC] QSHIFT PRO B-TYPE NATRIUR PEPT,BNPPRO [CHEM] Routine 07/16/19 10:19 Wound Care [RC] DAILY 07/16/19 12:00 Calcium Carbonate [Oyster Shell Calcium] 500 mg PO DAILY@1200 Multivitamins [Tab-A-Jorge] 1 tab PO DAILY@1200 07/16/19 21:00 Furosemide [Lasix] 40 mg PO BID 07/17/19 09:00 polyethylene glycoL 3350 [MiraLAX] 17 gm PO DAILY 07/17/19 23:12 Pneumococcal Polyvalent-23 Vac [Pneumovax 23] 0.5 ml IM .ONCE ONE 07/18/19 06:00 COMPREHENSIVE METABOLIC PN,CMP [CHEM] Routine - Plan Plan:: 1. Rocephin & Azithromycin day 2, discontinued Zosyn due to itching. Robitussin DM as needed for cough. Florastor 250 mg bid. 2. Pain control: Toradol 30 mg IV [id number] with scheduled Tylenol 500 mg qid. Percocet 1 tablet every 6 hrs as needed breakthrough pain. Ice as needed. 3. Diabetic diet, continue Metformin. Accuchecks bid. 4. DVT prophylaxis: Lovenox 40 mg daily. 5. Deconditioning: PT/OT consult. His Corazon states that since he was in hospital for leg infection he hardly walks at home and easily gets short of breath, scared to get up and walk. Requires motivation to get up and ambulate to help mobilize fluids. Dressing ordered for BLE weeping. 6. GI prophylaxis: Pantoprazole per formulary. Will change his Calcium to at noon for better absorption.
[2019-07-16] MEDS: Calcium Carbonate 500 MG Tablet PO SCH (13:21)
[2019-07-16] MEDS: Multivitamin Tab PO SCH (13:21)
[2019-07-16] MEDS: guaiFENesin/Dextromethorphan 100-10 MG/5 ML Soln 5 ML Cup PO PRN ×2 (17:58→23:06)
[2019-07-16] MEDS: metFORMIN 500 MG Tab.ER PO SCH (17:58)
[2019-07-16] MEDS: FLUoxetine 20 MG Cap PO SCH (17:58)
[2019-07-16] MEDS: Tamsulosin 0.4 MG Cap.ER PO SCH (20:35)
[2019-07-16] MEDS: traZODone 50 MG Tab PO SCH (20:37)
[2019-07-16] MEDS: Finasteride 5 MG Tab PO SCH (20:37)
[2019-07-16] MEDS: Azithromycin 500 MG in Sodium Chloride 0.9% 250 ML IV SCH (20:51)
[2019-07-16] MEDS: Enoxaparin 40 MG/0.4 ML Syringe SUBCUT SCH (20:53)
[2019-07-16] MEDS: cefTRIAXone 2 GM Vial IVPUSH SCH (20:55)
[2019-07-16] MEDS: Furosemide 40 MG/4 ML VIAL IVPUSH SCH (20:56)
[2019-07-16] MEDS ORDERED: Furosemide 40 MG Tab PO SCH (21:00)
[2019-07-17] MEDS: Pantoprazole 40 MG Tab.CR PO SCH (06:29)
[2019-07-17] MEDS: Losartan 100 MG Tab PO SCH (08:42)
[2019-07-17] MEDS: Albuterol/Ipratropium 3.0-0.5 MG/3 ML Neb Soln NEB PRN ×2 (08:42→20:14)
[2019-07-17] MEDS: Polyethylene Glycol 3350 Powder 17 GM Packet PO SCH (08:43)
[2019-07-17] MEDS: Gabapentin 300 MG Cap PO SCH ×2 (08:43→21:15)
[2019-07-17] MEDS: Acetaminophen 500 MG Tab PO SCH ×4 (08:44→21:16)
[2019-07-17] MEDS: Saccharomyces Boulardii (Probiotic) 250 MG Cap PO SCH ×2 (08:44→21:15)
[2019-07-17] MEDS: guaiFENesin/Dextromethorphan 100-10 MG/5 ML Soln 5 ML Cup PO PRN ×3 (08:44→21:35)
[2019-07-17] MEDS: DULoxetine 30 MG Cap PO SCH ×2 (08:44→21:15)
[2019-07-17] MEDS: Furosemide 40 MG/4 ML VIAL IVPUSH SCH ×2 (08:49→14:12)
[2019-07-17] MEDS: Sodium Chloride 0.9% 10 ML Syringe FLUSH PRN ×4 (08:50→21:03)
--- NOTE | 2019-07-17 10:30 | PCM.PN ---
- General Info Date of Service: 07/17/19 Admission Dx/Problem (Free Text): Suraj was coughing a lot last night. Had a long hot shower this morning which helped pain. Using some [place] for breakthrough pain. EBONY wraps to chest helped with splinting a little bit. Had some large bowel movements yesterday. Weight is up 2 lbs. Weeping from left lower leg. - Patient Data Vitals - Most Recent: Last Vital Signs Temp 98.2 F 07/16/19 20:00 Pulse 92 07/17/19 03:15 Resp 20 07/17/19 03:15 BP 142/86 H 07/17/19 08:42 Pulse Ox 93 L 07/17/19 03:15 Weight - Most Recent: 348 lb 8 oz I&O - Last 24 Hours: Intake & Output 07/16/19 07/17/19 07/17/19 22:59 06:59 14:59 Intake Total 260 500 Output Total 600 1900 Balance -340 -1400 Lab Results Last 24 Hours: Laboratory Results - last 24 hr 07/16/19 07/16/19 07/17/19 Range/Units 06:20 17:38 06:35 POC Glucose 93 94 (80-116) mg/dL NT-Pro-B Natriuret Pep 53 (<=125) pg/mL Endy Results Last 24 Hours: Microbiology 07/14/19 21:10 Aerobic Blood Culture - Preliminary Blood - Venous - Lab Draw NO GROWTH AFTER 2 DAYS Anaerobic Blood Culture - Preliminary NO GROWTH AFTER 2 DAYS 07/14/19 20:55 Aerobic Blood Culture - Preliminary Blood - Venous NO GROWTH AFTER 2 DAYS Anaerobic Blood Culture - Preliminary NO GROWTH AFTER 2 DAYS Med Orders - Current: Current Medications Acetaminophen (Tylenol Extra Strength) 500 mg PO QID [facility] Last Admin: 07/17/19 08:44 Dose: 500 mg Albuterol (Proventil Neb Soln) 2.5 mg NEB Q2H PRN PRN Reason: Dyspnea Albuterol/Ipratropium (Duoneb 3.0-0.5 Mg/3 Ml) 3 ml NEB Q6H PRN PRN Reason: Dyspnea Last Admin: 07/17/19 08:42 Dose: 3 ml Bisacodyl (Dulcolax) 5 mg PO DAILY PRN PRN Reason: Constipation Calcium Carbonate/Glycine (Oyster Shell Calcium) 500 mg PO DAILY@1200 [facility] Last Admin: 07/16/19 13:21 Dose: 500 mg Ceftriaxone Sodium (Rocephin) 2 gm IVPUSH Q24H [facility] Last Admin: 07/16/19 20:55 Dose: 2 gm Celecoxib (Celebrex) 200 mg PO DAILY [facility] Last Admin: 07/15/19 08:48 Dose: 200 mg Diphenhydramine HCl (Benadryl) 25 mg PO Q4H PRN PRN Reason: Itching Last Admin: 07/15/19 18:47 Dose: 25 mg Docusate Sodium (Colace) 100 mg PO BID PRN PRN Reason: Constipation Duloxetine HCl (Cymbalta) 30 mg PO BID [facility] Last Admin: 07/17/19 08:44 Dose: 30 mg Enoxaparin Sodium (Lovenox) 40 mg SUBCUT Q24H [facility] Last Admin: 07/16/19 20:53 Dose: 40 mg Finasteride (Proscar) 5 mg PO BEDTIME [facility] Last Admin: 07/16/19 20:37 Dose: 5 mg Fluoxetine HCl (Prozac) 20 mg PO WITHDINNER [facility] Last Admin: 07/16/19 17:58 Dose: 20 mg Furosemide (Lasix) 40 mg PO BID [facility] Furosemide (Lasix) 40 mg IVPUSH BID@0900,1400 [facility] Gabapentin (Neurontin) 300 mg PO BID [facility] Last Admin: 07/17/19 08:43 Dose: 300 mg Guaifenesin/Phenylephrine HCl (Robitussin Dm) 10 ml PO Q4H PRN PRN Reason: Cough Last Admin: 07/17/19 08:44 Dose: 10 ml Hydrocortisone Acetate (Hydrocortisone Acetate 1% Crm) 0 gm TOP BID PRN PRN Reason: Rash Azithromycin 500 mg/ Sodium (Chloride) 250 mls @ 250 mls/hr IV Q24H [facility] Last Admin: 07/16/19 20:51 Dose: 250 mls/hr Ketorolac Tromethamine (Toradol) 30 mg IVPUSH Q6H PRN PRN Reason: MODERATE PAIN (4-6/10) Last Admin: 07/16/19 17:59 Dose: 30 mg Loratadine (Claritin) 10 mg PO DAILY PRN PRN Reason: Allergies Losartan Potassium (Cozaar) 100 mg PO DAILY [facility] Last Admin: 07/17/19 08:42 Dose: 100 mg Magnesium Hydroxide (Milk Of Magnesia) 30 ml PO DAILY PRN PRN Reason: Constipation Metformin HCl (Glucophage Xr) 1,000 mg PO WITHDINNER [facility] Last Admin: 07/16/19 17:58 Dose: 1,000 mg Multivitamins/Minerals/Vitamin C (Tab-A-Jorge) 1 tab PO DAILY@1200 [facility] Last Admin: 07/16/19 13:21 Dose: 1 tab Oxycodone/Acetaminophen (Percocet 325-5 Mg) 1 tab PO Q6H PRN PRN Reason: SEVERE PAIN () Pantoprazole Sodium (Protonix) 40 mg PO ACBREAKFAST [facility] Last Admin: 07/17/19 06:29 Dose: 40 mg Pneumococcal Polyvalent Vaccine (Pneumovax 23) 0.5 ml IM .ONCE ONE Stop: 07/17/19 23:13 Polyethylene Glycol (Miralax) 17 gm PO DAILY [facility] Last Admin: 07/17/19 08:43 Dose: Not Given Saccharomyces Boulardii (Florastor) 250 mg PO BID [facility] Last Admin: 07/17/19 08:44 Dose: 250 mg Sodium Chloride (Saline Flush) 10 ml FLUSH ASDIRECTED PRN PRN Reason: Keep Vein Open Last Admin: 07/17/19 08:50 Dose: 10 ml Tamsulosin HCl (Flomax) 0.4 mg PO DAILY@2000 [facility] Last Admin: 07/16/19 20:35 Dose: 0.4 mg Trazodone HCl (Trazodone) 150 mg PO BEDTIME [facility] Last Admin: 07/16/19 20:37 Dose: 150 mg Discontinued Medications Albuterol (Proventil Neb Soln) 2.5 mg NEB Q2H PRN PRN Reason: Dyspnea Benzonatate (Tessalon Perles) 100 mg PO TID [facility] Last Admin: 07/16/19 08:53 Dose: 100 mg Furosemide (Lasix) 40 mg PO DAILY [facility] Last Admin: 07/16/19 08:53 Dose: 40 mg Furosemide (Lasix) 40 mg IVPUSH ONETIME ONE Stop: 07/15/19 11:50 Last Admin: 07/15/19 12:05 Dose: 40 mg Furosemide (Lasix) 40 mg IVPUSH BID [facility] Last Admin: 07/17/19 08:49 Dose: 40 mg Hydrochlorothiazide (Hydrochlorothiazide) 25 mg PO DAILY [facility] Last Admin: 07/15/19 08:47 Dose: 25 mg Sodium Chloride (Normal Saline) 1,000 mls @ 125 mls/hr IV ASDIRECTED [facility] Last Admin: 07/15/19 08:02 Dose: 125 mls/hr Piperacillin Sod/Tazobactam (Sod 4.5 gm/ Sodium Chloride) 100 mls @ 200 mls/hr IV Q6H [facility] Last Admin: 07/15/19 16:20 Dose: 200 mls/hr Ketorolac Tromethamine (Toradol) 30 mg IVPUSH Q8H PRN PRN Reason: Pain Stop: 07/19/19 20:52 Last Admin: 07/14/19 21:04 Dose: 30 mg Morphine Sulfate (Morphine) 4 mg IVPUSH Q4H PRN PRN Reason: Pain Last Admin: 07/14/19 20:55 Dose: 4 mg Morphine Sulfate (Morphine) Confirm Administered Dose 2 mg .ROUTE .STK-MED ONE Stop: 07/14/19 21:03 Last Admin: 07/14/19 22:08 Dose: Not Given Multivitamins/Minerals/Vitamin C (Tab-A-Jorge) 1 tab PO DAILY [facility] Last Admin: 07/15/19 08:47 Dose: 1 tab Ondansetron HCl (Zofran) 4 mg IV Q4H PRN PRN Reason: Nausea/Vomiting Oxycodone/Acetaminophen (Percocet 325-5 Mg) 2 tab PO Q4H PRN PRN Reason: Pain (moderate 4-6) Last Admin: 07/15/19 08:06 Dose: 2 tab - Exam General: Alert, Oriented, Cooperative, No Acute Distress Lungs: Normal Respiratory Effort, Decreased Breath Sounds, Other (Broken ribs flail out with inspiration, closed fracture). No: Crackles, Wheezing Cardiovascular: Regular Rate, Regular Rhythm GI/Abdominal Exam: Normal Bowel Sounds, Soft, Non-Tender, Other (obese, SQ edema present 3/4 up abdomen.) Extremities: Pedal Edema (3+, weeping/blisters on LLE, stasis dermatitis present L>R) Skin: Warm Sepsis Event Note - Evaluation Sepsis Screening Result: No Definite Risk - Focused Exam Vital Signs: Vital Signs Pulse Resp BP BP Pulse Ox 07/17/19 08:42 142/86 H 07/17/19 03:15 92 20 130/57 L 93 L 07/17/19 00:00 94 94 L Date Exam was Performed: 07/17/19 Time Exam was Performed: 10:24 - Problem List & Annotations (1) Pneumonia SNOMED Code(s): 169447159 Code(s): J18.9 - PNEUMONIA, UNSPECIFIED ORGANISM Status: Acute Current Visit: Yes Qualifiers: Laterality: left (2) Rib fracture SNOMED Code(s): 16207123 Code(s): S22.39XA - FRACTURE OF ONE RIB, UNSP SIDE, INIT FOR CLOS FX Status : Acute Current Visit: Yes Qualifiers: Encounter type: subsequent encounter Rib fracture type: multiple ribs Laterality: left Annotation/Comment:: has visible movement of fractures on inspiration, no open fractures. Given his body habitus, we do not have rib belt large enough to help stablize. EBONY wrap to help with splinting. Incentive spirometry. (3) Peripheral edema SNOMED Code(s): 458233901 Code(s): R60.9 - EDEMA, UNSPECIFIED Status: Acute Current Visit: No Annotation/Comment:: Bilateral legs, abdomen: refused EBONY wraps/Compression stockings. Advised to ambulate to mobilize fluids. Non-adhesive dressing with Kerlix & EBONY wraps now that legs are weeping secondary to edema. Lasix IV 40 mg bid at 900 & 1400, IV infiltrated, weight is up 2 lbs. If they cannot get IV access will switch to Toresemide oral with metolazone as needed. (4) Diabetes SNOMED Code(s): 66505669 Code(s): E11.9 - TYPE 2 DIABETES MELLITUS WITHOUT COMPLICATIONS Status: Chronic Current Visit: Yes Qualifiers: Diabetes mellitus type: type 2 (5) Reflux gastritis SNOMED Code(s): 63691205, 15086361 Code(s): K29.60 - OTHER GASTRITIS WITHOUT BLEEDING Status: Chronic Current Visit: Yes (6) BPH (benign prostatic hyperplasia) SNOMED Code(s): 805169505 Code(s): N40.0 - BENIGN PROSTATIC HYPERPLASIA WITHOUT LOWER URINRY TRACT SYMP Status: Chronic Current Visit: No - Problem List Review Problem List Initiated/Reviewed/Updated: Yes - My Orders Last 24 Hours: My Active Orders 07/16/19 10:05 Dextromethorphan/guaiFENesin [Robitussin DM] 10 ml PO Q4H PRN 07/16/19 10:15 Ambulate [RC] ASDIRECTED 07/16/19 10:16 Intake and Output [RC] 06,14,22 07/16/19 10:19 Wound Care [RC] DAILY 07/16/19 12:00 Calcium Carbonate [Oyster Shell Calcium] 500 mg PO DAILY@1200 Multivitamins [Tab-A-Jorge] 1 tab PO DAILY@1200 07/16/19 21:00 Furosemide [Lasix] 40 mg PO BID 07/17/19 08:50 Daily Weight [Height and Weight] [RC] DAILY 07/17/19 09:00 polyethylene glycoL 3350 [MiraLAX] 17 gm PO DAILY 07/17/19 10:23 Cooling Warming Measures [RC] ASDIRECTED Heat Therapy [OM.PC] Routine 07/17/19 14:00 Furosemide [Lasix] 40 mg IVPUSH BID@0900,1400 07/17/19 23:12 Pneumococcal Polyvalent-23 Vac [Pneumovax 23] 0.5 ml IM .ONCE ONE 07/18/19 06:00 COMPREHENSIVE METABOLIC PN,CMP [CHEM] Routine - Plan Plan:: 1. Rocephin & Azithromycin day 3. Robitussin DM as needed for cough. Florastor 250 mg bid. 2. Pain control: Toradol 30 mg IV [id number] with scheduled Tylenol 500 mg qid. Percocet 1 tablet every 6 hrs as needed breakthrough pain. Ice as needed. 3. Diabetic diet, continue Metformin. Accuchecks bid. 4. DVT prophylaxis: Lovenox 40 mg daily. 5. Edema: Lasix IV bid at 0900 & 1400. daily weights. 5. Deconditioning: PT/OT consult. Dressing ordered for BLE weeping. 6. GI prophylaxis: Pantoprazole per formulary. Calcium to at noon for better absorption. Will need DEXA as outpatient.
[2019-07-17] MEDS: Ketorolac 30 MG/ML SDV IVPUSH PRN ×2 (10:54→17:32)
[2019-07-17] MEDS: Multivitamin Tab PO SCH (12:42)
[2019-07-17] MEDS: Calcium Carbonate 500 MG Tablet PO SCH (12:45)
[2019-07-17] MEDS: FLUoxetine 20 MG Cap PO SCH (17:32)
[2019-07-17] MEDS: metFORMIN 500 MG Tab.ER PO SCH (17:32)
[2019-07-17] MEDS: Tamsulosin 0.4 MG Cap.ER PO SCH (20:28)
[2019-07-17] MEDS: cefTRIAXone 2 GM Vial IVPUSH SCH (21:03)
[2019-07-17] MEDS: Azithromycin 500 MG in Sodium Chloride 0.9% 250 ML IV SCH (21:12)
[2019-07-17] MEDS: Finasteride 5 MG Tab PO SCH (21:15)
[2019-07-17] MEDS: traZODone 50 MG Tab PO SCH (21:16)
[2019-07-17] MEDS: Enoxaparin 40 MG/0.4 ML Syringe SUBCUT SCH (21:16)
[2019-07-17] MEDS ORDERED: Pneumococcal Polyvalent-23 Vaccine 0.5 ML SDV IM ONE (23:12)
[2019-07-18] MEDS: Ketorolac 30 MG/ML SDV IVPUSH PRN (02:32)
[2019-07-18] MEDS: Sodium Chloride 0.9% 10 ML Syringe FLUSH PRN ×5 (02:35→22:13)
[2019-07-18] MEDS: guaiFENesin/Dextromethorphan 100-10 MG/5 ML Soln 5 ML Cup PO PRN (03:58)
[2019-07-18] MEDS: Albuterol/Ipratropium 3.0-0.5 MG/3 ML Neb Soln NEB PRN ×2 (03:58→13:15)
[2019-07-18] MEDS: Furosemide 40 MG/4 ML VIAL IVPUSH SCH ×2 (09:01→13:22)
[2019-07-18] MEDS: Saccharomyces Boulardii (Probiotic) 250 MG Cap PO SCH ×2 (09:04→20:20)
[2019-07-18] MEDS: Polyethylene Glycol 3350 Powder 17 GM Packet PO SCH (09:04)
[2019-07-18] MEDS: Losartan 100 MG Tab PO SCH (09:05)
[2019-07-18] MEDS: Pantoprazole 40 MG Tab.CR PO SCH (09:05)
[2019-07-18] MEDS: DULoxetine 30 MG Cap PO SCH ×2 (09:05→20:20)
[2019-07-18] MEDS: Acetaminophen 500 MG Tab PO SCH ×4 (09:05→20:21)
[2019-07-18] MEDS: Gabapentin 300 MG Cap PO SCH ×2 (09:09→20:21)
--- NOTE | 2019-07-18 12:30 | PCM.PN ---
- General Info Date of Service: 07/18/19 Admission Dx/Problem (Free Text): Breathing better, down 5 lbs from yesterday. Ambulating to the bathroom. Still fluid subcutaneous in abdomen, legs. PT/OT to see today. - Patient Data Vitals - Most Recent: Last Vital Signs Temp 97.7 F 07/18/19 07:40 Pulse 85 07/18/19 07:40 Resp 20 07/18/19 07:40 BP 145/79 H 07/18/19 09:05 Pulse Ox 97 07/18/19 07:40 Weight - Most Recent: 143 lb 3 oz I&O - Last 24 Hours: Intake & Output 07/17/19 07/18/19 07/18/19 22:59 06:59 14:59 Intake Total 1050 300 240 Output Total 1300 Balance -250 300 240 Lab Results Last 24 Hours: Laboratory Results - last 24 hr 07/17/19 07/18/19 Range/Units 17:41 06:30 Sodium 143 (135-145) mmol/L Potassium 4.1 (3.5-5.3) mmol/L Chloride 106 (100-110) mmol/L Carbon Dioxide 31 (21-32) mmol/L BUN 19 H (7-18) mg/dL Creatinine 1.1 (0.70-1.30) mg/dL Est Cr Clr Drug Dosing 61.50 mL/min Estimated GFR (MDRD) > 60 (>60) BUN/Creatinine Ratio 17.3 (9-20) Glucose 96 (80-116) mg/dL POC Glucose 105 (80-116) mg/dL Calcium 8.6 (8.6-10.2) mg/dL Total Bilirubin 0.3 (0.1-1.3) mg/dL AST 24 D (5-25) IU/L ALT 33 D (12-36) U/L Alkaline Phosphatase 97 (56-112) IU/L Total Protein 6.1 (6.0-8.0) g/dL Albumin 2.5 L (3.2-4.6) g/dL Globulin 3.6 g/dL Albumin/Globulin Ratio 0.7 [facility] Results Last 24 Hours: Microbiology 07/17/19 02:15 Gram Stain - Final Sputum - Expectorated Sputum Culture - Preliminary Yeast Isolated 07/14/19 21:10 Aerobic Blood Culture - Preliminary Blood - Venous - Lab Draw NO GROWTH AFTER 3 DAYS Anaerobic Blood Culture - Preliminary NO GROWTH AFTER 3 DAYS 07/14/19 20:55 Aerobic Blood Culture - Preliminary Blood - Venous NO GROWTH AFTER 3 DAYS Anaerobic Blood Culture - Preliminary NO GROWTH AFTER 3 DAYS Med Orders - Current: Current Medications Acetaminophen (Tylenol Extra Strength) 500 mg PO QID [facility] Last Admin: 07/18/19 09:05 Dose: 500 mg Albuterol (Proventil Neb Soln) 2.5 mg NEB Q2H PRN PRN Reason: Dyspnea Albuterol/Ipratropium (Duoneb 3.0-0.5 Mg/3 Ml) 3 ml NEB Q6H PRN PRN Reason: Dyspnea Last Admin: 07/18/19 03:58 Dose: 3 ml Bisacodyl (Dulcolax) 5 mg PO DAILY PRN PRN Reason: Constipation Calcium Carbonate/Glycine (Oyster Shell Calcium) 500 mg PO DAILY@1200 [facility] Last Admin: 07/17/19 12:45 Dose: 500 mg Ceftriaxone Sodium (Rocephin) 2 gm IVPUSH Q24H [facility] Last Admin: 07/17/19 21:03 Dose: 2 gm Celecoxib (Celebrex) 200 mg PO DAILY [facility] Last Admin: 07/15/19 08:48 Dose: 200 mg Diphenhydramine HCl (Benadryl) 25 mg PO Q4H PRN PRN Reason: Itching Last Admin: 07/15/19 18:47 Dose: 25 mg Docusate Sodium (Colace) 100 mg PO BID PRN PRN Reason: Constipation Duloxetine HCl (Cymbalta) 30 mg PO BID [facility] Last Admin: 07/18/19 09:05 Dose: 30 mg Enoxaparin Sodium (Lovenox) 40 mg SUBCUT Q24H [facility] Last Admin: 07/17/19 21:16 Dose: 40 mg Finasteride (Proscar) 5 mg PO BEDTIME [facility] Last Admin: 07/17/19 21:15 Dose: 5 mg Fluoxetine HCl (Prozac) 20 mg PO WITHDINNER [facility] Last Admin: 07/17/19 17:32 Dose: 20 mg Furosemide (Lasix) 40 mg PO BID [facility] Furosemide (Lasix) 40 mg IVPUSH BID@0900,1400 [facility] Last Admin: 07/18/19 09:01 Dose: 40 mg Gabapentin (Neurontin) 300 mg PO BID [facility] Last Admin: 07/18/19 09:09 Dose: 300 mg Guaifenesin/Phenylephrine HCl (Robitussin Dm) 10 ml PO Q4H PRN PRN Reason: Cough Last Admin: 07/18/19 03:58 Dose: 10 ml Hydrocortisone Acetate (Hydrocortisone Acetate 1% Crm) 0 gm TOP BID PRN PRN Reason: Rash Azithromycin 500 mg/ Sodium (Chloride) 250 mls @ 250 mls/hr IV Q24H [facility] Last Admin: 07/17/19 21:12 Dose: 250 mls/hr Ketorolac Tromethamine (Toradol) 30 mg IVPUSH Q6H PRN PRN Reason: MODERATE PAIN (4-6/10) Last Admin: 07/18/19 02:32 Dose: 30 mg Loratadine (Claritin) 10 mg PO DAILY PRN PRN Reason: Allergies Losartan Potassium (Cozaar) 100 mg PO DAILY [facility] Last Admin: 07/18/19 09:05 Dose: 100 mg Magnesium Hydroxide (Milk Of Magnesia) 30 ml PO DAILY PRN PRN Reason: Constipation Metformin HCl (Glucophage Xr) 1,000 mg PO WITHDINNER [facility] Last Admin: 07/17/19 17:32 Dose: 1,000 mg Multivitamins/Minerals/Vitamin C (Tab-A-Jorge) 1 tab PO DAILY@1200 [facility] Last Admin: 07/17/19 12:42 Dose: 1 tab Oxycodone/Acetaminophen (Percocet 325-5 Mg) 1 tab PO Q6H PRN PRN Reason: SEVERE PAIN (7-10/10) Pantoprazole Sodium (Protonix) 40 mg PO ACBREAKFAST [facility] Last Admin: 07/18/19 09:05 Dose: 40 mg Polyethylene Glycol (Miralax) 17 gm PO DAILY [facility] Last Admin: 07/18/19 09:04 Dose: Not Given Saccharomyces Boulardii (Florastor) 250 mg PO BID [facility] Last Admin: 07/18/19 09:04 Dose: 250 mg Sodium Chloride (Saline Flush) 10 ml FLUSH ASDIRECTED PRN PRN Reason: Keep Vein Open Last Admin: 07/18/19 09:01 Dose: 10 ml Tamsulosin HCl (Flomax) 0.4 mg PO DAILY@2000 [facility] Last Admin: 07/17/19 20:28 Dose: 0.4 mg Trazodone HCl (Trazodone) 150 mg PO BEDTIME [facility] Last Admin: 07/17/19 21:16 Dose: 150 mg Discontinued Medications Albuterol (Proventil Neb Soln) 2.5 mg NEB Q2H PRN PRN Reason: Dyspnea Benzonatate (Tessalon Perles) 100 mg PO TID [facility] Last Admin: 07/16/19 08:53 Dose: 100 mg Furosemide (Lasix) 40 mg PO DAILY [facility] Last Admin: 07/16/19 08:53 Dose: 40 mg Furosemide (Lasix) 40 mg IVPUSH ONETIME ONE Stop: 07/15/19 11:50 Last Admin: 07/15/19 12:05 Dose: 40 mg Furosemide (Lasix) 40 mg IVPUSH BID [facility] Last Admin: 07/17/19 08:49 Dose: 40 mg Hydrochlorothiazide (Hydrochlorothiazide) 25 mg PO DAILY [facility] Last Admin: 07/15/19 08:47 Dose: 25 mg Sodium Chloride (Normal Saline) 1,000 mls @ 125 mls/hr IV ASDIRECTED [facility] Last Admin: 07/15/19 08:02 Dose: 125 mls/hr Piperacillin Sod/Tazobactam (Sod 4.5 gm/ Sodium Chloride) 100 mls @ 200 mls/hr IV Q6H [facility] Last Admin: 07/15/19 16:20 Dose: 200 mls/hr Ketorolac Tromethamine (Toradol) 30 mg IVPUSH Q8H PRN PRN Reason: Pain Stop: 07/19/19 20:52 Last Admin: 07/14/19 21:04 Dose: 30 mg Morphine Sulfate (Morphine) 4 mg IVPUSH Q4H PRN PRN Reason: Pain Last Admin: 07/14/19 20:55 Dose: 4 mg Morphine Sulfate (Morphine) Confirm Administered Dose 2 mg .ROUTE .STK-MED ONE Stop: 07/14/19 21:03 Last Admin: 07/14/19 22:08 Dose: Not Given Multivitamins/Minerals/Vitamin C (Tab-A-Jorge) 1 tab PO DAILY [facility] Last Admin: 07/15/19 08:47 Dose: 1 tab Ondansetron HCl (Zofran) 4 mg IV Q4H PRN PRN Reason: Nausea/Vomiting Oxycodone/Acetaminophen (Percocet 325-5 Mg) 2 tab PO Q4H PRN PRN Reason: Pain (moderate 4-6) Last Admin: 07/15/19 08:06 Dose: 2 tab Pneumococcal Polyvalent Vaccine (Pneumovax 23) 0.5 ml IM .ONCE ONE Stop: 07/17/19 23:13 - Exam General: Alert, Oriented, Cooperative, No Acute Distress Lungs: Clear to Auscultation (Rt, ), Normal Respiratory Effort, Decreased Breath Sounds (LLL) Cardiovascular: Regular Rate, Regular Rhythm GI/Abdominal Exam: Normal Bowel Sounds, Soft, Non-Tender, No Distention, Other ( SQ edema long-term up pannus) Extremities: Pedal Edema (3+ BLE) Sepsis Event Note - Evaluation Sepsis Screening Result: No Definite Risk - Focused Exam Vital Signs: Vital Signs Temp Pulse Resp BP BP Pulse Ox Pulse Ox 07/18/19 09:05 145/79 H 07/18/19 07:40 97.7 F 85 20 145/79 H 97 07/18/19 04:15 88 07/18/19 03:00 94 L 07/18/19 02:40 97.7 F 84 20 158/96 H 93 L Date Exam was Performed: 07/18/19 Time Exam was Performed: 12:26 - Problem List & Annotations (1) Pneumonia SNOMED Code(s): 525162813 Code(s): J18.9 - PNEUMONIA, UNSPECIFIED ORGANISM Status: Acute Current Visit: Yes Qualifiers: Laterality: left Annotation/Comment:: sputum showed yeast but will hold of treatment at this time as fluconazole interacts with Azithromycin. Repeat CXR today. (2) Rib fracture SNOMED Code(s): 01166867 Code(s): S22.39XA - FRACTURE OF ONE RIB, UNSP SIDE, INIT FOR CLOS FX Status : Acute Current Visit: Yes Qualifiers: Encounter type: subsequent encounter Rib fracture type: multiple ribs Laterality: left Annotation/Comment:: has visible movement of fractures on inspiration, no open fractures. Given his body habitus, we do not have rib belt large enough to help stablize. EBONY wrap to help with splinting. Incentive spirometry. (3) Peripheral edema SNOMED Code(s): 506438262 Code(s): R60.9 - EDEMA, UNSPECIFIED Status: Acute Current Visit: No Annotation/Comment:: Bilateral legs, abdomen: refused EBONY wraps/Compression stockings. Advised to ambulate to mobilize fluids. Non-adhesive dressing with Kerlix & EBONY wraps now that legs are weeping secondary to edema. Lasix IV 40 mg bid at 900 & 1400, IV infiltrated, weight is down 5 lbs. When ready for discharge will change to Toresemide oral with metolazone as needed. (4) Diabetes SNOMED Code(s): 48384257 Code(s): E11.9 - TYPE 2 DIABETES MELLITUS WITHOUT COMPLICATIONS Status: Chronic Current Visit: Yes Qualifiers: Diabetes mellitus type: type 2 (5) Reflux gastritis SNOMED Code(s): 27850321, 85787948 Code(s): K29.60 - OTHER GASTRITIS WITHOUT BLEEDING Status: Chronic Current Visit: Yes (6) BPH (benign prostatic hyperplasia) SNOMED Code(s): 423449384 Code(s): N40.0 - BENIGN PROSTATIC HYPERPLASIA WITHOUT LOWER URINRY TRACT SYMP Status: Chronic Current Visit: No - Problem List Review Problem List Initiated/Reviewed/Updated: Yes - My Orders Last 24 Hours: My Active Orders 07/17/19 14:00 Furosemide [Lasix] 40 mg IVPUSH BID@0900,1400 - Plan Plan:: 1. Rocephin & Azithromycin day 4. Robitussin DM as needed for cough. Florastor 250 mg bid. 2. Pain control: Toradol 30 mg IV [id number] with scheduled Tylenol 500 mg qid. Percocet 1 tablet every 6 hrs as needed breakthrough pain. Ice as needed. 3. Diabetic diet, continue Metformin. Accuchecks bid. 4. DVT prophylaxis: Lovenox 40 mg daily. 5. Edema: Lasix IV bid at 0900 & 1400. daily weights. 5. Deconditioning: PT/OT consult. Dressing ordered for BLE weeping. 6. GI prophylaxis: Pantoprazole per formulary. Calcium to at noon for better absorption. Will need DEXA as outpatient.
[2019-07-18] MEDS: Multivitamin Tab PO SCH (12:42)
[2019-07-18] MEDS: Calcium Carbonate 500 MG Tablet PO SCH (12:42)
[2019-07-18] MEDS: FLUoxetine 20 MG Cap PO SCH (17:52)
[2019-07-18] MEDS: metFORMIN 500 MG Tab.ER PO SCH (17:53)
[2019-07-18] MEDS: Tamsulosin 0.4 MG Cap.ER PO SCH (20:20)
[2019-07-18] MEDS: Finasteride 5 MG Tab PO SCH (20:21)
[2019-07-18] MEDS: traZODone 50 MG Tab PO SCH (20:21)
[2019-07-18] MEDS: cefTRIAXone 2 GM Vial IVPUSH SCH (20:25)
[2019-07-18] MEDS: Azithromycin 500 MG in Sodium Chloride 0.9% 250 ML IV SCH (21:04)
[2019-07-18] MEDS: Enoxaparin 40 MG/0.4 ML Syringe SUBCUT SCH (21:06)
[2019-07-18] MEDS: diphenhydrAMINE 25 MG Cap PO PRN (22:10)
[2019-07-19] MEDS: Ketorolac 30 MG/ML SDV IVPUSH PRN (00:28)
[2019-07-19] MEDS: Sodium Chloride 0.9% 10 ML Syringe FLUSH PRN ×3 (00:32→14:44)
[2019-07-19] MEDS: Pantoprazole 40 MG Tab.CR PO SCH (06:30)
[2019-07-19] MEDS: Losartan 100 MG Tab PO SCH (09:34)
[2019-07-19] MEDS: Polyethylene Glycol 3350 Powder 17 GM Packet PO SCH (09:35)
[2019-07-19] MEDS: Acetaminophen 500 MG Tab PO SCH ×4 (09:35→21:26)
[2019-07-19] MEDS: Furosemide 40 MG/4 ML VIAL IVPUSH SCH ×3 (09:35→15:03)
[2019-07-19] MEDS: Saccharomyces Boulardii (Probiotic) 250 MG Cap PO SCH ×2 (09:35→21:18)
[2019-07-19] MEDS: DULoxetine 30 MG Cap PO SCH ×2 (09:35→21:18)
[2019-07-19] MEDS: Gabapentin 300 MG Cap PO SCH ×2 (09:38→21:20)
--- NOTE | 2019-07-19 11:50 | PCM.PN ---
- General Info Date of Service: 07/19/19 Admission Dx/Problem (Free Text): Patient slept well with oxygen overnight, stated best sleep he's had. Maybe have some sleep apnea will need tested as an outpatient. Coughing some stuff up. States he is having some diarrhea but not foul smelling. No abdominal pain. No nausea or vomiting. Feels his belly is less tight and his legs feel better. ambulating with PT/OT. Functional Status: Reports: Pain Controlled, Tolerating Diet, Ambulating, Incentive Spirometry - Patient Data Vitals - Most Recent: Last Vital Signs Temp 98.1 F 07/19/19 08:00 Pulse 82 07/19/19 08:00 Resp 20 07/19/19 08:00 BP 142/75 H 07/19/19 09:34 Pulse Ox 93 L 07/19/19 08:00 Weight - Most Recent: 339 lb 4 oz I&O - Last 24 Hours: Intake & Output 07/18/19 07/19/19 07/19/19 22:59 06:59 14:59 Intake Total 450 400 Output Total 1800 600 Balance -1350 -200 Lab Results Last 24 Hours: Laboratory Results - last 24 hr 07/18/19 07/19/19 Range/Units 17:47 06:02 POC Glucose 104 98 (80-116) mg/dL [facility] Results Last 24 Hours: Microbiology 07/17/19 02:15 Gram Stain - Final Sputum - Expectorated Sputum Culture - Final Yeast Isolated 07/14/19 21:10 Aerobic Blood Culture - Preliminary Blood - Venous - Lab Draw NO GROWTH AFTER 4 DAYS Anaerobic Blood Culture - Preliminary NO GROWTH AFTER 4 DAYS 07/14/19 20:55 Aerobic Blood Culture - Preliminary Blood - Venous NO GROWTH AFTER 4 DAYS Anaerobic Blood Culture - Preliminary NO GROWTH AFTER 4 DAYS Med Orders - Current: Current Medications Acetaminophen (Tylenol Extra Strength) 500 mg PO QID [facility] Last Admin: 07/19/19 09:35 Dose: 500 mg Albuterol (Proventil Neb Soln) 2.5 mg NEB Q2H PRN PRN Reason: Dyspnea Albuterol/Ipratropium (Duoneb 3.0-0.5 Mg/3 Ml) 3 ml NEB Q6H PRN PRN Reason: Dyspnea Last Admin: 07/18/19 13:15 Dose: 3 ml Azithromycin (Zithromax) 500 mg PO ONETIME ONE Stop: 04/14/20 21:01 Bisacodyl (Dulcolax) 5 mg PO DAILY PRN PRN Reason: Constipation Calcium Carbonate/Glycine (Oyster Shell Calcium) 500 mg PO DAILY@1200 [facility] Last Admin: 07/18/19 12:42 Dose: 500 mg Ceftriaxone Sodium (Rocephin) 2 gm IVPUSH Q24H [facility] Last Admin: 07/18/19 20:25 Dose: 2 gm Celecoxib (Celebrex) 200 mg PO DAILY [facility] Last Admin: 07/15/19 08:48 Dose: 200 mg Diphenhydramine HCl (Benadryl) 25 mg PO Q4H PRN PRN Reason: Itching Last Admin: 07/18/19 22:10 Dose: 25 mg Docusate Sodium (Colace) 100 mg PO BID PRN PRN Reason: Constipation Duloxetine HCl (Cymbalta) 30 mg PO BID [facility] Last Admin: 07/19/19 09:35 Dose: 30 mg Enoxaparin Sodium (Lovenox) 40 mg SUBCUT Q24H [facility] Last Admin: 07/18/19 21:06 Dose: 40 mg Finasteride (Proscar) 5 mg PO BEDTIME [facility] Last Admin: 07/18/19 20:21 Dose: 5 mg Fluoxetine HCl (Prozac) 20 mg PO WITHDINNER [facility] Last Admin: 07/18/19 17:52 Dose: 20 mg Furosemide (Lasix) 40 mg IVPUSH BID@0900,1400 [facility] Last Admin: 07/19/19 09:35 Dose: 40 mg Gabapentin (Neurontin) 300 mg PO BID [facility] Last Admin: 07/19/19 09:38 Dose: 300 mg Guaifenesin/Phenylephrine HCl (Robitussin Dm) 10 ml PO Q4H PRN PRN Reason: Cough Last Admin: 07/18/19 03:58 Dose: 10 ml Hydrocortisone Acetate (Hydrocortisone Acetate 1% Crm) 0 gm TOP BID PRN PRN Reason: Rash Ketorolac Tromethamine (Toradol) 30 mg IVPUSH Q6H PRN PRN Reason: MODERATE PAIN (4-6/10) Last Admin: 07/19/19 00:28 Dose: 30 mg Loratadine (Claritin) 10 mg PO DAILY PRN PRN Reason: Allergies Losartan Potassium (Cozaar) 100 mg PO DAILY [facility] Last Admin: 07/19/19 09:34 Dose: 100 mg Magnesium Hydroxide (Milk Of Magnesia) 30 ml PO DAILY PRN PRN Reason: Constipation Metformin HCl (Glucophage Xr) 1,000 mg PO WITHDINNER [facility] Last Admin: 07/18/19 17:53 Dose: 1,000 mg Multivitamins/Minerals/Vitamin C (Tab-A-Jorge) 1 tab PO DAILY@1200 [facility] Last Admin: 07/18/19 12:42 Dose: 1 tab Oxycodone/Acetaminophen (Percocet 325-5 Mg) 1 tab PO Q6H PRN PRN Reason: SEVERE PAIN () Pantoprazole Sodium (Protonix) 40 mg PO ACBREAKFAST [facility] Last Admin: 07/19/19 06:30 Dose: 40 mg Polyethylene Glycol (Miralax) 17 gm PO DAILY [facility] Last Admin: 07/19/19 09:35 Dose: Not Given Saccharomyces Boulardii (Florastor) 250 mg PO BID [facility] Last Admin: 07/19/19 09:35 Dose: 250 mg Sodium Chloride (Saline Flush) 10 ml FLUSH ASDIRECTED PRN PRN Reason: Keep Vein Open Last Admin: 07/19/19 09:38 Dose: 10 ml Tamsulosin HCl (Flomax) 0.4 mg PO DAILY@2000 [facility] Last Admin: 07/18/19 20:20 Dose: 0.4 mg Trazodone HCl (Trazodone) 150 mg PO BEDTIME [facility] Last Admin: 07/18/19 20:21 Dose: 150 mg Discontinued Medications Albuterol (Proventil Neb Soln) 2.5 mg NEB Q2H PRN PRN Reason: Dyspnea Benzonatate (Tessalon Perles) 100 mg PO TID [facility] Last Admin: 07/16/19 08:53 Dose: 100 mg Furosemide (Lasix) 40 mg PO DAILY [facility] Last Admin: 07/16/19 08:53 Dose: 40 mg Furosemide (Lasix) 40 mg IVPUSH ONETIME ONE Stop: 07/15/19 11:50 Last Admin: 07/15/19 12:05 Dose: 40 mg Furosemide (Lasix) 40 mg PO BID [facility] Furosemide (Lasix) 40 mg IVPUSH BID [facility] Last Admin: 07/17/19 08:49 Dose: 40 mg Hydrochlorothiazide (Hydrochlorothiazide) 25 mg PO DAILY [facility] Last Admin: 07/15/19 08:47 Dose: 25 mg Sodium Chloride (Normal Saline) 1,000 mls @ 125 mls/hr IV ASDIRECTED [facility] Last Admin: 07/15/19 08:02 Dose: 125 mls/hr Piperacillin Sod/Tazobactam (Sod 4.5 gm/ Sodium Chloride) 100 mls @ 200 mls/hr IV Q6H [facility] Last Admin: 07/15/19 16:20 Dose: 200 mls/hr Azithromycin 500 mg/ Sodium (Chloride) 250 mls @ 250 mls/hr IV Q24H [facility] Last Admin: 07/18/19 21:04 Dose: 250 mls/hr Ketorolac Tromethamine (Toradol) 30 mg IVPUSH Q8H PRN PRN Reason: Pain Stop: 07/19/19 20:52 Last Admin: 07/14/19 21:04 Dose: 30 mg Morphine Sulfate (Morphine) 4 mg IVPUSH Q4H PRN PRN Reason: Pain Last Admin: 07/14/19 20:55 Dose: 4 mg Morphine Sulfate (Morphine) Confirm Administered Dose 2 mg .ROUTE .STK-MED ONE Stop: 07/14/19 21:03 Last Admin: 07/14/19 22:08 Dose: Not Given Multivitamins/Minerals/Vitamin C (Tab-A-Jorge) 1 tab PO DAILY [facility] Last Admin: 07/15/19 08:47 Dose: 1 tab Ondansetron HCl (Zofran) 4 mg IV Q4H PRN PRN Reason: Nausea/Vomiting Oxycodone/Acetaminophen (Percocet 325-5 Mg) 2 tab PO Q4H PRN PRN Reason: Pain (moderate 4-6) Last Admin: 07/15/19 08:06 Dose: 2 tab Pneumococcal Polyvalent Vaccine (Pneumovax 23) 0.5 ml IM .ONCE ONE Stop: 07/17/19 23:13 Last Admin: 07/18/19 17:29 Dose: Not Given - Exam General: Alert, Oriented, Cooperative, No Acute Distress Lungs: Clear to Auscultation (Right), Normal Respiratory Effort, Decreased Breath Sounds (LLL). No: Crackles, Wheezing Cardiovascular: Regular Rate, Regular Rhythm GI/Abdominal Exam: Normal Bowel Sounds, Soft, Non-Tender, No Distention, Other ( edema half way up pannus) Extremities: Pedal Edema (3+ edema to distal thighs, less weeping from LLE, improving.) Sepsis Event Note - Evaluation Sepsis Screening Result: No Definite Risk - Focused Exam Vital Signs: Vital Signs Temp Pulse Resp BP BP Pulse Ox 07/19/19 09:34 142/75 H 07/19/19 08:00 98.1 F 82 20 93 L 07/19/19 00:00 98 F 89 20 146/95 H 92 L Date Exam was Performed: 07/19/19 Time Exam was Performed: 11:45 - Problem List & Annotations (1) Pneumonia SNOMED Code(s): 951569395 Code(s): J18.9 - PNEUMONIA, UNSPECIFIED ORGANISM Status: Acute Current Visit: Yes Qualifiers: Laterality: left Annotation/Comment:: sputum showed yeast but will hold of treatment at this time as fluconazole interacts with Azithromycin. CXR shows consolidation in LLL , comparison with June 25. Had CXR done in [place] on and 13 of July but do not have access to images(radiology did have for comparison). (2) Rib fracture SNOMED Code(s): 89413838 Code(s): S22.39XA - FRACTURE OF ONE RIB, UNSP SIDE, INIT FOR CLOS FX Status : Acute Current Visit: Yes Qualifiers: Encounter type: subsequent encounter Rib fracture type: multiple ribs Laterality: left Annotation/Comment:: has visible movement of fractures on inspiration, no open fractures. Given his body habitus, we do not have rib belt large enough to help stablize. EBONY wrap to help with splinting. Incentive spirometry. (3) Peripheral edema SNOMED Code(s): 076661704 Code(s): R60.9 - EDEMA, UNSPECIFIED Status: Acute Current Visit: No Annotation/Comment:: Bilateral legs, abdomen: refused EBONY wraps/Compression stockings. Advised to ambulate to mobilize fluids. Non-adhesive dressing with Kerlix & EBONY wraps now that legs are weeping secondary to edema. Lasix IV 40 mg bid at 900 & 1400, weight is down 10 lbs. Will monitor his output today, change to Torsemide tomorrow and possible discharge with home health. (4) Diabetes SNOMED Code(s): 75826184 Code(s): E11.9 - TYPE 2 DIABETES MELLITUS WITHOUT COMPLICATIONS Status: Chronic Current Visit: Yes Qualifiers: Diabetes mellitus type: type 2 (5) Reflux gastritis SNOMED Code(s): 95131092, 77957223 Code(s): K29.60 - OTHER GASTRITIS WITHOUT BLEEDING Status: Chronic Current Visit: Yes (6) BPH (benign prostatic hyperplasia) SNOMED Code(s): 867821413 Code(s): N40.0 - BENIGN PROSTATIC HYPERPLASIA WITHOUT LOWER URINRY TRACT SYMP Status: Chronic Current Visit: No - Problem List Review Problem List Initiated/Reviewed/Updated: Yes - My Orders Last 24 Hours: My Active Orders 07/18/19 15:55 CXR [Chest 2V] [CR] Routine 07/19/19 21:00 Azithromycin [Zithromax] 500 mg PO ONETIME ONE 07/20/19 06:00 BASIC METABOLIC PANEL,BMP [CHEM] Routine CBC WITH AUTO DIFF [HEME] Routine - Plan Plan:: 1. Rocephin & Azithromycin day 5. Robitussin DM as needed for cough. Florastor 250 mg bid. C. diff ordered. Will need sleep study as outpatient. 2. Pain control: Toradol 30 mg IV [id number] with scheduled Tylenol 500 mg qid. Percocet 1 tablet every 6 hrs as needed breakthrough pain. Ice as needed. 3. Diabetic diet, continue Metformin. Accuchecks bid. 4. DVT prophylaxis: Lovenox 40 mg daily. 5. Edema: Lasix IV bid at 0900 & 1400. daily weights. Monitor output if he has good diuresis today, will change to Torsemide oral tomorrow. 5. Deconditioning: PT/OT working on ambulating and ADLs. Dressing ordered for BLE weeping. 6. GI prophylaxis: Pantoprazole per formulary. Calcium to at noon for better absorption. 7. Will need DEXA as outpatient to assess extent of osteoporosis as he had pathologic fractures secondary to coughing. Possible discharge on with Home Health.
[2019-07-19] MEDS: Multivitamin Tab PO SCH (12:42)
[2019-07-19] MEDS: Calcium Carbonate 500 MG Tablet PO SCH (12:42)
[2019-07-19] MEDS ORDERED: Polyethylene Glycol 3350 Powder 17 GM Packet PO PRN (14:58)
[2019-07-19] MEDS: Torsemide 20 MG Tab PO SCH (15:49)
[2019-07-19] MEDS: Ibuprofen 200 MG Tab PO SCH ×2 (18:00→21:19)
[2019-07-19] MEDS: FLUoxetine 20 MG Cap PO SCH (18:01)
[2019-07-19] MEDS: metFORMIN 500 MG Tab.ER PO SCH (18:01)
[2019-07-19] MEDS ORDERED: Azithromycin 500 MG Tab PO ONE (21:00)
[2019-07-19] MEDS: Enoxaparin 40 MG/0.4 ML Syringe SUBCUT SCH (21:17)
[2019-07-19] MEDS: Tamsulosin 0.4 MG Cap.ER PO SCH (21:17)
[2019-07-19] MEDS: Albuterol/Ipratropium 3.0-0.5 MG/3 ML Neb Soln NEB PRN (21:21)
[2019-07-19] MEDS: Finasteride 5 MG Tab PO SCH (21:25)
[2019-07-19] MEDS: traZODone 50 MG Tab PO SCH (21:26)
[2019-07-19] MEDS: Cefdinir 300 MG Cap PO SCH (21:27)
[2019-07-19] MEDS: guaiFENesin/Dextromethorphan 100-10 MG/5 ML Soln 5 ML Cup PO PRN (21:29)
[2019-07-19] MEDS: diphenhydrAMINE 25 MG Cap PO PRN (21:30)
[2019-07-20] MEDS: Torsemide 20 MG Tab PO SCH ×2 (07:44→14:41)
[2019-07-20] MEDS: Pantoprazole 40 MG Tab.CR PO SCH (07:44)
[2019-07-20] MEDS: Acetaminophen 500 MG Tab PO SCH ×4 (08:42→20:00)
[2019-07-20] MEDS: Saccharomyces Boulardii (Probiotic) 250 MG Cap PO SCH ×2 (08:42→20:03)
[2019-07-20] MEDS: DULoxetine 30 MG Cap PO SCH ×2 (08:42→20:00)
[2019-07-20] MEDS: Gabapentin 300 MG Cap PO SCH ×2 (08:42→19:59)
[2019-07-20] MEDS: Losartan 100 MG Tab PO SCH (08:42)
[2019-07-20] MEDS: Ibuprofen 200 MG Tab PO SCH ×4 (08:43→20:02)
[2019-07-20] MEDS: Cefdinir 300 MG Cap PO SCH ×2 (08:43→20:01)
--- NOTE | 2019-07-20 10:59 | PCM.PN ---
- General Info Date of Service: 07/20/19 Admission Dx/Problem (Free Text): Suraj is down 5 more lbs today, diuresed well with Torsemide yesterday, already 1250 ml out this morning. Breathing is better, oxygen at night but does not qualify for home oxygen. He is having productive cough. Edema in abdomen & legs are improving, weeping is better on lower legs. Ambulating with cane to bathroom & in halls well. Functional Status: Reports: Pain Controlled, Tolerating Diet, Ambulating, Urinating - Patient Data Vitals - Most Recent: Last Vital Signs Temp 98.2 F 07/20/19 01:00 Pulse 88 07/20/19 01:00 Resp 20 07/20/19 01:00 BP 136/72 07/20/19 08:42 Pulse Ox 96 07/20/19 01:00 Weight - Most Recent: 334 lb 1.6 oz I&O - Last 24 Hours: Intake & Output 07/19/19 07/20/19 07/20/19 22:59 06:59 14:59 Intake Total 500 Output Total 2400 1550 450 Balance -2400 -1050 -450 Lab Results Last 24 Hours: Laboratory Results - last 24 hr 07/20/19 07/20/19 Range/Units 06:25 06:25 WBC 7.1 (4.5-12.0) X10-3/uL RBC 3.52 L (4.30-5.75) x10(6)uL Hgb 11.3 L (13.5-17.8) g/dL Hct 33.3 (30.0-51.3) % MCV 94.7 (80-96) fL MCH 32.1 (27.7-33.6) pg MCHC 33.8 (32.2-35.4) g/dL RDW 13.3 (11.5-15.5) % Plt Count 353 (125-369) X10(3)uL MPV 6.8 L (7.4-10.4) fL Neut % (Auto) 64.0 (46-82) % Lymph % (Auto) 19.8 (13-37) % [place] % (Auto) 9.9 (4-12) % Eos % (Auto) 5 (1.0-5.0) % Baso % (Auto) 1 (0-2) % Neut # (Auto) 4.6 (1.6-8.3) # Lymph # (Auto) 1.4 (0.6-5.0) # [place] # (Auto) 0.7 (0.0-1.3) # Eos # (Auto) 0.3 (0.0-0.8) # Baso # (Auto) 0.1 (0.0-0.2) # Sodium 142 (135-145) mmol/L Potassium 4.2 (3.5-5.3) mmol/L Chloride 104 (100-110) mmol/L Carbon Dioxide 33 H (21-32) mmol/L BUN 18 (7-18) mg/dL Creatinine 1.1 (0.70-1.30) mg/dL Est Cr Clr Drug Dosing 64.77 mL/min Estimated GFR (MDRD) > 60 (>60) BUN/Creatinine Ratio 16.4 (9-20) Glucose 99 (80-116) mg/dL Calcium 8.9 (8.6-10.2) mg/dL [place] Results Last 24 Hours: Microbiology 07/14/19 21:10 Aerobic Blood Culture - Final Blood - Venous - Lab Draw NO GROWTH AFTER 5 DAYS Anaerobic Blood Culture - Final NO GROWTH AFTER 5 DAYS 07/14/19 20:55 Aerobic Blood Culture - Final Blood - Venous NO GROWTH AFTER 5 DAYS Anaerobic Blood Culture - Final NO GROWTH AFTER 5 DAYS 07/17/19 02:15 Gram Stain - Final Sputum - Expectorated Sputum Culture - Final Yeast Isolated Med Orders - Current: Current Medications Acetaminophen (Tylenol Extra Strength) 500 mg PO QID [facility] Last Admin: 07/20/19 08:42 Dose: 500 mg Albuterol (Proventil Neb Soln) 2.5 mg NEB Q2H PRN PRN Reason: Dyspnea Albuterol/Ipratropium (Duoneb 3.0-0.5 Mg/3 Ml) 3 ml NEB Q6H PRN PRN Reason: Dyspnea Last Admin: 07/19/19 21:21 Dose: 3 ml Bisacodyl (Dulcolax) 5 mg PO DAILY PRN PRN Reason: Constipation Calcium Carbonate/Glycine (Oyster Shell Calcium) 500 mg PO DAILY@1200 [facility] Last Admin: 07/19/19 12:42 Dose: 500 mg Cefdinir (Omnicef) 300 mg PO BID [facility] Last Admin: 07/20/19 08:43 Dose: 300 mg Celecoxib (Celebrex) 200 mg PO DAILY [facility] Last Admin: 07/15/19 08:48 Dose: 200 mg Diphenhydramine HCl (Benadryl) 25 mg PO Q4H PRN PRN Reason: Itching Last Admin: 07/19/19 21:30 Dose: 25 mg Docusate Sodium (Colace) 100 mg PO BID PRN PRN Reason: Constipation Duloxetine HCl (Cymbalta) 30 mg PO BID [facility] Last Admin: 07/20/19 08:42 Dose: 30 mg Enoxaparin Sodium (Lovenox) 40 mg SUBCUT Q24H [facility] Last Admin: 07/19/19 21:17 Dose: 40 mg Finasteride (Proscar) 5 mg PO BEDTIME [facility] Last Admin: 07/19/19 21:25 Dose: 5 mg [facility]zac) [facility] Last Admin: 07/19/19 18:01 Dose: 20 mg Gabapentin (Neurontin) 300 mg PO BID [facility] Last Admin: 07/20/19 08:42 Dose: 300 mg Guaifenesin/Phenylephrine HCl (Robitussin Dm) 10 ml PO Q4H PRN PRN Reason: Cough Last Admin: 07/19/19 21:29 Dose: 10 ml Hydrocortisone Acetate (Hydrocortisone Acetate 1% Crm) 0 gm TOP BID PRN PRN Reason: Rash Ibuprofen (Motrin) 200 mg PO QID [facility] Last Admin: 07/20/19 08:43 Dose: 200 mg Loratadine (Claritin) 10 mg PO DAILY PRN PRN Reason: Allergies Losartan Potassium (Cozaar) 100 mg PO DAILY [facility] Last Admin: 07/20/19 08:42 Dose: 100 mg Magnesium Hydroxide (Milk Of Magnesia) 30 ml PO DAILY PRN PRN Reason: Constipation Metformin HCl (Glucophage Xr) 1,[facility] Last Admin: 07/19/19 18:01 Dose: 1,000 mg Multivitamins/Minerals/Vitamin C (Tab-A-Jorge) 1 tab PO DAILY@1200 [facility] Last Admin: 07/19/19 12:42 Dose: 1 tab Oxycodone/Acetaminophen (Percocet 325-5 Mg) 1 tab PO Q6H PRN PRN Reason: SEVERE PAIN (7-10/10) Pantoprazole Sodium (Protonix) 40 mg PO ACBREAKFAST [facility] Last Admin: 07/20/19 07:44 Dose: 40 mg Polyethylene Glycol (Miralax) 17 gm PO DAILY PRN PRN Reason: Constipation Saccharomyces Boulardii (Florastor) 250 mg PO BID [facility] Last Admin: 07/20/19 08:42 Dose: 250 mg Sodium Chloride (Saline Flush) 10 ml FLUSH ASDIRECTED PRN PRN Reason: Keep Vein Open Last Admin: 07/19/19 14:44 Dose: 10 ml Tamsulosin HCl (Flomax) 0.4 mg PO DAILY@1999 [facility] Last Admin: 07/19/19 21:17 Dose: 0.4 mg Torsemide (Demadex) 20 mg PO BIDDIURETIC [facility] Last Admin: 07/20/19 07:44 Dose: 20 mg Trazodone HCl (Trazodone) 150 mg PO BEDTIME [facility] Last Admin: 07/19/19 21:26 Dose: 150 mg Discontinued Medications Albuterol (Proventil Neb Soln) 2.5 mg NEB Q2H PRN PRN Reason: Dyspnea Azithromycin (Zithromax) 500 mg PO ONETIME ONE Stop: 07/19/19 21:01 Last Admin: 07/19/19 21:32 Dose: 500 mg Benzonatate (Tessalon Perles) 100 mg PO TID [facility] Last Admin: 07/16/19 08:53 Dose: 100 mg Ceftriaxone Sodium (Rocephin) 2 gm IVPUSH Q24H [facility] Last Admin: 07/18/19 20:25 Dose: 2 gm Furosemide (Lasix) 40 mg PO DAILY [facility] Last Admin: 07/16/19 08:53 Dose: 40 mg Furosemide (Lasix) 40 mg IVPUSH ONETIME ONE Stop: 07/15/19 11:50 Last Admin: 07/15/19 12:05 Dose: 40 mg Furosemide (Lasix) 40 mg PO BID [facility] Furosemide (Lasix) 40 mg IVPUSH BID [facility] Last Admin: 07/17/19 08:49 Dose: 40 mg Furosemide (Lasix) 40 mg IVPUSH BID@0900,1400 [facility] Last Admin: 07/19/19 15:03 Dose: Not Given Hydrochlorothiazide (Hydrochlorothiazide) 25 mg PO DAILY [facility] Last Admin: 07/15/19 08:47 Dose: 25 mg Sodium Chloride (Normal Saline) 1,000 mls @ 125 mls/hr IV ASDIRECTED [facility] Last Admin: 07/15/19 08:02 Dose: 125 mls/hr Piperacillin Sod/Tazobactam (Sod 4.5 gm/ Sodium Chloride) 100 mls @ 200 mls/hr IV Q6H [facility] Last Admin: 07/15/19 16:20 Dose: 200 mls/hr Azithromycin 500 mg/ Sodium (Chloride) 250 mls @ 250 mls/hr IV Q24H [facility] Last Admin: 07/18/19 21:04 Dose: 250 mls/hr Ketorolac Tromethamine (Toradol) 30 mg IVPUSH Q8H PRN PRN Reason: Pain Stop: 07/19/19 20:52 Last Admin: 07/14/19 21:04 Dose: 30 mg Ketorolac Tromethamine (Toradol) 30 mg IVPUSH Q6H PRN PRN Reason: MODERATE PAIN (4-6/10) Last Admin: 07/19/19 00:28 Dose: 30 mg Morphine Sulfate (Morphine) 4 mg IVPUSH Q4H PRN PRN Reason: Pain Last Admin: 07/14/19 20:55 Dose: 4 mg Morphine Sulfate (Morphine) Confirm Administered Dose 2 mg .ROUTE .STK-MED ONE Stop: 07/14/19 21:03 Last Admin: 07/14/19 22:08 Dose: Not Given Multivitamins/Minerals/Vitamin C (Tab-A-Jorge) 1 tab PO DAILY [facility] Last Admin: 07/15/19 08:47 Dose: 1 tab Ondansetron HCl (Zofran) 4 mg IV Q4H PRN PRN Reason: Nausea/Vomiting Oxycodone/Acetaminophen (Percocet 325-5 Mg) 2 tab PO Q4H PRN PRN Reason: Pain (moderate 4-6) Last Admin: 07/15/19 08:06 Dose: 2 tab Pneumococcal Polyvalent Vaccine (Pneumovax 23) 0.5 ml IM .ONCE ONE Stop: 07/17/19 23:13 Last Admin: 07/18/19 17:29 Dose: Not Given Polyethylene Glycol (Miralax) 17 gm PO DAILY [facility] Last Admin: 07/19/19 09:35 Dose: Not Given - Exam General: Alert, Oriented, Cooperative, No Acute Distress Lungs: Normal Respiratory Effort, Decreased Breath Sounds (some crackles on LLL) . No: Wheezing Cardiovascular: Regular Rate, Regular Rhythm GI/Abdominal Exam: Normal Bowel Sounds, Soft, Non-Tender, No Distention, Other ( edema BLQ) Extremities: Pedal Edema (3+ to knees, blister on RLE but no weeping this morning.) Peripheral Pulses: 2+: Radial (L), Radial (R) Psy/Mental Status: Normal Affect, Normal Mood Sepsis Event Note - Evaluation Sepsis Screening Result: No Definite Risk - Focused Exam Vital Signs: Vital Signs Temp Pulse Resp BP BP Pulse Ox 07/20/19 08:42 136/72 07/20/19 01:00 98.2 F 88 20 155/86 H 96 Date Exam was Performed: 07/20/19 Time Exam was Performed: 10:54 - Problem List & Annotations (1) Pneumonia SNOMED Code(s): 547896655 Code(s): J18.9 - PNEUMONIA, UNSPECIFIED ORGANISM Status: Acute Current Visit: Yes Qualifiers: Laterality: left Annotation/Comment:: Finished Azithromycin. IV infiltrated yesterday, switched to Cefdinir bid. (2) Rib fracture SNOMED Code(s): 24160061 Code(s): S22.39XA - FRACTURE OF ONE RIB, UNSP SIDE, INIT FOR CLOS FX Status : Acute Current Visit: Yes Qualifiers: Encounter type: subsequent encounter Rib fracture type: multiple ribs Laterality: left Annotation/Comment:: has visible movement of fractures on inspiration, no open fractures. Given his body habitus, we do not have rib belt large enough to help stablize. EBONY wrap to help with splinting. Incentive spirometry. (3) Peripheral edema SNOMED Code(s): 381453948 Code(s): R60.9 - EDEMA, UNSPECIFIED Status: Acute Current Visit: No Annotation/Comment:: Bilateral legs, abdomen: refused EBONY wraps/Compression stockings. Advised to ambulate to mobilize fluids. Torsemide 20 mg bid, potassium normal. weight down 15 lbs. (4) Diabetes SNOMED Code(s): 72977558 Code(s): E11.9 - TYPE 2 DIABETES MELLITUS WITHOUT COMPLICATIONS Status: Chronic Current Visit: Yes Qualifiers: Diabetes mellitus type: type 2 (5) Reflux gastritis SNOMED Code(s): 92685939, 11751691 Code(s): K29.60 - OTHER GASTRITIS WITHOUT BLEEDING Status: Chronic Current Visit: Yes (6) BPH (benign prostatic hyperplasia) SNOMED Code(s): 274913660 Code(s): N40.0 - BENIGN PROSTATIC HYPERPLASIA WITHOUT LOWER URINRY TRACT SYMP Status: Chronic Current Visit: No - Problem List Review Problem List Initiated/Reviewed/Updated: Yes - My Orders Last 24 Hours: My Active Orders 07/19/19 14:58 polyethylene glycoL 3350 [MiraLAX] 17 gm PO DAILY PRN 07/19/19 15:40 Torsemide [Demadex] 20 mg PO BIDDIURETIC 07/19/19 17:00 Ibuprofen [Motrin] 200 mg PO QID 07/19/19 21:00 Cefdinir [Omnicef] 300 mg PO BID 07/21/19 06:00 BASIC METABOLIC PANEL,BMP [CHEM] Routine - Plan Plan:: 1. Cefdinir, day 6 of antibiotic course. Robitussin DM as needed for cough. Florastor 250 mg bid. No diarrhea. Will need sleep study as outpatient. 2. Pain control: Ibuprofen 200 mg qid with scheduled Tylenol 500 mg qid. Percocet 1 tablet every 6 hrs as needed breakthrough pain. Ice/heat as needed. 3. Diabetic diet, continue Metformin. Accuchecks bid. 4. DVT prophylaxis: Lovenox 40 mg daily. 5. Edema:Torsemide 20 mg bid, daily weights. 6. Deconditioning: PT/OT working on ambulating and ADLs. Dressing ordered for BLE weeping. 7. GI prophylaxis: Pantoprazole per formulary. Calcium to at noon for better absorption. 8. Will need DEXA as outpatient to assess extent of osteoporosis as he had pathologic fractures secondary to coughing. Possible discharge on with Home Health.
[2019-07-20] MEDS: Calcium Carbonate 500 MG Tablet PO SCH (12:43)
[2019-07-20] MEDS: Multivitamin Tab PO SCH (12:43)
[2019-07-20] MEDS: FLUoxetine 20 MG Cap PO SCH (17:38)
[2019-07-20] MEDS: metFORMIN 500 MG Tab.ER PO SCH (17:38)
[2019-07-20] MEDS: diphenhydrAMINE 25 MG Cap PO PRN (18:58)
[2019-07-20] MEDS: guaiFENesin/Dextromethorphan 100-10 MG/5 ML Soln 5 ML Cup PO PRN (19:58)
[2019-07-20] MEDS: Albuterol/Ipratropium 3.0-0.5 MG/3 ML Neb Soln NEB PRN (19:58)
[2019-07-20] MEDS: traZODone 50 MG Tab PO SCH (19:59)
[2019-07-20] MEDS: Finasteride 5 MG Tab PO SCH (20:01)
[2019-07-20] MEDS: Tamsulosin 0.4 MG Cap.ER PO SCH (20:02)
[2019-07-20] MEDS: Enoxaparin 40 MG/0.4 ML Syringe SUBCUT SCH ×2 (20:04→20:48)
[2019-07-21] MEDS: Pantoprazole 40 MG Tab.CR PO SCH ×2 (06:28→07:58)
[2019-07-21 08:37] VITALS: BP 134/80
[2019-07-21] MEDS: Torsemide 20 MG Tab PO SCH (08:39)
[2019-07-21] MEDS: Losartan 100 MG Tab PO SCH (08:40)
[2019-07-21] MEDS: DULoxetine 30 MG Cap PO SCH (08:41)
[2019-07-21] MEDS: Saccharomyces Boulardii (Probiotic) 250 MG Cap PO SCH (08:41)
[2019-07-21] MEDS: Acetaminophen 500 MG Tab PO SCH (08:42)
[2019-07-21] MEDS: Gabapentin 300 MG Cap PO SCH (08:48)
[2019-07-21] MEDS: Ibuprofen 200 MG Tab PO SCH (09:22)
[2019-07-21] MEDS: Cefdinir 300 MG Cap PO SCH (09:23)
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
[2019-07-21] MEDS: guaiFENesin/Dextromethorphan 100-10 MG/5 ML Soln 5 ML Cup PO PRN (11:09)
[2019-07-21] MEDS: Albuterol/Ipratropium 3.0-0.5 MG/3 ML Neb Soln NEB PRN (11:16)
[2019-07-21] MEDS: Calcium Carbonate 500 MG Tablet PO SCH (11:58)
[2019-07-21] MEDS: Multivitamin Tab PO SCH (11:58)
[2019-07-21 15:30] VITALS: PULSE 92
== END 2019-07-21 12:35 | disposition home health service (06) | DRG 559 ==
LOC: FB.ED 20:45 → FB.MS 21:44
PROVIDERS: ADMIT Emergency Medicine; ATTEND Family Medicine
DX: M84.48XD Pathological fracture, other site, subsequent encounter for fracture with routine healing (principal); J18.9 Pneumonia, unspecified organism; H91.90 Unspecified hearing loss, unspecified ear; H54.7 Unspecified visual loss; Z68.42 Body mass index [BMI] 45.0-49.9, adult; I10 Essential (primary) hypertension; N40.0 Benign prostatic hyperplasia without lower urinary tract symptoms; M19.90 Unspecified osteoarthritis, unspecified site; Z66 Do not resuscitate; K29.60 Other gastritis without bleeding; E66.9 Obesity, unspecified; E11.9 Type 2 diabetes mellitus without complications; Z96.653 Presence of artificial knee joint, bilateral; K59.00 Constipation, unspecified; Z91.018 Allergy to other foods; R60.0 Localized edema; I48.91 Unspecified atrial fibrillation; K21.9 Gastro-esophageal reflux disease without esophagitis; M54.9 Dorsalgia, unspecified; G89.29 Other chronic pain; F32.9 Major depressive disorder, single episode, unspecified; Z79.899 Other long term (current) drug therapy
CPT/HCPCS: 36415; 71046; 80048; 80053; 82962; 83605; 83880; 85025; 87040; 87070; 87205; 94150; 94640; 94760; 96361; 96365; 96366; 96375; 97110-GO; 97110-GP; 97116-GP; 97161-GP; 97165-GO; 97530-GO; 99284; 99285-25; A9270-GY; J0456; J0696; J1650; J1885; J1940; J2270; J2543; J7030; J7050; J7620-GY

== ENCOUNTER 2022-09-15 06:09 | Day surgery (SDC) | payer MEDICARE, OTHER ==
[2022-09-15] MEDS ORDERED: Midazolam 1 MG/ML 2 ML SDV IV ONE (06:10)
[2022-09-15] MEDS ORDERED: Ketamine 500 mg/10 ML MDV IV ONE (06:10)
[2022-09-15] MEDS ORDERED: Propofol 200 MG/20 ML SDV IV ONE (06:10)
[2022-09-15] MEDS ORDERED: Sodium Chloride 0.9% 10 ML Syringe FLUSH PRN (06:15)
[2022-09-15] MEDS ORDERED: Lactated Ringers 1,000 ML IV SCH (06:15)
[2022-09-15 07:01] VITALS: BP 139/74; PULSE 70
[2022-09-15] MEDS ORDERED: Simethicone Drops 40 MG/0.6 ML 30 ML Bottle PO ONE (08:04)
== END 2022-09-15 09:27 | disposition home or self-care (01) ==
LOC: FB.SDS 06:09
PROVIDERS: ATTEND Surgery
DX: Z12.11 Encounter for screening for malignant neoplasm of colon (principal); K63.5 Polyp of colon; K57.30 Diverticulosis of large intestine without perforation or abscess without bleeding; F41.9 Anxiety disorder, unspecified; F32.A Depression, unspecified; K21.9 Gastro-esophageal reflux disease without esophagitis; E11.51 Type 2 diabetes mellitus with diabetic peripheral angiopathy without gangrene; I73.9 Peripheral vascular disease, unspecified; E66.9 Obesity, unspecified; Z79.899 Other long term (current) drug therapy; Z79.84 Long term (current) use of oral hypoglycemic drugs; Z98.890 Other specified postprocedural states; Z87.891 Personal history of nicotine dependence; Z68.42 Body mass index [BMI] 45.0-49.9, adult; Z88.0 Allergy status to penicillin
CPT/HCPCS: 00811; 45385; 88305; A9270; J2250; J2704; J3490; J7120